=== PATIENT | male | born 1980 | race African-American/Black ===

== ENCOUNTER 2024-07-14 11:13 | Inpatient (IN) | payer MEDICAID, OTHER ==
[~2024-07-14] VITALS: Ht 175.3 cm; Wt 116.0 kg
[2024-07-14] MEDS: FUROSEMIDE 40 MG/4 ML VIAL IV SCH (00:55)
--- NOTE | 2024-07-14 13:05 | ED.PDOC ---
Musculoskeletal HPI Comments 43 year old male presents to the ED with chief complaint of bilateral leg swelling. Patient reports that he has been experiencing worsening bilateral leg swelling with associated SOB with exertion for the past 4 days. Patient relays that he has history of CHF and DVT in bilateral legs and takes Lasix daily, however, he has been out of Xarelto for the past 2 months, being unable to get it at all. Patient denies any chest pain, headache, dizziness, numbness, weakness, or cough. Chief Complaint: Extremity Swelling Time Seen by MD: 13:02 Reviewed Notes: Nurses Notes, Medications, Allergies Allergies: Coded Allergies: NO KNOWN ALLERGIES (Unverified , 07/14/24) Information Source: Patient Mode of Arrival: Ambulatory Location: Bilateral Extremity Location: Leg Timing: Days Prehospital treatment: None Severity: Moderate Able to Move Extremity: Yes Bear Weight: Fully Pain: None Mechanism: Spontaneous Circumstances: Spontaneous Onset of Symptoms: Spontaneous Symptoms: Swelling DVT Risk Factors: CHF, DVT Past Medical History PAST MEDICAL HISTORY: CHF Past Medical History (Other): DVT bilateral legs Surgical History: Denies all surgeries Family History Family History: Reviewed,noncontributory to illness Social History Smoker: Non-Smoker Alcohol: Occasionally Drugs: Marijuana Lives In: Home Constitutional: denies: chills, diaphoresis, fatigue, fever, malaise, sweats, weakness, others EENTM: denies: blurred vision, double vision, ear bleeding, ear discharge, ear drainage, ear pain, ear ringing, eye pain, eye redness, hearing loss, mouth pain, mouth swelling, nasal discharge, nose bleeding, nose congestion, nose pain, photophobia, tearing, throat pain, throat swelling, voice changes, others Respiratory: reports: SOB with excertion; denies: cough, hemoptysis, orthopnea, SOB at rest, shortness of breath, stridor, wheezing, others Cardiovascular: reports: edema (Bilateral legs); denies: chest pain, dizzy spells, diaphoresis, Dyspnea on exertion, irregular heart beat, left arm pain, lightheadedness, palpitations, PND, syncope, others Gastrointestinal: denies: abdomen distended, abdominal pain, blood streaked bowels, constipated, diarrhea, dysphagia, difficulty swallowing, hematemesis, melena, nausea, poor appetite, poor fluid intake, rectal bleeding, rectal pain, vomiting, others Genitourinary: denies: burning, dysuria, flank pain, frequency, hematuria, incontinence, penile discharge, penile sore, pain, testicle pain, testicle swelling, urgency, others Neurological: denies: dizziness, fainting, headache, left sided numbness, left sided weakness, numbness, paresthesia, pre-existing deficit, right sided numbness, right sided weakness, seizure, speech problems, tingling, tremors, weakness, others Musculoskeletal: denies: back pain, gout, joint pain, joint swelling, muscle pain, muscle stiffness, neck pain, others Integumetry: denies: bruises, change in color, change in hair/nails, dryness, laceration, lesions, lumps, rash, wounds, others Allergic/Immunocompromised: denies: Difficulty Healing, Frequent Infections, Hives, Itching, others Hematologic/Lymphatic: denies: anemia, blood clots, easy bleeding, easy bruising, swollen glands, others Endocrine: denies: excessive hunger, excessive sweating, excessive thirst, excessive urination, flushing, intolerance to cold, intolerance to heat, unexplained weight gain, unexplained weight loss, others Psychiatric: denies: anxiety, bipolar disorder, depression, hopeless, panic disorder, schizophrenia, sleepless, suicidal, others All Other Systems: Reviewed and Negative Physical Exam General Appearance: Moderate Distress, Normal HEENT: Normal ENT Inspection, PERRL/EOMI Neck: Full Range of Motion, Non-Tender, Normal, Normal Inspection Respiratory: Chest Non-Tender, Lungs Clear, No Accessory Muscle Use, No Respiratory Distress, Normal Breath Sounds Cardiovascular: No Edema, No JVD, No Murmur, No Gallop, Normal Peripheral Pulses, Tachycardia Breast Exam: Deferred Gastrointestinal: No Organomegaly, Non Tender, No Pulsatile Mass, Normal Bowel Sounds, Soft Genitalia: Deferred Pelvic: Deferred Rectal: Deferred Extremities: No calf tenderness, Normal capillary refill, Normal range of motion, Non-tender, Pedal edema, Swelling (Bilateral lower extremity) Musculoskeletal : Apperance: Normal Neurologic: Alert, probe operator II-XII nml as Tested, No Motor Deficits, Normal Affect, Normal Mood, No Sensory Deficits Cerebellar Function: Normal Reflexes: Normal Skin: Dry, Normal Color, Warm Peripheral Pulses: 3+ Radial (R), 3+ Radial (L) Lymphatic: No Adenopathy Was a procedure done? Was a procedure done?: No Differential Diagnosis EXT Differential Diagnosis: Deep Vein Thrombosis, Strain X-Ray, Labs, Meds, VS Vital Signs Date Time Temp Pulse Resp B/P (MAP) Pulse Ox O2 Delivery O2 Flow Rate FiO2 07/14/24 12:32 117 07/14/24 12:29 97.9 117 18 122/97 (105) 99 Lab Test 07/14/24 13:10 Range/Units White Blood Count 7.0 4.4-10.8 10^3/uL Red Blood Count 4.85 4.5-5.90 10^6/uL Hemoglobin 15.9 13.5-17.5 g/dL Hematocrit 48.2 41.0-53.0 % Mean Corpuscular Volume 99.2 80.0-100.0 fL Mean Corpuscular Hemoglobin 32.7 H 28.0-32.0 pg Mean Corpuscular Hemoglobin Concent 33.0 32.0-36.0 g/dL Red Cell Distribution Width 14.8 H 11.8-14.3 % Platelet Count 178 140-450 10^3/uL Mean Platelet Volume 9.6 6.9-10.8 fL Neutrophils (%) (Auto) 64.4 37.0-80.0 % Lymphocytes (%) (Auto) 20.8 10.0-50.0 % Monocytes (%) (Auto) 12.2 H 0.0-12.0 % Eosinophils (%) (Auto) 1.9 0.0-7.0 % Basophils (%) (Auto) 0.7 0.0-2.0 % Neutrophils # (Auto) 4.5 1.6-8.6 10 ^3/uL Lymphocytes # (Auto) 1.5 0.4-5.4 10 ^3/uL Monocytes # (Auto) 0.9 0-1.3 10 ^3/uL Eosinophils # (Auto) 0.1 0-0.8 10 ^3/uL Basophils # (Auto) 0 0-0.2 10 ^3/uL Nucleated Red Blood Cells 0.1 % Sodium Level 146 H 136-145 mmol/L Potassium Level 3.7 3.5-5.1 mmol/L Chloride Level 110 H 98-107 mmol/L Carbon Dioxide Level 29 20-31 mmol/L Anion Gap 7 5-15 Blood Urea Nitrogen 14 9-23 mg/dL Creatinine 1.41 H 0.700-1.30 mg/dL Glomerular Filtration Rate Calc 64 >90 mL/min BUN/Creatinine Ratio 9.9 L 10.0-20.0 Serum Glucose 98 74-106 mg/dL Calcium Level 9.2 8.7-10.4 mg/dL B-Type Natriuretic Peptide 1282.51 0-100 pg/mL Patient alert. Complaining of bilateral lower extremity swelling. Vitals stable. Answering all questions pain On examination he does have swelling of lower extremity. Establish intravenous access. Was given Lasix. History of DVT. He has stopped taking his blood thinner. Reviewed his previous visit. Explained to the patient. Continue cardiac monitoring. EKG reviewed does not show any acute changes. Bilat DVT US: Findings: RIGHT SIDE: The common femoral vein demonstrates appropriate compressibility and waveform variability. There is compressibility/patency of the great saphenous vein at the proximal thigh. The femoral vein demonstrates appropriate compressibility and waveform variability. The deep femoral vein demonstrates appropriate compressibility and waveform variability. The popliteal vein demonstrates appropriate compressibility and waveform variability. There is normal compressibility at the tibioperoneal trunk. LEFT SIDE: The common femoral vein demonstrates appropriate compressibility and waveform variability. There is compressibility/patency of the great saphenous vein at the proximal thigh. The femoral vein demonstrates appropriate compressibility and waveform variability. The deep femoral vein demonstrates appropriate compressibility and waveform variability. The popliteal vein demonstrates appropriate compressibility and waveform variability. There is normal compressibility at the tibioperoneal trunk. Impression: 1. No right or left femoropopliteal venous thrombosis. Time of 1ST Reevaluation: 14:02 Reevaluation 1ST: Unchanged Patient Education/Counseling: Diagnosis, Treatment Family Education/Counseling: No Family Present Additional Information The following tests were ordered, and results were reviewed by me: Bilateral DVT US, EKG, BMP, BNP, CBC I reviewed and agreed with the following test results read by other providers: Bilateral DVT US I discussed treatment and results with medical personnel. Departure 1 Departure Time of Disposition: 13:32 Impression: Primary Impression: CHF (congestive heart failure) Qualified Codes: I50.43 - Acute on chronic combined systolic (congestive) and diastolic (congestive) heart failure Disposition: ADMITTED INPATIENT Admit to: Med Surg Condition: Guarded Critical Care Note Critical Care Time?: Yes (45 min-critical care time only) Stability Stability form required: No Heart Score Heart Score: Heart Score Response (Comments) Value History Slightly Suspicious 0 EKG Normal 0 Age <45 0 Risk Factors 1 or 2 risk factors 1 Troponin Normal limit 0 Total 1 I personally scribed for OMAYRA BERNARD MD ([email or web address]) on 07/14/24 at 13:05. Electronically submitted by Vito Jaimes ([email or web address]). I personally scribed for OMAYRA BERNARD MD ([email or web address]) on 07/14/24 at 15:31. Electronically submitted by Vito Jaimes ([email or web address]). OMAYRA BERNARD MD Jul 14, 2024 13:05
--- NOTE | 2024-07-14 13:39 | DVH ---
Bilateral lower extremity venous duplex Clinical History: dvt Comparison: None Technique: Duplex doppler evaluation of the deep venous systems of both lower extremities from the common femora l veins to the popliteal veins including color doppler and spectral/pulsed waveform analysis was perf ormed. Findings: RIGHT SIDE: The common femoral vein demonstrates appropriate compressibility and waveform variability. There is compressibility/patency of the great saphenous vein at the proximal thigh. The femoral vein demonstrates appropriate compressibility and waveform variability. The deep femoral vein demonstrates appropriate compressibility and waveform variability. The popliteal vein demonstrates appropriate compressibility and waveform variability. There is normal compressibility at the tibioperoneal trunk. LEFT SIDE: The common femoral vein demonstrates appropriate compressibility and waveform variability. There is compressibility/patency of the great saphenous vein at the proximal thigh. The femoral vein demonstrates appropriate compressibility and waveform variability. The deep femoral vein demonstrates appropriate compressibility and waveform variability. The popliteal vein demonstrates appropriate compressibility and waveform variability. There is normal compressibility at the tibioperoneal trunk. Impression: 1. No right or left femoropopliteal venous thrombosis.
[2024-07-14 13:45] LABS: Basophils # (auto) 0 10 ^3/uL (0-0.2); Basophils % (auto) 0.7 % (0.0-2.0); Eosinophils # (auto) 0.1 10 ^3/uL (0-0.8); Eosinophils % (auto) 1.9 % (0.0-7.0); Hematocrit 48.2 % (41.0-53.0); Hemoglobin 15.9 g/dL (13.5-17.5); Lymphocytes # (auto) 1.5 10 ^3/uL (0.4-5.4); Lymphocytes % (auto) 20.8 % (10.0-50.0); Mean Corpuscular Hemoglobin 32.7 pg (28.0-32.0); Mean Corpuscular Volume 99.2 fL (80.0-100.0); Monocytes # (auto) 0.9 10 ^3/uL (0-1.3); Monocytes % (auto) 12.2 % (0.0-12.0); Neutrophils # (auto) 4.5 10 ^3/uL (1.6-8.6); Neutrophils % (auto) 64.4 % (37.0-80.0); Nucleated Red Blood Cells % 0.1 %; Platelet Count (auto) 178 10^3/uL (140-450); Red Blood Cells 4.85 10^6/uL (4.5-5.90); Red Cell Distribution Width 14.8 % (11.8-14.3)
[2024-07-14 13:47] LABS: Potassium 3.7 mmol/L (3.5-5.1)
[2024-07-14 13:48] LABS: Anion Gap 7 (5-15); Calcium 9.2 mg/dL (8.7-10.4); Carbon Dioxide 29 mmol/L (20-31)
[2024-07-14 13:53] LABS: BUN/Creatinine Ratio 9.9 (10.0-20.0); Blood Urea Nitrogen 14 mg/dL (9-23); Glucose 98 mg/dL (74-106)
[2024-07-14 14:00] LABS: Chloride 110 mmol/L (98-107); Sodium 146 mmol/L (136-145)
[2024-07-14] MEDS: FUROSEMIDE 40 MG/4 ML VIAL IV ONE (20:25)
[2024-07-14 20:34] VITALS: PULSE 121; RESP 20; O2SAT 94
[2024-07-14] MEDS ORDERED: NITROGLYCERIN 0.4 MG SL TAB SL PRN (20:45)
[2024-07-14] MEDS ORDERED: MELATONIN 5 MG TAB PO PRN (20:45)
[2024-07-14] MEDS ORDERED: ONDANSETRON HCL 4 MG/2 ML VIAL IV PRN (20:45)
[2024-07-14] MEDS ORDERED: MORPHINE SULFATE INJ 2 MG/ml SYRG IV PRN (20:45)
[2024-07-14] MEDS ORDERED: ACETAMINOPHEN 325 MG TAB PO PRN (20:45)
--- NOTE | 2024-07-14 20:53 | DVH ---
EXAM: XY CHEST TWO VIEWS ROUTINE TECHNIQUE: Two radiographic views of the chest CLINICAL HISTORY: sob COMPARISON: None Findings/Impression: Frontal and lateral chest radiographs demonstrate no acute osseous or superficial soft tissue abnorma lities. The trachea is midline. Cardiomegaly with pulmonary vascular congestion. No pneumothorax, pleural effusions, or consolidations.
--- NOTE | 2024-07-15 00:13 | DVHHP2 ---
Admitting Diagnosis: Acute on chronic CHF exacerbation History of Present Illness History Source: Patient Exam Limitations: No limitations HPI Mr. Jw Cifuentes is a 43 year old male with a history of DVT, CHF who presents with a chief complaint of bilateral leg swelling. Patient reports that he has been experiencing worsening bilateral leg swelling with associated SOB with exertion for the past 4 days. Patient denies any chest pain, headache, dizziness, numbness, weakness, cough, fevers, chills, dysuria. Patient reports he is compliant with his medications and had stopped taken his Xarelto a couple months ago unknown if he was taken off it by PCP. Patient admitted for further evaluation and treatment. Past Medical History Cardiac: CHF Pulmonary: No pertinent Hx Central Nervous System: No pertinent Hx GI: No pertinent Hx Hemotology/Oncology: No pertinent Hx Hepatobiliary: No pertinent Hx Psychiatric: No pertinent Hx Musculoskeletal: No pertinent Hx Rheumotologic: No pertinent Hx Infectious Disease: No peritnent Hx ENT: No pertinent Hx Renal/: No pertinent Hx Endocrine: No pertinent Hx Dermatology: No pertinent Hx Others DVT Smoker: No Hx (Negative) Alocohol: Occassional Drugs: Marijuana, Amphetimines Domestic Violence: Neg Review of Systems Constitutional: No symptom reported Ears, Nose, & Throat: No symptom reported Eyes: No symptom reported Pulmonary/Respiratory: Dyspnea (exertional dyspnea) Cardiovascular: No symptom reported Gastrointestinal: No symptom reported Genitourinary: No symptom reported Musculoskeletal: No symptom reported Skin: No symptom reported Psychiatric: No symptom reported Endocrine: No symptom reported Hemotologic/Lymphatic: No symptom reported H&P Exam Vital Signs Vital Signs Date Time Temp Pulse Resp B/P (MAP) Pulse Ox O2 Delivery O2 Flow Rate FiO2 07/14/24 20:50 121 07/14/24 20:34 20 94 Room Air* 0 21 07/14/24 20:34 97.4 131/97 (108) 97.4 General Appeara: Well developed, Well nourished, Normal Appearance Head Exam: Normal inspection Neck Exam: Normal inspection, Non-tender, Normal alignment Eye Exam: bilateral eye Normal inspection, bilateral eye PERRL, bilateral eye EOMI Ear Exam: bilateral ear Auricle normal Nasal Exam: Normal inspection Mouth: Normal Inspection Pulmonary/Respiratory: Normal inspection, Normal breath sounds, Chest non- tender, Lungs clear Cardiovascular/Chest: Normal inspection, Edema, Regular rate, Normal Rhythm Peripheral Pulses: 2+ dorsalis pedis (R), 2+ dorsalis pedis (L), 2+ Radial (R), 2+ Radial (L) Abdominal Exam: Normal bowel sounds, Soft Male Genital Exam: Not done Legs: bilateral leg swelling 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 Exam: Normal hearing, Normal speech, PERRL Motor/Sensory: Normal sensory function, Normal motor function Neuro/Mental St: Alert, Oriented Appearance: Appropriate appearance, Appropriate insight Eye contact/ Speech: Cooperative, Good eye contact, Normal speech Thoughts/Psych: Normal thought pattern Skin Exam: Normal inspection, Normal color, Warm/dry Labs/Xrays Labs Test 07/14/24 13:10 Range/Units White Blood Count 7.0 4.4-10.8 10^3/uL Red Blood Count 4.85 4.5-5.90 10^6/uL Hemoglobin 15.9 13.5-17.5 g/dL Hematocrit 48.2 41.0-53.0 % Mean Corpuscular Volume 99.2 80.0-100.0 fL Mean Corpuscular Hemoglobin 32.7 H 28.0-32.0 pg Mean Corpuscular Hemoglobin Concent 33.0 32.0-36.0 g/dL Red Cell Distribution Width 14.8 H 11.8-14.3 % Platelet Count 178 140-450 10^3/uL Mean Platelet Volume 9.6 6.9-10.8 fL Neutrophils (%) (Auto) 64.4 37.0-80.0 % Lymphocytes (%) (Auto) 20.8 10.0-50.0 % Monocytes (%) (Auto) 12.2 H 0.0-12.0 % Eosinophils (%) (Auto) 1.9 0.0-7.0 % Basophils (%) (Auto) 0.7 0.0-2.0 % Neutrophils # (Auto) 4.5 1.6-8.6 10 ^3/uL Lymphocytes # (Auto) 1.5 0.4-5.4 10 ^3/uL Monocytes # (Auto) 0.9 0-1.3 10 ^3/uL Eosinophils # (Auto) 0.1 0-0.8 10 ^3/uL Basophils # (Auto) 0 0-0.2 10 ^3/uL Nucleated Red Blood Cells 0.1 % Sodium Level 146 H 136-145 mmol/L Potassium Level 3.7 3.5-5.1 mmol/L Chloride Level 110 H 98-107 mmol/L Carbon Dioxide Level 29 20-31 mmol/L Anion Gap 7 5-15 Blood Urea Nitrogen 14 9-23 mg/dL Creatinine 1.41 H 0.700-1.30 mg/dL Glomerular Filtration Rate Calc 64 >90 mL/min BUN/Creatinine Ratio 9.9 L 10.0-20.0 Serum Glucose 98 74-106 mg/dL Calcium Level 9.2 8.7-10.4 mg/dL Magnesium Level 1.7 1.6-2.6 mg/dL B-Type Natriuretic Peptide 1282.51 0-100 pg/mL Assessment/Plan Problem List: (1) CHF (congestive heart failure) Plan 43 yo male with known history of CHF and DVT presents to the hospital with bilateral leg swelling and shortness of breath with exertion. Patient found to have 1. Acute on chronic CHF exacerbation 2. Acute kidney injury Admit Telemetry unit Cardiology consultation, 2D echocardiogram Fluid Restriction/strict I&O's DVT ppx Heparin SC IV diuresis Furosemide Discussed all above with patient who verbalizes agreement and understanding of care plan. All questions were answered. Discussed assessment and care plan with supervising MD. Plan discussed with: Patient, Other Code Visit Code Visit Total Time (mins): 45 Additional Comments Additional Comments Additional Comments 83-year-old male with a known history of congestive heart failure initially admitted to the hospital with the increasing shortness a breath and bilateral leg swelling found to have 1. Acute CHF exacerbation unspecified 2. Bilateral leg swelling 3. Shortness of breath secondary to 1. Plan IV diuretics, 2D echo cardiology consultation. GUEVARA STOUT Jul 15, 2024 00:13 CATALINA SHIPLEY MD Jul 15, 2024 15:48
[2024-07-15 01:00] VITALS: O2SAT 96
[2024-07-15] MEDS: METOPROLOL TARTRATE 25 MG TAB PO SCH (01:04)
[2024-07-15] MEDS: HYDROcodone-ACET 5/325MG TAB PO PRN (01:05)
[2024-07-15] MEDS: HEPARIN SODIUM (PORCINE) 5000 UNITS/ML 1ML VIAL SC SCH (01:05)
[2024-07-15 06:39] LABS: Potassium 3.7 mmol/L (3.5-5.1); Sodium 144 mmol/L (136-145)
[2024-07-15 06:40] LABS: Anion Gap 8 (5-15); Calcium 9.2 mg/dL (8.7-10.4); Carbon Dioxide 28 mmol/L (20-31)
[2024-07-15 06:42] LABS: Chloride 108 mmol/L (98-107)
[2024-07-15 06:45] LABS: BUN/Creatinine Ratio 10.7 (10.0-20.0); Blood Urea Nitrogen 17 mg/dL (9-23)
[2024-07-15 08:04] LABS: Glucose 119 mg/dL (74-106)
[2024-07-15] MEDS: FAMOTIDINE 20 MG TAB PO SCH (09:50)
[2024-07-15 10:00] VITALS: PULSE 104; RESP 24; O2SAT 96
--- NOTE | 2024-07-15 15:12 | DVHSR ---
APPROVED REPORT EXAM: Two-dimensional and M-mode echocardiogram with Doppler and color Doppler. Blood Pressure: 120/92 mmHg INDICATION CHF SOB RISK FACTORS Height: 5' 9", Weight: 234 DIMENSIONS LVDd6.8 (3.8-5.7cm)LA (2D)5.0 (1.9-4.0cm)Aortic Root3.5 (2.0-3.7cm) LVDs6.5 (2.5-4.0cm)LA (MM) (1.9-4.0cm)Aortic Cusp Exc2.0 (1.5-2.0cm) EF (%) 10.0 (55-70%)Rt. Atrium4.7 (1.9-4.0cm)Asc. Aorta cm IVSd1.3 (0.7-1.1cm)RV (D) (1.8-2.4cm) PWd1.4 (0.7-1.1cm) Mitral Valve MitralMitral Stenosis E wave1.20m/sMV Mean GR.mmHg E/A ratio0.02D MVAcm2 Aortic Valve Aortic ValveAortic Stenosis V10.40m/Cris Mean GR.4mmHg V21.30m/Cris Peak GR.7mmHg LVOT Diameter2.5 (1.8-2.4cm)Doppler AVA1.51cm2 Pulmonic Valve V20.50m/s Tricuspid Valve TR Velocity2.90m/s [id number] Conclusion END STAGE DILATED CARDIOMYOPATHY DILATED ALL CARDIAC CHAMBERS WITH GLOBAL HYPOKINESIS LV EJECTION FRACTION IS ONLY 10% MODERATE DEGREE MR RVSP IS 40 MM OF HG AND IS HIGH NORMAL VALVES NO EFFUSION
[2024-07-15 19:00] VITALS: BP 118/72; PULSE 110; PULSE 56; RESP 18; RESP 19; TEMP 98.1; O2SAT 96; O2SAT 98
[2024-07-15] MEDS ORDERED: FURO40TA4 PO (19:07)
[2024-07-15] MEDS ORDERED: RIV20T PO (19:07)
[2024-07-15] MEDS ORDERED: POTA-180 PO (19:07)
[2024-07-15 20:00] VITALS: PULSE 113; PULSE 64; RESP 18; O2SAT 96
[2024-07-15 21:00] VITALS: BP 118/73; PULSE 60; RESP 20; TEMP 98.7; O2SAT 98
[2024-07-16] VITALS (7 sets, daily range): BP systolic 103–147; BP diastolic 52–80; PULSE 55–111; RESP 17–21; TEMP 97.4–98.4; O2SAT 96–100
[2024-07-16 07:27] LABS: Potassium 3.7 mmol/L (3.5-5.1)
[2024-07-16 07:28] LABS: Anion Gap 6 (5-15); Carbon Dioxide 31 mmol/L (20-31)
[2024-07-16 07:29] LABS: Calcium 9.3 mg/dL (8.7-10.4)
[2024-07-16 07:33] LABS: BUN/Creatinine Ratio 11.8 (10.0-20.0); Blood Urea Nitrogen 19 mg/dL (9-23)
[2024-07-16 07:34] LABS: Chloride 109 mmol/L (98-107); Glucose 109 mg/dL (74-106); Sodium 146 mmol/L (136-145)
--- NOTE | 2024-07-16 15:21 | ECG ---
[facility] Test Date: 2024-07-14 Test Time: 12:32:07 Pat Name: [facility] Gender: M Power Barker Operator: BRIDGET : 1980 Requested By: OMAYRA BERNARD Order Number: [id number] Reading MD: Shade Pizano Measurements Intervals [place] Rate: 117 P: 54 ME: 176 QRS: 25 QRSD: 89 T: 161 QT: 330 QTc: 461 Interpretive Statements Sinus tachycardia Left atrial enlargement Nonspecific T abnormalities, lateral leads Electronically Signed On 07-17-2024 13:04:45 PST by Shade Pizano Please click the below link to view image of tracing.
--- NOTE | 2024-07-16 15:22 | ECG ---
[facility] Test Date: 2024-07-14 Test Time: 20:50:46 Pat Name: [facility] Department: ER Room: [facility] Gender: M Appian Developer: MERNA : 1980 Requested By: OMAYRA BERNARD Order Number: [id number] Reading MD: Shade Pizano Measurements Intervals [place] Rate: 121 P: 83 NC: 205 QRS: 89 QRSD: 93 T: -63 QT: 322 QTc: 457 Interpretive Statements Sinus tachycardia Prolonged NC interval Left atrial enlargement Borderline repolarization abnormality Electronically Signed On 07-17-2024 13:05:19 PST by Shade Pizano Please click the below link to view image of tracing.
--- NOTE | 2024-07-16 16:30 | DVHPN2 ---
Subjective Patient was still has 2+ pitting edema. 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 Medications Current Medications Medications Dose Ordered Sig/Pravin Route Start Time Stop Time Status Last Admin Dose Admin Nitroglycerin 0.4 mg Q5MINP PRN SL 07/14/24 20:45 Morphine Sulfate 2 mg Q30M PRN IV 07/14/24 20:45 Ondansetron HCl 4 mg Q6HPRN PRN IV 07/14/24 20:45 Melatonin 5 mg ONCE@2200 PRN PO 07/14/24 20:45 Acetaminophen/ Hydrocodone Bitart 1 tab Q6HPRN PRN PO 07/14/24 20:45 07/15/24 01:05 1 TAB Acetaminophen 650 mg Q6HPRN PRN PO 07/14/24 20:45 Famotidine 20 mg DAILY PO 07/15/24 10:00 07/16/24 10:10 20 MG Furosemide 40 mg BID IV 07/14/24 22:00 07/16/24 10:12 40 MG Heparin Sodium (Porcine) 5,000 units BID SC 07/14/24 22:00 07/16/24 10:25 5,000 UNITS Metoprolol Tartrate 25 mg BID PO 07/14/24 22:00 07/16/24 10:12 25 MG Laboratory Results Laboratory Tests 07/14/24 13:10 07/16/24 06:10 Chemistry Test 07/16/24 06:10 Calcium Level 9.3 mg/dL (8.7-10.4) Assessment/Plan Assessment/Plan 83-year-old male with a known history of congestive heart failure initially admitted to the hospital with the increasing shortness a breath and bilateral leg swelling found to have 1. Acute CHF exacerbation unspecified 2. Bilateral leg swelling 3. Shortness of breath secondary to 1. -continue IV diuretics, discharge plan. Plan discussed with: Patient Date of Service: Jul 16, 2024 Billing Provider: CATALINA SHIPLEY MD Common Visit Codes: NOT BILLABLE CATALINA SHIPLEY MD Jul 16, 2024 16:30
[2024-07-17] VITALS (9 sets, daily range): BP systolic 107–133; BP diastolic 71–88; PULSE 81–111; RESP 16–48; TEMP 97.5–98.3; O2SAT 94–98
--- NOTE | 2024-07-17 02:16 | DVHINCON2 ---
DATE OF CONSULTATION: 07/16/2024 REFERRING PHYSICIAN: ____. CONSULTING PHYSICIAN: Dr. Rowe. INDICATION: Shortness of breath. HISTORY OF PRESENT ILLNESS: The patient is a 43-year-old male with history of CHF, DVT on anticoagulation, cardiomyopathy, history of illicit drug use including methamphetamine, who presented to the hospital with complaints of shortness of breath and lower extremity edema. Admitted with diagnosis of decompensated heart failure. Currently, the patient is on IV Lasix. PAST MEDICAL HISTORY: * Hypertension. * CHF. * DVT * Illicit drug use. MEDICATIONS: Per med rec. ALLERGIES: No known drug allergies. PHYSICAL EXAMINATION: GENERAL: Alert and awake, in no form of cardiopulmonary distress. VITAL SIGNS: Blood pressure 109/64, pulse 55 per minute, saturation 97%. HEENT: No carotid bruits. No jugular venous distention. CHEST: Bilateral air entry, scattered wheeze and rhonchi. CARDIOVASCULAR: Precordial and carotid pulses palpable. Normal S1 and S2. EXTREMITIES: Bilateral 2+ pitting edema. DIAGNOSTIC DATA: CBC is normal. Sodium 146, potassium 3.7, creatinine is 1.6, BNP is 1282. ASSESSMENT: * [id number] systolic heart failure. 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 * Methamphetamine use. * Hypertension. * History of deep venous thrombosis. RECOMMENDATIONS: * Agree with diuresis. * Continue IV Lasix. * Restrict salt and fluid intake. * Monitor input and output closely. * Advised the patient to refrain from illicit drug use. * Continue tele monitoring. Thank you for allowing me to participate in the care of this patient. MD NURY Brown/KURTIS/ESTEPHANIA TID: [id number] RECEIPT: [id number]
[2024-07-17] MEDS ORDERED: FURO40TA4 PO (17:28)
[2024-07-17] MEDS ORDERED: MET25T PO (17:28)
[2024-07-17] MEDS ORDERED: RIV20T PO (17:28)
[2024-07-17] MEDS ORDERED: POTA-180 PO (17:28)
[2024-07-17] MEDS ORDERED: POTA-215 PO (17:29)
--- NOTE | 2024-07-17 17:34 | DVHDS2 ---
Discharge Summary Date of Admission Jul 14, 2024 at 20:42 Date of Discharge: Jul 17, 2024 Labs/Diagnostic Data: Laboratory Results Test 07/16/24 06:10 07/14/24 13:10 Sodium Level 146 mmol/L (136-145) Potassium Level 3.7 mmol/L (3.5-5.1) Chloride Level 109 mmol/L (98-107) Carbon Dioxide Level 31 mmol/L (20-31) Anion Gap 6 (5-15) Blood Urea Nitrogen 19 mg/dL (9-23) Creatinine 1.61 mg/dL (0.700-1.30) Glomerular Filtration Rate Calc 54 mL/min (>90) BUN/Creatinine Ratio 11.8 (10.0-20.0) Serum Glucose 109 mg/dL (74-106) Calcium Level 9.3 mg/dL (8.7-10.4) White Blood Count 7.0 10^3/uL (4.4-10.8) Red Blood Count 4.85 10^6/uL (4.5-5.90) Hemoglobin 15.9 g/dL (13.5-17.5) Hematocrit 48.2 % (41.0-53.0) Mean Corpuscular Volume 99.2 fL (80.0-100.0) Mean Corpuscular Hemoglobin 32.7 pg (28.0-32.0) Mean Corpuscular Hemoglobin Concent 33.0 g/dL (32.0-36.0) Red Cell Distribution Width 14.8 % (11.8-14.3) Platelet Count 178 10^3/uL (140-450) Mean Platelet Volume 9.6 fL (6.9-10.8) Neutrophils (%) (Auto) 64.4 % (37.0-80.0) Lymphocytes (%) (Auto) 20.8 % (10.0-50.0) Monocytes (%) (Auto) 12.2 % (0.0-12.0) Eosinophils (%) (Auto) 1.9 % (0.0-7.0) Basophils (%) (Auto) 0.7 % (0.0-2.0) Neutrophils # (Auto) 4.5 10 ^3/uL (1.6-8.6) Lymphocytes # (Auto) 1.5 10 ^3/uL (0.4-5.4) Monocytes # (Auto) 0.9 10 ^3/uL (0-1.3) Eosinophils # (Auto) 0.1 10 ^3/uL (0-0.8) Basophils # (Auto) 0 10 ^3/uL (0-0.2) Nucleated Red Blood Cells 0.1 % Magnesium Level 1.7 mg/dL (1.6-2.6) B-Type Natriuretic Peptide 1282.51 pg/mL (0-100) Other Laboratory Tests 07/16/24 06:10 07/14/24 13:10 Brief Hx & Hospital Course: 43-year-old male he has been dealing with history of cardiomyopathy with EF of 10%, chronic methamphetamine use presented to the hospital with a by the leg swelling found to have acute CHF exacerbation with systolic dysfunction. Patient was given IV diuresis and started on beta-ernestine. Patient does have known history of DVT currently on Xarelto as well be due to patient medical history all the prescription B12 to be given. Patient was being discharged in his stable condition medical was follow up as an outpatient with the PCP but the repeat BMP has been as follow up with the Cardiology one week. Condition at Discharge: Stable Final Diagnosis/Problems List 1. Acute CHF exacerbation currently compensated 2. Bilateral leg swelling currently resolved incident 3. Cardiomyopathy with the EF of 10% 4. Chronic illicit drug use/methamphetamine use Discharge Disposition: Home SNF Discharge Will this Physician continue t: No Discharge Instruct/Medications Diet: Cardiac 2g Na,low cholest Activity: No Restrictions, As Tolerated Follow Up/Referral: Follow up with the PCP but the repeat BMP in one week Follow up with Dr. Rowe in one week Medications: Resume home medications including Lasix, Klor-Con, potassium, new medication given by his beta ernestine metoprolol tartrate 25 mg twice a day Discharge Statement: "Patient was advised to return to the ER or call 911 if any headaches, dizziness, shortness of breath, chest pain, abdominal pain, bleeding, fevers, or worsening of medical condition. Patient was counseled about treatment plan, medications, possible side effects, patientverbalized understanding. All questions were answered to the best of my ability. This discharge took greater then 30 minutes in planning, reviewing documentation, counseling the patient, and discussing with other team members." ASSESSMENT ASSESSMENT Assessment 1. Acute CHF exacerbation currently compensated 2. Bilateral leg swelling currently resolved incident 3. Cardiomyopathy with the EF of 10% 4. Chronic kidney disease drug use/methamphetamine use Date of Service: Jul 17, 2024 Billing Provider: CATALINA SHIPLEY MD Common Visit Codes: 81290-AZU/OBS DISCH DAY >30min CATALINA SHIPLEY MD Jul 17, 2024 17:34
== END 2024-07-17 21:00 | disposition home or self-care (01) | DRG 194 ==
LOC: ER 11:13 → TELE 20:42 → TELE-WESTW 07-15 18:48
PROVIDERS: ADMIT Nurse Practitioner Family; ATTEND Nurse Practitioner Family
DX: I13.0 Hypertensive heart and chronic kidney disease with heart failure and stage 1 through stage 4 chronic kidney disease, or unspecified chronic kidney disease (principal); N17.0 Acute kidney failure with tubular necrosis; I42.0 Dilated cardiomyopathy; I50.43 Acute on chronic combined systolic (congestive) and diastolic (congestive) heart failure; N18.9 Chronic kidney disease, unspecified; F15.90 Other stimulant use, unspecified, uncomplicated; Z86.718 Personal history of other venous thrombosis and embolism; Z87.891 Personal history of nicotine dependence
CPT/HCPCS: 36415; 71046; 80048; 83735; 83880; 85025; 93005; 93306; 93970; 99291; G0378

== ENCOUNTER 2024-09-04 11:18 | Inpatient (IN) | payer MEDICAID ==
[~2024-09-04] VITALS: Ht 175.3 cm; Wt 108.2 kg
[~2024-09-04 11:18] MED LIST: FURO40TA4 PO; MET25T PO; POTA-215 PO; RIV20T PO
[2024-09-04 11:29] VITALS: PULSE 100; RESP 18; O2SAT 97
--- NOTE | 2024-09-04 12:20 | ED.PDOC ---
History of Present Illness HPI Comments 43-year-old male who comes in with chief complaint of leg swelling times approximately two days. There has been no nausea, vomiting or diarrhea. The patient was also having some shortness a breath. He states that he was at a [employer] party and ever since then he has been going downhill. He denies any cough or chest pain. He does have a history of congestive heart failure and does take his Lasix. The shortness for breath seems to be worsening with ambulation and is leg swelling seems to be worsening so he came to the emergency department's for evaluation. There has been no fever or cough. Chief Complaint: Shortness of Breath Time Seen by MD: 11:42 Reviewed Notes: Nurses Notes, Medications, Allergies (No allergies to medications) Allergies: Coded Allergies: NO KNOWN ALLERGIES (Unverified , 07/14/24) Home Meds Active Scripts Potassium Chloride (Klor-Con M10) 10 Meq Tab, 1 TAB PO DAILY, #30 TAB 5 Refills Prov:CATALINA SHIPLEY MD 07/17/24 Metoprolol Tartrate (Lopressor) 25 Mg Tb, 25 MG PO BID, #120 TAB Prov:CATALINA SHIPLEY MD 07/17/24 Furosemide (Furosemide) 40 Mg Tab, 1 TAB PO DAILY, #60 TAB Prov:CATALINA SHIPLEY MD 07/17/24 Rivaroxaban (Xarelto Tablet) 20 Mg Tb, 1 TAB PO DAILY for 60 Days, #60 TAB Prov:CATALINA SHIPLEY MD 07/17/24 Information Source: Patient Mode of Arrival: Ambulatory Severity: Moderate Timing: Days Duration: Since onset Prehospital treatment: None Associated signs and symptoms Associated shortness a breath with leg swelling Past Medical History PAST MEDICAL HISTORY: CHF, High Lipids Past Medical History (Other): CKD Surgical History: Denies all surgeries Family History Family History: No family hx of Cancer, No family hx of DM, No family hx of Heart mike Social History Smoker: Cigarettes Alcohol: Occasionally Drugs: Marijuana, Methamphetamine Lives In: Home Constitutional: reports: weakness; denies: chills, diaphoresis, fatigue, fever, malaise, sweats, others EENTM: denies: blurred vision, double vision, ear bleeding, ear discharge, ear drainage, ear pain, ear ringing, eye pain, eye redness, hearing loss, mouth pain, mouth swelling, nasal discharge, nose bleeding, nose congestion, nose pain, photophobia, tearing, throat pain, throat swelling, voice changes, others Respiratory: reports: shortness of breath; denies: cough, hemoptysis, orthopnea, SOB at rest, SOB with excertion, stridor, wheezing, others Cardiovascular: denies: chest pain, dizzy spells, diaphoresis, Dyspnea on exertion, edema, irregular heart beat, left arm pain, lightheadedness, palpitations, PND, syncope, others Gastrointestinal: denies: abdomen distended, abdominal pain, blood streaked bowels, constipated, diarrhea, dysphagia, difficulty swallowing, hematemesis, melena, nausea, poor appetite, poor fluid intake, rectal bleeding, rectal pain, vomiting, others Genitourinary: denies: burning, dysuria, flank pain, frequency, hematuria, incontinence, penile discharge, penile sore, pain, testicle pain, testicle swelling, urgency, others Neurological: denies: dizziness, fainting, headache, left sided numbness, left sided weakness, numbness, paresthesia, pre-existing deficit, right sided numbness, right sided weakness, seizure, speech problems, tingling, tremors, weakness, others Musculoskeletal: reports: others (Leg edema); denies: back pain, gout, joint pain, joint swelling, muscle pain, muscle stiffness, neck pain Integumetry: denies: bruises, change in color, change in hair/nails, dryness, laceration, lesions, lumps, rash, wounds, others Allergic/Immunocompromised: denies: Difficulty Healing, Frequent Infections, Hives, Itching, others Hematologic/Lymphatic: denies: anemia, blood clots, easy bleeding, easy bruising, swollen glands, others Endocrine: denies: excessive hunger, excessive sweating, excessive thirst, excessive urination, flushing, intolerance to cold, intolerance to heat, unexplained weight gain, unexplained weight loss, others Psychiatric: denies: anxiety, bipolar disorder, depression, hopeless, panic disorder, schizophrenia, sleepless, suicidal, others Physical Exam General Appearance: Moderate Distress HEENT: Normal ENT Inspection, Pharynx Normal, TMs Normal Neck: Full Range of Motion, Non-Tender, Normal, Normal Inspection Respiratory: Chest Non-Tender, Decreased Breath Sounds, No Accessory Muscle Use, Rales, Respiratory Distress Cardiovascular: No Edema, No JVD, No Murmur, No Gallop, Normal Peripheral Pulses, Regular Rate/Rhythm Breast Exam: Deferred Gastrointestinal: No Organomegaly, Non Tender, No Pulsatile Mass, Normal Bowel Sounds, Soft Genitalia: Deferred Pelvic: Deferred Rectal: Deferred Extremities: No calf tenderness, Normal capillary refill, Pedal edema Musculoskeletal : Apperance: Normal Neurologic: Alert, set rider II-XII nml as Tested, Motor Weakness, Normal Affect, Normal Mood, No Sensory Deficits Cerebellar Function: Normal Reflexes: Normal Skin: Dry, Normal Color, Warm Lymphatic: No Adenopathy Was a procedure done? Was a procedure done?: No EKG EKG : Pulse Rate (adult): 112 [place]: Normal Cardiac Rhythm: ST Hypertrophy: LAE ST: Nonsp Differential Dx Considerations may include: Chest pain, CHF, acute on chronic diastolic heart failure, ACS, kidney failure X-Ray, Labs, Meds, VS Vital Signs Date Time Temp Pulse Resp B/P (MAP) Pulse Ox O2 Delivery O2 Flow Rate FiO2 09/04/24 11:52 18 97 Room Air* 0 21 09/04/24 11:29 100 18 97 Room Air* 0 21 09/04/24 11:29 97.6 100 18 125/100 (108) 97 09/04/24 11:29 97.6 100 18 125/100 (108) 97 97.6 Lab Test 09/04/24 14:18 09/04/24 12:56 Range/Units Troponin I High Sensitivity Pending 41 </=54 ng/L White Blood Count 8.7 4.4-10.8 10^3/uL Red Blood Count 4.78 4.5-5.90 10^6/uL Hemoglobin 15.5 13.5-17.5 g/dL Hematocrit 47.1 41.0-53.0 % Mean Corpuscular Volume 98.4 80.0-100.0 fL Mean Corpuscular Hemoglobin 32.4 H 28.0-32.0 pg Mean Corpuscular Hemoglobin Concent 33.0 32.0-36.0 g/dL Red Cell Distribution Width 15.4 H 11.8-14.3 % Platelet Count 172 140-450 10^3/uL Mean Platelet Volume 9.9 6.9-10.8 fL Neutrophils (%) (Auto) 77.3 37.0-80.0 % Lymphocytes (%) (Auto) 14.2 10.0-50.0 % Monocytes (%) (Auto) 7.4 0.0-12.0 % Eosinophils (%) (Auto) 0.6 0.0-7.0 % Basophils (%) (Auto) 0.5 0.0-2.0 % Neutrophils # (Auto) 6.7 1.6-8.6 10 ^3/uL Lymphocytes # (Auto) 1.2 0.4-5.4 10 ^3/uL Monocytes # (Auto) 0.6 0-1.3 10 ^3/uL Eosinophils # (Auto) 0.1 0-0.8 10 ^3/uL Basophils # (Auto) 0 0-0.2 10 ^3/uL Nucleated Red Blood Cells 0.1 % Sodium Level 139 136-145 mmol/L Potassium Level 4.5 3.5-5.1 mmol/L Chloride Level 106 98-107 mmol/L Carbon Dioxide Level 27 20-31 mmol/L Anion Gap 6 5-15 Blood Urea Nitrogen 9 9-23 mg/dL Creatinine 1.20 0.700-1.30 mg/dL Glomerular Filtration Rate Calc 77 >90 mL/min BUN/Creatinine Ratio 7.5 L 10.0-20.0 Serum Glucose 149 H 74-106 mg/dL Calcium Level 10.1 8.7-10.4 mg/dL B-Type Natriuretic Peptide 2226.53 0-100 pg/mL IV Hep-Lock has been ordered The patient was being given Lasix 40 mg IV push The BNP is 2226.53 The CBC and chemistry panel is within normal limits. The patient was somewhat hypertensive at 125/100 The chest x-ray shows: IMPRESSION: Findings described above may be seen with pulmonary vascular congestion in the appropriate clinical setting. The patient was diagnosis acute on chronic diastolic heart failure A cardiology consult will be obtained. Images Reviewed?: Images reviewed and evaluated by me Time of 1ST Reevaluation: 12:27 Reevaluation 1ST: Unchanged Time of 2ND Reevaluation: 14:34 Reevaluation 2ND: Unchanged Patient Education/Counseling: Diagnosis, Treatment, Prognosis Family Education/Counseling: No Family Present Departure 1 Departure Time of Disposition: 14:35 Impression: Primary Impression: Acute on chronic diastolic heart failure Additional Impression: Elevated brain natriuretic peptide (BNP) level Disposition: 09 ADMITTED INPATIENT Admit to: Tele Condition: Fair Critical Care Note Critical Care Time?: Yes (55 min-critical care time only) Stability Stability form required: Yes Unstable for transfer: Telemetry monitoring (Telemetry monitoring required), ED Physician Assesment (Clinical assesment) Heart Score Heart Score: Heart Score Response (Comments) Value History Moderate Suspicious 1 EKG Repolarization Disturb 1 Age <45 0 Risk Factors 1 or 2 risk factors 1 Troponin Normal limit 0 Total 3 OLIVIA SIMONS MD Sep 04, 2024 12:20
--- NOTE | 2024-09-04 12:31 | DVH ---
CLINICAL INFORMATION: 43 years old, Male; shortness of breath. TECHNIQUE: Frontal and lateral chest radiographs were obtained. COMPARISON: None FINDINGS: Lungs: Bilateral perihilar interstitial opacities. No focal consolidation. No pneumothorax or pleura l effusion. Cardiac: Moderate cardiomegaly. Pulmonary vasculature: Prominence of the pulmonary vasculature. Mediastinum/ibrahima: Within normal limits. Bones: No evidence of acute osseous abnormality. Other: No other significant finding. IMPRESSION: Findings described above may be seen with pulmonary vascular congestion in the appropriate clinical s etting.
[2024-09-04 13:17] LABS: Basophils # (auto) 0 10 ^3/uL (0-0.2); Basophils % (auto) 0.5 % (0.0-2.0); Eosinophils # (auto) 0.1 10 ^3/uL (0-0.8); Eosinophils % (auto) 0.6 % (0.0-7.0); Hematocrit 47.1 % (41.0-53.0); Hemoglobin 15.5 g/dL (13.5-17.5); Lymphocytes # (auto) 1.2 10 ^3/uL (0.4-5.4); Lymphocytes % (auto) 14.2 % (10.0-50.0); Mean Corpuscular Hemoglobin 32.4 pg (28.0-32.0); Mean Corpuscular Volume 98.4 fL (80.0-100.0); Monocytes # (auto) 0.6 10 ^3/uL (0-1.3); Monocytes % (auto) 7.4 % (0.0-12.0); Neutrophils # (auto) 6.7 10 ^3/uL (1.6-8.6); Neutrophils % (auto) 77.3 % (37.0-80.0); Nucleated Red Blood Cells % 0.1 %; Platelet Count (auto) 172 10^3/uL (140-450); Red Blood Cells 4.78 10^6/uL (4.5-5.90); Red Cell Distribution Width 15.4 % (11.8-14.3); White Blood Cell 8.7 10^3/uL (4.4-10.8)
[2024-09-04 13:27] LABS: Chloride 106 mmol/L (98-107); Potassium 4.5 mmol/L (3.5-5.1); Sodium 139 mmol/L (136-145)
[2024-09-04 13:28] LABS: Anion Gap 6 (5-15); Calcium 10.1 mg/dL (8.7-10.4); Carbon Dioxide 27 mmol/L (20-31)
[2024-09-04 13:33] LABS: BUN/Creatinine Ratio 7.5 (10.0-20.0); Blood Urea Nitrogen 9 mg/dL (9-23)
[2024-09-04 13:51] LABS: Glucose 149 mg/dL (74-106)
--- NOTE | 2024-09-04 15:08 | ECG ---
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
[2024-09-04 19:00] VITALS: PULSE 115; RESP 24; O2SAT 99
[2024-09-04] MEDS: FUROSEMIDE 40 MG/4 ML VIAL IV ONE (19:08)
[2024-09-04] MEDS ORDERED: ACETAMINOPHEN 325 MG TAB PO PRN (21:00)
[2024-09-04] MEDS ORDERED: NITROGLYCERIN 0.4 MG SL TAB SL PRN (21:00)
[2024-09-04] MEDS ORDERED: HYDROcodone-ACET 5/325MG TAB PO PRN (21:00)
[2024-09-04] MEDS ORDERED: MORPHINE SULFATE INJ 2 MG/ml SYRG IV PRN (21:00)
[2024-09-04] MEDS ORDERED: ONDANSETRON HCL 4 MG/2 ML VIAL IV PRN (21:00)
[2024-09-04] MEDS ORDERED: DOCUSATE SOD 100 MG CAP PO PRN (21:00)
[2024-09-04] MEDS: METOPROLOL TARTRATE 25 MG TAB PO SCH (22:00)
[2024-09-04 23:27] LABS: Urine Bacteria None Seen /hpf (None Seen)
[2024-09-04 23:37] LABS: Urine Blood Negative /uL (Negative); Urine Clarity Clear (Clear); Urine Color Light-Yellow (Yellow); Urine Protein, UAD Negative (Negative); Urine Specific Gravity 1.011 (1.001-1.035); Urine Squamous Epithelial Cell None Seen /hpf (<5); Urine Urobilinogen 2 mg/dL (Negative); Urine WBC < 1 /HPF (0-3); Urine pH 6.5 (5.0-9.0)
[2024-09-05] VITALS (9 sets, daily range): BP systolic 123–128; BP diastolic 78–93; PULSE 111–118; RESP 20–35; TEMP 97.8–98.2; O2SAT 95–98
--- NOTE | 2024-09-05 02:17 | DVHHP2 ---
LOLLY HERMOSILLO APPLIANCE SALES ASSOCIATE 09/05/24 0217: History of Present Illness Reason for Visit: SOB, BLE edema History of Present Illness 43-year-old male with past medical history of methamphetamine abuse, CHF Present with complaints of shortness of breath and Swelling of both lower extremities. Patient states he overdid it during [employer]. And I have fevers,Chills, chest pain, nausea, vomiting, palpitations. Cardiovascular: CHF Smoke: 1 pack per day ALCOHOL: occassional Drugs: Marijuana, Other (Methamphetamines) Review of Systems Constitutional: No: Fever, Chills, Sweats, Weakness, Malaise, Other Eyes: No: Pain, Vision change, Conjunctivae inflammation, Eyelid inflammation, Other, Redness ENT: No: Ear pain, Ear discharge, Nose pain, Nose discharge, Nose congestion, Mouth pain, Mouth swelling, Throat pain, Throat swelling, Other Respiratory: Shortness of breath, SOB with excertion; No: Cough, Dry, Wheezing, Hemoptysis, Pleuritic Pain, Sputum, Wheezing, Other Cardiovascular: Edema; No: Chest Pain, Palpitations, Orthopnea, Paroxysmal Noc. Dyspnea, Lt Headedness, Other Gastrointestinal: No: Nausea, Vomiting, Abdominal Pain, Diarrhea, Constipation, Melena, Hematochezia, Other Genitourinary: No Dysuria, No Frequency, No Incontinence, No Hematuria, No Retention, No Other Musculoskeletal: No: other, neck pain, shoulder pain, arm pain, back pain, hand pain, leg pain, foot pain Skin: No: Rash, Lesions, Jaundice, Bruising, Other Neurological: No: Weakness, Numbness, Incoordination, Change in speech, Confus ion, Seizures, Other Allergies: Coded Allergies: NO KNOWN ALLERGIES (Unverified , 07/14/24) Medications Current Medications Medications Dose Ordered Sig/Pravin Route Start Time Stop Time Status Last Admin Dose Admin Docusate Sodium 100 mg BIDPRN PRN PO 09/04/24 21:00 Acetaminophen 650 mg Q6HP PRN PO 09/04/24 21:00 Acetaminophen/ Hydrocodone Bitart 1 tab Q6HPRN PRN PO 09/04/24 21:00 Ondansetron HCl 4 mg Q4HP PRN IV 09/04/24 21:00 Nitroglycerin 0.4 mg Q5MINP PRN SL 09/04/24 21:00 Morphine Sulfate 2 mg Q30M PRN IV 09/04/24 21:00 Furosemide 40 mg BIDD IV 09/05/24 06:00 Metoprolol Tartrate 25 mg BID PO 09/04/24 22:00 Rivaroxaban 20 mg QPM PO 09/05/24 18:00 Exam Vital Signs Vital Signs Date Time Temp Pulse Resp B/P (MAP) Pulse Ox O2 Delivery O2 Flow Rate FiO2 09/05/24 00:25 114 22 126/78 (94) 97 09/05/24 00:25 Room Air* 0 21 09/04/24 22:58 98.9 98.9 General Appearance: Alert (Easily distracted. Refusing to make eye contact), Oriented X3, No acute distress HEENT: Atraumatic, PERRLA, EOMI Respiratory: Clear to auscultation, Normal air movement Cardiovascular: Regular rate, Normal S1, Normal S2 Abdominal: Normal bowel sounds, Soft, No tenderness Extremities: No clubbing, No cyanosis, Other (BLE Pitting edema 3+) Skin: No rashes, No breakdown Neuro: Normal speech, Strength at 5/5 X4 ext Psych/Mental Status: Mental status NL, Mood NL Labs/Xrays Labs Test 09/04/24 23:15 09/04/24 15:57 09/04/24 12:56 Range/Units Urine Color Light-yellow Yellow Urine Clarity Clear Clear Urine pH 6.5 5.0-9.0 Urine Specific [place] 1.011 1.001-1.035 Urine Protein Negative Negative Urine Ketones Negative Negative Urine Blood Negative Negative /uL Urine Nitrite Negative Negative Urine Bilirubin Negative Negative Urine Urobilinogen 2 H Negative mg/dL Urine Leukocyte Esterase Negative Negative /uL Urine RBC <1 0 - 3 /hpf Urine Microscopic WBC < 1 0-3 /HPF Urine Squamous Epithelial Cells None seen <5 /hpf Urine Bacteria None seen None Seen /hpf Urine Glucose Normal Normal mg/dL Troponin I High Sensitivity 43 </=54 ng/L White Blood Count 8.7 4.4-10.8 10^3/uL Red Blood Count 4.78 4.5-5.90 10^6/uL Hemoglobin 15.5 13.5-17.5 g/dL Hematocrit 47.1 41.0-53.0 % Mean Corpuscular Volume 98.4 80.0-100.0 fL Mean Corpuscular Hemoglobin 32.4 H 28.0-32.0 pg Mean Corpuscular Hemoglobin Concent 33.0 32.0-36.0 g/dL Red Cell Distribution Width 15.4 H 11.8-14.3 % Platelet Count 172 140-450 10^3/uL Mean Platelet Volume 9.9 6.9-10.8 fL Neutrophils (%) (Auto) 77.3 37.0-80.0 % Lymphocytes (%) (Auto) 14.2 10.0-50.0 % Monocytes (%) (Auto) 7.4 0.0-12.0 % Eosinophils (%) (Auto) 0.6 0.0-7.0 % Basophils (%) (Auto) 0.5 0.0-2.0 % Neutrophils # (Auto) 6.7 1.6-8.6 10 ^3/uL Lymphocytes # (Auto) 1.2 0.4-5.4 10 ^3/uL Monocytes # (Auto) 0.6 0-1.3 10 ^3/uL Eosinophils # (Auto) 0.1 0-0.8 10 ^3/uL Basophils # (Auto) 0 0-0.2 10 ^3/uL Nucleated Red Blood Cells 0.1 % Sodium Level 139 136-145 mmol/L Potassium Level 4.5 3.5-5.1 mmol/L Chloride Level 106 98-107 mmol/L Carbon Dioxide Level 27 20-31 mmol/L Anion Gap 6 5-15 Blood Urea Nitrogen 9 9-23 mg/dL Creatinine 1.20 0.700-1.30 mg/dL Glomerular Filtration Rate Calc 77 >90 mL/min BUN/Creatinine Ratio 7.5 L 10.0-20.0 Serum Glucose 149 H 74-106 mg/dL Calcium Level 10.1 8.7-10.4 mg/dL B-Type Natriuretic Peptide 2226.53 0-100 pg/mL Assessment/Plan Assessment/Plan Acute on chronic CHF exacerbation Plan Admit telemetry Cardiology consult. Echocardiogram. Diurese with lasix. Continue home medication. As needed anti-hypertensive for optimal BP management. UA/UDS pending Gi ppx pepcid / dvt ppx scd Plan discussed with: Patient My Orders Orders - LOLLY HERMOSILLO NP Procedure Category Date Status Time Admit ADMIT 09/04/24 Transmitted 20:56 Code Status CODE 09/04/24 Transmitted 20:56 Vital Signs ZAID 09/04/24 In Process 20:56 Review Orders With ZAID 09/04/24 In Process Adm. 20:56 Bedrest With Bathroom ZAID 09/04/24 In Process Privileg 20:56 Oxygen By Face Mask RT 09/04/24 Transmitted 20:56 Docusate Sodium PHA 09/04/24 In Process Capsule (Colace 21:00 Acetaminophen Tablet PHA 09/04/24 In Process (Tylenol Tablet) 21:00 Notify Of Changes ZAID 09/04/24 In Process From Base 20:56 Advance Directive ZAID 09/04/24 In Process 20:56 Echo 2d Mode Cardiac US 09/04/24 Logged DOP 20:56 Basic Metabolic Panel LAB 09/05/24 Logged 05:00 Basic Metabolic Panel LAB 09/06/24 Verified 05:00 Basic Metabolic Panel LAB 09/07/24 Verified 05:00 Basic Metabolic Panel LAB 09/08/24 Verified 05:00 Complete Blood Count LAB 09/05/24 Logged 05:00 Complete Blood Count LAB 09/06/24 Verified 05:00 Complete Blood Count LAB 09/07/24 Verified 05:00 Complete Blood Count LAB 09/08/24 Verified 05:00 Urine Bacterial KEYA 09/04/24 In Process Culture 20:56 Patient Condition ORDERS 09/04/24 Transmitted 20:56 Allergies ZAID 09/04/24 In Process 20:56 Hydrocodone-Acet PHA 09/04/24 In Process 5/325mg Tab ([place] 21:00 Ondansetron Hcl PHA 09/04/24 In Process (Zofran) 21:00 Sequential ZAID 09/04/24 In Process Compression Device Nitroglycerin PHA 09/04/24 In Process Sublingual (Ntrostat 21:00 Morphine Sulfate PHA 09/04/24 In Process Injection 21:00 Stat Ekg For Chest ZAID 09/04/24 In Process Pain 20:56 Notify Of Changes ZAID 09/04/24 In Process From Base 20:56 Music Coordinator For ZAID 09/04/24 In Process 24 Hours 20:56 Emergency Dysrhythmia ZAID 09/04/24 In Process Protocol 20:56 Rhythm Strips Once ZAID 09/04/24 In Process Every Shift 20:56 Oxygen By Nasal RT 09/04/24 Transmitted Cannula 20:56 Furosemide Injection PHA 09/05/24 In Process (Lasix Injection) 06:00 Metoprolol Tartrate PHA 09/04/24 In Process Tablet (Lopressor Ta 22:00 Rivaroxaban Tablet PHA 09/05/24 In Process (Xarelto Tablet) 18:00 Date of Service: Sep 05, 2024 Billing Provider: JONES TORREZ MD Common Visit Codes: NOT BILLABLE JONES TORREZ MD 09/05/24 1324: Review of Systems Allergies: Coded Allergies: NO KNOWN ALLERGIES (Unverified , 07/14/24) Assessment/Plan Assessment/Plan Patient seen evaluated and admitted by nurse practitioner this morning. Patient seen and evaluated by me this afternoon. I agree with nurse practitioner's evaluation, documentation, assessment and care plan as outlined. Plan discussed with: Patient LOLLY HERMOSILLO [employer]PL[employer] SALES ASSOCIATE Sep 05, 2024 02:17 JONES TORREZ MD Sep 05, 2024 13:24
[2024-09-05 05:33] LABS: Basophils # (auto) 0 10 ^3/uL (0-0.2); Basophils % (auto) 0.6 % (0.0-2.0); Eosinophils # (auto) 0.1 10 ^3/uL (0-0.8); Hematocrit 43.8 % (41.0-53.0); Hemoglobin 14.5 g/dL (13.5-17.5); Lymphocytes # (auto) 1.6 10 ^3/uL (0.4-5.4); Lymphocytes % (auto) 19.8 % (10.0-50.0); Mean Corpuscular Hemoglobin 32.3 pg (28.0-32.0); Mean Corpuscular Hgb Conc. 33.2 g/dL (32.0-36.0); Mean Corpuscular Volume 97.3 fL (80.0-100.0); Monocytes # (auto) 0.7 10 ^3/uL (0-1.3); Monocytes % (auto) 8.8 % (0.0-12.0); Neutrophils # (auto) 5.7 10 ^3/uL (1.6-8.6); Neutrophils % (auto) 69.8 % (37.0-80.0); Platelet Count (auto) 168 10^3/uL (140-450); Red Cell Distribution Width 15.2 % (11.8-14.3); White Blood Cell 8.2 10^3/uL (4.4-10.8)
[2024-09-05 05:39] LABS: Chloride 106 mmol/L (98-107); Potassium 3.9 mmol/L (3.5-5.1); Sodium 140 mmol/L (136-145)
[2024-09-05 05:40] LABS: Anion Gap 8 (5-15); Calcium 9.6 mg/dL (8.7-10.4); Carbon Dioxide 26 mmol/L (20-31)
[2024-09-05 05:45] LABS: BUN/Creatinine Ratio 8.9 (10.0-20.0); Blood Urea Nitrogen 11 mg/dL (9-23)
[2024-09-05 05:54] LABS: Glucose 126 mg/dL (74-106)
[2024-09-05] MEDS: FUROSEMIDE 40 MG/4 ML VIAL IV SCH (06:33)
--- NOTE | 2024-09-05 09:52 | ECG ---
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
[2024-09-05 13:22] LABS: Cannabinoid Screen, Urine Pos (NEGATIVE)
[2024-09-05 13:32] LABS: Amphetamine Screen, Urine Neg (NEGATIVE); Barbiturate Scree,Urine Neg (NEGATIVE); Benzodiazephine Screen, Urine Neg (NEGATIVE); Cocaine Screen, Urine Neg (NEGATIVE); Opiate Scree,Urine Neg (NEGATIVE); Phencyclidine Screen, Urine Neg (NEGATIVE)
[2024-09-05] MEDS: SPIRONOLACTONE 25 MG TAB PO SCH (17:44)
[2024-09-05] MEDS: RIVAROXABAN 20 MG TAB PO SCH (17:44)
[2024-09-05] MEDS: CARVEDILOL 3.125 MG TAB PO SCH (22:30)
[2024-09-06] VITALS (7 sets, daily range): BP systolic 94–123; BP diastolic 64–88; PULSE 98–115; RESP 17–22; TEMP 97.4–99.4; O2SAT 95–98
[2024-09-06 07:10] LABS: Basophils # (auto) 0.1 10 ^3/uL (0-0.2); Basophils % (auto) 0.7 % (0.0-2.0); Eosinophils # (auto) 0.1 10 ^3/uL (0-0.8); Eosinophils % (auto) 1.2 % (0.0-7.0); Hematocrit 45.5 % (41.0-53.0); Hemoglobin 15.2 g/dL (13.5-17.5); Lymphocytes # (auto) 1.5 10 ^3/uL (0.4-5.4); Lymphocytes % (auto) 18.2 % (10.0-50.0); Mean Corpuscular Hemoglobin 32.4 pg (28.0-32.0); Mean Corpuscular Hgb Conc. 33.5 g/dL (32.0-36.0); Mean Corpuscular Volume 96.9 fL (80.0-100.0); Monocytes # (auto) 0.6 10 ^3/uL (0-1.3); Monocytes % (auto) 7.9 % (0.0-12.0); Neutrophils # (auto) 5.9 10 ^3/uL (1.6-8.6); Nucleated Red Blood Cells % 0.1 %; Platelet Count (auto) 168 10^3/uL (140-450); Red Blood Cells 4.69 10^6/uL (4.5-5.90); White Blood Cell 8.2 10^3/uL (4.4-10.8)
[2024-09-06 07:21] LABS: Calcium 9.9 mg/dL (8.7-10.4); Chloride 104 mmol/L (98-107); Sodium 139 mmol/L (136-145)
[2024-09-06 07:22] LABS: Anion Gap 8 (5-15); Carbon Dioxide 27 mmol/L (20-31)
[2024-09-06 07:27] LABS: BUN/Creatinine Ratio 10.9 (10.0-20.0); Blood Urea Nitrogen 15 mg/dL (9-23)
[2024-09-06 07:29] LABS: Glucose 123 mg/dL (74-106)
[2024-09-06] MEDS ORDERED: FURO40TA4 PO (12:42)
[2024-09-06] MEDS ORDERED: POTA-215 PO (12:42)
[2024-09-06] MEDS ORDERED: MET25T PO (12:42)
[2024-09-06] MEDS ORDERED: RIV20T PO (12:42)
--- NOTE | 2024-09-06 12:44 | DVHDS2 ---
Discharge Summary Date of Admission Sep 04, 2024 at 20:56 Date of Discharge: Sep 06, 2024 Labs/Diagnostic Data: Laboratory Results Test 09/06/24 06:34 09/04/24 23:15 09/04/24 15:57 09/04/24 12:56 White Blood Count 8.2 10^3/uL (4.4-10.8) Red Blood Count 4.69 10^6/uL (4.5-5.90) Hemoglobin 15.2 g/dL (13.5-17.5) Hematocrit 45.5 % (41.0-53.0) Mean Corpuscular Volume 96.9 fL (80.0-100.0) Mean Corpuscular Hemoglobin 32.4 pg (28.0-32.0) Mean Corpuscular Hemoglobin Concent 33.5 g/dL (32.0-36.0) Red Cell Distribution Width 15.0 % (11.8-14.3) Platelet Count 168 10^3/uL (140-450) Mean Platelet Volume 10.0 fL (6.9-10.8) Neutrophils (%) (Auto) 72.0 % (37.0-80.0) Lymphocytes (%) (Auto) 18.2 % (10.0-50.0) Monocytes (%) (Auto) 7.9 % (0.0-12.0) Eosinophils (%) (Auto) 1.2 % (0.0-7.0) Basophils (%) (Auto) 0.7 % (0.0-2.0) Neutrophils # (Auto) 5.9 10 ^3/uL (1.6-8.6) Lymphocytes # (Auto) 1.5 10 ^3/uL (0.4-5.4) Monocytes # (Auto) 0.6 10 ^3/uL (0-1.3) Eosinophils # (Auto) 0.1 10 ^3/uL (0-0.8) Basophils # (Auto) 0.1 10 ^3/uL (0-0.2) Nucleated Red Blood Cells 0.1 % Sodium Level 139 mmol/L (136-145) Potassium Level 4.0 mmol/L (3.5-5.1) Chloride Level 104 mmol/L (98-107) Carbon Dioxide Level 27 mmol/L (20-31) Anion Gap 8 (5-15) Blood Urea Nitrogen 15 mg/dL (9-23) Creatinine 1.38 mg/dL (0.700-1.30) Glomerular Filtration Rate Calc 65 mL/min (>90) BUN/Creatinine Ratio 10.9 (10.0-20.0) Serum Glucose 123 mg/dL (74-106) Calcium Level 9.9 mg/dL (8.7-10.4) Urine Color Light-yellow (Yellow) Urine Clarity Clear (Clear) Urine pH 6.5 (5.0-9.0) Urine Specific [place] 1.011 (1.001-1.035) Urine Protein Negative (Negative) Urine Ketones Negative (Negative) Urine Blood Negative /uL (Negative) Urine Nitrite Negative (Negative) Urine Bilirubin Negative (Negative) Urine Urobilinogen 2 mg/dL (Negative) Urine Leukocyte Esterase Negative /uL (Negative) Urine RBC <1 /hpf (0 - 3) Urine Microscopic WBC < 1 /HPF (0-3) Urine Squamous Epithelial Cells None seen /hpf (<5) Urine Bacteria None seen /hpf (None Seen) Urine Glucose Normal mg/dL (Normal) Urine Opiates Screen Neg (NEGATIVE) Urine Fentanyl Screen Neg (NEGATIVE) Urine Barbiturates Screen Neg (NEGATIVE) Urine Phencyclidine Screen Neg (NEGATIVE) Urine Amphetamines Screen Neg (NEGATIVE) Urine Benzodiazepines Screen Neg (NEGATIVE) Urine Cocaine Screen Neg (NEGATIVE) Urine Cannabinoids Screen Pos (NEGATIVE) Troponin I High Sensitivity 43 ng/L (</=54) B-Type Natriuretic Peptide 2226.53 pg/mL (0-100) Other Laboratory Tests 09/06/24 06:34 Final Diagnosis/Problems List Acute on chronic congestive heart failure with biventricular dysfunction, congestive cardiomyopathy ejection fraction 10% Discharge Disposition: Home Discharge Instruct/Medications Diet: Consistent carbohydrate, Cardiac 2g Na,low cholest Diet comment: To limit your oral fluid intake to 1200 mL per 24 hours due to your heart failure. Activity: No Restrictions, As Tolerated Follow Up/Referral: Primary care physician next week and referral to table attendant Dr. Rowe for heart failure management Medications: Increase your furosemide to 40 mg twice a day. Continue other home medications as prescribed per discharge medication list. Discharge Statement: "Patient was advised to return to the ER or call 911 if any headaches, dizziness, shortness of breath, chest pain, abdominal pain, bleeding, fevers, or worsening of medical condition. Patient was counseled about treatment plan, medications, possible side effects, patientverbalized understanding. All questions were answered to the best of my ability. This discharge took greater then 30 minutes in planning, reviewing documentation, counseling the patient, and discussing with other team members." ASSESSMENT ASSESSMENT Assessment Acute on chronic congestive heart failure with biventricular dysfunction, congestive cardiomyopathy ejection fraction 10% JONES TORREZ MD Sep 06, 2024 12:43
--- NOTE | 2024-09-07 00:11 | DVHINCON2 ---
DATE OF CONSULTATION: 09/05/2024 REFERRING PHYSICIAN: . CONSULTING PHYSICIAN: Dr. Rowe. INDICATION: Shortness of breath. HISTORY OF PRESENT ILLNESS: The patient is a 43-year-old male with history of dilated cardiomyopathy secondary to illicit drug use, history of congestive heart failure, presented to the hospital with complaints of lower extremity swelling and shortness of breath. The patient has not been compliant with his medication. Currently on IV Lasix with improvement in his symptoms. PAST MEDICAL HISTORY: * Hypertension. * Dilated cardiomyopathy secondary to illicit drug use. * CHF, systolic heart failure. * Illicit drug use with methamphetamine. MEDICATIONS: Per med rec. ALLERGIES: No known drug allergies. PHYSICAL EXAMINATION: GENERAL: Alert and awake, in no form of cardiopulmonary distress. VITAL SIGNS: Blood pressure 100/76, pulse 98 per minute, saturation 95%. HEENT: No carotid bruits. No jugular venous distention. CHEST: Bilateral air entry. CARDIOVASCULAR: Precordial and carotid pulses palpable. Normal S1 and S2. EXTREMITIES: Bilateral edema. DIAGNOSTIC DATA: Sodium 139, potassium 4.8, creatinine is 1.3. Troponin negative x 3. BNP elevated at 2226. CBC is normal. ASSESSMENT: * Acute on chronic systolic heart failure. * Illicit drug use. * Dilated cardiomyopathy secondary to above. * Noncompliance to medication. * Chronic kidney disease. RECOMMENDATIONS: * Agree with diuresis. * Continue IV Lasix. * Advised the patient to refrain from using illicit drug use. * Advised the patient to comply with his home medication. * The patient had a recent echo, which shows severe LV systolic dysfunction with an ejection fraction of 10%, no indication for repeat echo at this point. * Once well diuresed, the patient may be discharged home with outpatient followup. Thank you for allowing me to participate in the care of this patient. MD NURY Brown/BLAIRE/SANYA TID: [id number] RECEIPT: [id number]
== END 2024-09-06 18:40 | disposition home or self-care (01) | DRG 194 ==
LOC: ER 11:18 → OVERFLOW 20:56 → TELE-WESTW 09-05 21:54
PROVIDERS: ADMIT Nurse Practitioner Family; ATTEND Nurse Practitioner Family
DX: I13.0 Hypertensive heart and chronic kidney disease with heart failure and stage 1 through stage 4 chronic kidney disease, or unspecified chronic kidney disease (principal); I42.0 Dilated cardiomyopathy; I50.43 Acute on chronic combined systolic (congestive) and diastolic (congestive) heart failure; F19.90 Other psychoactive substance use, unspecified, uncomplicated; F17.210 Nicotine dependence, cigarettes, uncomplicated; N18.9 Chronic kidney disease, unspecified; Z91.148 Patient's other noncompliance with medication regimen for other reason; Z79.899 Other long term (current) drug therapy
CPT/HCPCS: 36415; 71046; 80048; 80307; 81001; 83880; 84484; 85025; 87086; 93005; 96374; 99291; G0378

== ENCOUNTER 2025-01-18 10:37 | Inpatient (IN) | payer MEDICAID ==
[~2025-01-18] VITALS: Ht 175.3 cm; Wt 94.8 kg
--- NOTE | 2025-01-18 10:46 | ED.PDOC ---
Musculoskeletal HPI Comments NORTH: HPI: Dev Historian. Past Medical History: Methamphetamine abuse, CHF, patient is on Lasix 40 mg Past Surgical History: 44y M who presents to the ED for chief complaint of lower extremity pain. - pt states he has been having bilateral lower extremity swelling for the past 1x week - pt states he has history of CHF and states he has been complaint with his Lasix despite his symptoms - pt states he started to now have associated shortness of breath and came to the ED for evaluation - pt in the ED in no noted respiratory distress with the following vitals: rr: 19, 02 sat 98% on room air, BP:133/88, and heart rate: 102 - pt otherwise denies any other symptoms at this time - pt has noted history of tobacco use , marijuana and methamphetamine use - pt states he last used METH 1xweek prior - pt otherwise denies any other symptoms at this time - pt was hospitalized and discharged in Aug 2024 with the following discharge summary: 43-year-old male with past medical history of methamphetamine abuse, CHF Present with complaints of shortness of breath and Swelling of both lower extremities. Patient states he overdid it during Tuesday. And I have fevers,Chills, chest pain, nausea, vomiting, palpitations. He is admitted and once again counseled and educated regarding his methamphetamine misuse and associated end-stage cardiomyopathy and heart failure with the ejection fraction about 10%. Patient is advised to be compliant with his cardiac medications and diuretics especially Lasix. Advised to be compliant with oral fluid restriction and checking his weights daily to prevent exacerbation of heart failure. Otherwise overall patient is clinically stable and feeling better therefore it is felt he could be safely discharged home. However given his end-stage cardiomyopathy he was told that he is at risk for juan dden cardiac arrhythmia and sudden and if he has any new recurrent or worsening symptoms to call 911 or visit nearest ER. Patient verbalized understanding his hospital diagnosis, treatment he received, discharge medications, discharge instructions and agreed with follow-up plan of care as mentioned. - pt states he has history of blood clots and her prior notes, pt is currently on xarelto Past Medical history: hyperlipidemia, CHF, DVT Past surgical history: denies allergies: denies medications: Lasix, 40 mg, xarelto, social history: endorses tobacco use, denies ETOH use, endorses drug use (marijuana and methamphetamines) REVIEW OF SYSTEMS: CONSTITUTIONAL: Denies acute: fever, diaphoresis, chills, HEAD: Denies acute: headache, photophobia Eyes: Denies acute: Double vision, vision loss, eye pain, eye discharge. EARS: Denies acute: tinnitus, hearing loss, ear discharge, ear pain, THROAT: Denies acute: sore throat, swelling, difficulty swallowing , pain with swallowin g, change in voice. NECK: Denies acute: neck pain, neck swelling, stiff neck. HEART: Denies acute : chest pain, palpitations, LUNGS: Denies acute: , wheezing, cough, hemoptysis ABDOMEN: Denies acute: abdominal pain, Nausea, Vomiting, diarrhea, melena , hematemesis, hematochezia SKIN: Denies acute: rash, redness, lesions, itchiness. EXTREMITIES: Denies acute: calf pain, numbness, tingling, weakness, denies pain in extremity. Denies acute: Low back pain. Neuro: Denies acute: focal neurological deficit, motor or sensory focal neurological deficit, tremors, seizure like activity, confusion, dizziness, change in mental status, loss of bowel or bladder function, cauda equina like symptoms. : Denies acute: dysuria, hematuria, flank pain, increase in urinary frequency. PSYCH: Denies acute: hallucination, suicidal ideation, homicidal ideation. PHYSICAL EXAM: General: ----mild---acute distress, awake and alert. Head: normocephalic, atraumatic. Neck: supple, trachea is midline, no swelling. Throat: Normal phonation. Eyes:, no erythema, no purulent discharge, no proptosis, no icterus. Heart: regular tachycardia, no significant murmur appreciated. Lungs: no apparent respiratory distress, Able to speak in full sentences. No wheezing, no rhonchi, no crackles. No stridors Clear to auscultation bilaterally. Abdomen: non tender to palpation, non distended, soft, no guarding, no rebound, + bowel sounds. Neuro: Awake, Alert, oriented to name, self, situation, follows commands GCS=15. Speech is normal. Skin: no petechia, no purpura, no cyanosis, non-pale, not jaundice. Lower extremities: --2/4 b/l - Pitting edema no deformity, no focal swelling, no calf TTP. Makes eye contact. moves all four extremities. Face: no apparent facial droop. Ambulating in the ED independently. Pedal pulses are palpable. Patient is neurovascularly intact in bilateral lower extremities. ED COURSE: DISCLAIMER: This medical document was created using an electronic medical record system with voice recognition software and computerized dictation system. Although this document has been carefully reviewed, there might still be some phonetic and typographical errors. Occasional wrong-word or "sound-alike" substitutions may have occurred due to the inherent limitations of voice recognition software. These areas are purely typographical due to imperfections of the software programs and do not reflect any compromise in the patient's medical care. Please read the chart carefully and recognize, using context, where these substitutions have occurred. Chief Complaint: Lower Extremity Time Seen by MD: 10:39 Reviewed Notes: Nurses Notes, Allergies Allergies: Coded Allergies: NO KNOWN ALLERGIES (Unverified , 07/14/24) Home Meds Active Scripts Potassium Chloride (Klor-Con M10) 10 Meq Tab, 1 TAB PO DAILY, #30 TAB Prov:JONES TORREZ MD 09/06/24 Metoprolol Tartrate (Lopressor) 25 Mg Tb, 25 MG PO BID, #60 TAB Prov:JONES TORREZ MD 09/06/24 Furosemide (Furosemide) 40 Mg Tab, 1 TAB PO BID, #60 TAB Prov:JONES TORREZ MD 09/06/24 Rivaroxaban (Xarelto Tablet) 20 Mg Tb, 1 TAB PO DAILY for 60 Days, #60 TAB Prov:JONES TORREZ MD 09/06/24 Information Source: Patient Mode of Arrival: Ambulatory Location: Bilateral Past Medical History PAST MEDICAL HISTORY: CHF, High Lipids Surgical History: Denies all surgeries Family History Family History: No family hx of Cancer, No family hx of DM, No family hx of Heart mike Social History Smoker: Cigarettes Alcohol: Occasionally Drugs: Marijuana, Methamphetamine Lives In: Home Was a procedure done? Was a procedure done?: No X-Ray, Labs, Meds, VS Vital Signs Date Time Temp Pulse Resp B/P (MAP) Pulse Ox O2 Delivery O2 Flow Rate FiO2 01/18/25 12:30 87 20 94 Room Air* 0 21 01/18/25 12:25 137/93 01/18/25 10:50 116 01/18/25 10:41 97.9 102 19 133/88 (103) 98 97.9 Lab Test 01/18/25 12:51 01/18/25 11:50 01/18/25 10:53 Range/Units Urine Color Light-yellow Yellow Urine Clarity Clear Clear Urine pH 7.0 5.0-9.0 Urine Specific [place] 1.005 1.001-1.035 Urine Protein Negative Negative Urine Ketones Negative Negative Urine Blood Negative Negative /uL Urine Nitrite Negative Negative Urine Bilirubin Negative Negative Urine Urobilinogen Normal Negative mg/dL Urine Leukocyte Esterase Negative Negative /uL Urine RBC 1 0 - 3 /hpf Urine Microscopic WBC < 1 0-3 /HPF Urine Squamous Epithelial Cells None seen <5 /hpf Urine Bacteria Few H None Seen /hpf Urine Hyaline Casts Mod 0 - 2 /lpf Urine Glucose Normal Normal mg/dL Urine Opiates Screen Neg NEGATIVE Urine Fentanyl Screen Neg NEGATIVE Urine Barbiturates Screen Neg NEGATIVE Urine Phencyclidine Screen Neg NEGATIVE Urine Amphetamines Screen Neg NEGATIVE Urine Benzodiazepines Screen Neg NEGATIVE Urine Cocaine Screen Neg NEGATIVE Urine Cannabinoids Screen Neg NEGATIVE Prothrombin Time 15.0 H 9.3-11.8 sec Prothrombin Time INR 1.47 H 0.9-1.15 Activated Partial Thromboplast Time 31.2 24.5-34.5 SEC Troponin I High Sensitivity 96 *H 106 *H </=54 ng/L White Blood Count 6.7 4.4-10.8 10^3/uL Red Blood Count 4.78 4.5-5.90 10^6/uL Hemoglobin 15.7 13.5-17.5 g/dL Hematocrit 46.9 41.0-53.0 % Mean Corpuscular Volume 98.0 80.0-100.0 fL Mean Corpuscular Hemoglobin 32.7 H 28.0-32.0 pg Mean Corpuscular Hemoglobin Concent 33.4 32.0-36.0 g/dL Red Cell Distribution Width 15.0 H 11.8-14.3 % Platelet Count 184 140-450 10^3/uL Mean Platelet Volume 10.0 6.9-10.8 fL Neutrophils (%) (Auto) 63.3 37.0-80.0 % Lymphocytes (%) (Auto) 25.5 10.0-50.0 % Monocytes (%) (Auto) 8.7 0.0-12.0 % Eosinophils (%) (Auto) 1.6 0.0-7.0 % Basophils (%) (Auto) 0.9 0.0-2.0 % Neutrophils # (Auto) 4.2 1.6-8.6 10 ^3/uL Lymphocytes # (Auto) 1.7 0.4-5.4 10 ^3/uL Monocytes # (Auto) 0.6 0-1.3 10 ^3/uL Eosinophils # (Auto) 0.1 0-0.8 10 ^3/uL Basophils # (Auto) 0.1 0-0.2 10 ^3/uL Nucleated Red Blood Cells 0.1 % Sodium Level 142 136-145 mmol/L Potassium Level 4.2 3.5-5.1 mmol/L Chloride Level 108 H 98-107 mmol/L Carbon Dioxide Level 24 20-31 mmol/L Anion Gap 10 5-15 Blood Urea Nitrogen 12 9-23 mg/dL Creatinine 1.51 H 0.700-1.30 mg/dL Glomerular Filtration Rate Calc 58 >90 mL/min BUN/Creatinine Ratio 7.9 L 10.0-20.0 Serum Glucose 162 H 74-106 mg/dL Hemoglobin A1c 6.4 H <5.7 % A1C Calcium Level 9.6 8.7-10.4 mg/dL Total Bilirubin 0.7 0.2-1.0 mg/dL Aspartate Amino Transferase (AST) 32 <34 U/L Alanine Aminotransferase (ALT) 34 7-40 U/L Alkaline Phosphatase 74 46-116 U/L B-Type Natriuretic Peptide 1044.24 0-100 pg/mL Total Protein 6.4 5.7-8.2 g/dL Albumin 4.0 3.2-4.8 g/dL Triglycerides Level 100 < 150 mg/dL Cholesterol Level 163 < 200 mg/dL LDL Cholesterol 128 H < 100 mg/dL HDL Cholesterol 31 L 40-59 mg/dL Thyroid Stimulating Hormone (TSH) 2.55 0.55-4.78 uIU/mL Current Medications Medications (Trade) Dose Ordered Sig/Pravin Route Start Time Stop Time Status Last Admin Furosemide (Lasix Injection) 80 mg ONCE ONCE IV 01/18/25 10:45 01/18/25 10:46 DC 01/18/25 12:25 Aspirin (Ecotrin Enteric Coated Tablet) 325 mg ONCE ONCE PO 01/18/25 11:45 01/18/25 11:46 DC 01/18/25 12:[address] [address] Ph: [phone] DIAGNOSTIC IMAGING Diagnostic Imaging Report : [id number] Signed PATIENT: AMBER STRANGE ACCT: [id number] UNIT: [id number] : 1980 LOC: ER ROOM / BED: / AGE / SEX: 44 / M ADM STATUS: REG ER SERVICE 1042 ORDERING PHYSICIAN: EDU BRICEÑO DO PROCEDURE(s): BLDVT - BiLat Lower DVT REASON: sob/leg swelling chf exacerbation ORDER NUMBER(s): [id number], ACCESSION NUMBER(s): [id number] Bilateral lower extremity venous duplex Clinical History: sob/leg swelling chf exacerbation Comparison: US BILAT LOWER DVT on DOS: 07/14/24 Technique: Duplex Doppler evaluation of the deep venous systems of both lower extremities from the common femoral veins to the popliteal veins including color Doppler and spectral/pulsed waveform analysis was performed. Findings: RIGHT SIDE: The common femoral vein demonstrates appropriate compressibility and waveform variability. There is compressibility/patency of the great saphenous vein at the proximal thigh. Right mid and distal superficial femoral vein is incompletely compressible. The deep femoral vein demonstrates appropriate compressibility and waveform variability. The popliteal vein demonstrates appropriate compressibility and waveform variability. There is normal compressibility at the tibioperoneal trunk. LEFT SIDE: The common femoral vein demonstrates appropriate compressibility and waveform variability. There is compressibility/patency of the great saphenous vein at the proximal thigh. Left mid and distal superficial femoral vein is incompletely compressible. The deep femoral vein demonstrates appropriate compressibility and waveform variability. The popliteal vein demonstrates appropriate compressibility and waveform variability. There is normal compressibility at the tibioperoneal trunk. Impression: Nonocclusive thrombus in the bilateral mid and distal superficial femoral veins. ATED BY: ALEX KING MD DICTATED DATE/TIME: 01/18/25 1217 SIGNED BY: ALEX KING MD SIGNED DATE/TIME: 01/18/257 CC: [place] [id number] Ph: [phone] DIAGNOSTIC IMAGING Diagnostic Imaging Report : [id number] Signed PATIENT: AMBER STRANGE EARLACCT: [id number] UNIT: [id number] : 1980 LOC: ER ROOM / BED: / AGE / SEX: 44 / M ADM STATUS: REG ER SERVICE 1042 ORDERING PHYSICIAN: EDU BRICEÑO DO PROCEDURE(s): CXRP - CHEST PORTABLE REASON: sob/leg swelling chf exacerbation ORDER NUMBER(s): [id number], ACCESSION NUMBER(s): [id number] EXAM: XY CHEST PORTABLE Indication: sob/leg swelling chf exacerbation Technique: Single frontal view of the chest was obtained Comparison: None FINDINGS: Lines and Tubes: None Lungs: No focal consolidation. Pulmonary vascular congestion Pleura: No effusion. No pneumothorax. Cardiomediastinal contours: Cardiomegaly. Bones: No acute osseous abnormality. IMPRESSION: Cardiomegaly with pulmonary vascular congestion. ATED BY: ALEX KING MD DICTATED DATE/TIME: 01/18/25 1144 SIGNED BY: ALEX KING MD SIGNED DATE/TIME: 01/18/25 1144 CC: Patient Education/Counseling: Diagnosis, Treatment Family Education/Counseling: No Family Present Departure 1 Departure Time of Disposition: 11:36 Impression: Primary Impression: CHF exacerbation Additional Impressions: Acute on chronic diastolic CHF (congestive heart failure) Methamphetamine abuse Elevated troponin Disposition: ADMITTED INPATIENT Admit to: Tele Condition: Guarded Discharged With: Self Critical Care Note Critical Care Time?: No Heart Score Heart Score: Heart Score Response (Comments) Value History Slightly Suspicious 0 Age <45 0 Risk Factors 1 or 2 risk factors 1 Total 1 I personally scribed for EDU BRICEÑO DO ([email or web address]) on 01/18/25 at 10:46. Electronically submitted by Mane Tomlin ([facility]). I personally scribed for EDU BRICEÑO DO ([facility]) on 01/18/25 at 11:29. Electronically submitted by Mane Tomlin ([facility]). I personally scribed for EDU BRICEÑO DO ([facility]) on 01/18/25 at 11:59. Electronically [facility] by Mane Tomlin ([facility] I personally scribed for EDU BRICEÑO DO ([facility]) on 01/18/25 at 21:28. Electronically submitted by Mane Tomlin ([facility]). EDU BRICEÑO DO Jan 18, 2025 10:46
--- NOTE | 2025-01-18 10:51 | ECG ---
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
[2025-01-18 11:10] LABS: Basophils # (auto) 0.1 10 ^3/uL (0-0.2); Basophils % (auto) 0.9 % (0.0-2.0); Eosinophils # (auto) 0.1 10 ^3/uL (0-0.8); Eosinophils % (auto) 1.6 % (0.0-7.0); Hematocrit 46.9 % (41.0-53.0); Hemoglobin 15.7 g/dL (13.5-17.5); Lymphocytes # (auto) 1.7 10 ^3/uL (0.4-5.4); Lymphocytes % (auto) 25.5 % (10.0-50.0); Mean Corpuscular Hemoglobin 32.7 pg (28.0-32.0); Mean Corpuscular Hgb Conc. 33.4 g/dL (32.0-36.0); Monocytes # (auto) 0.6 10 ^3/uL (0-1.3); Monocytes % (auto) 8.7 % (0.0-12.0); Neutrophils # (auto) 4.2 10 ^3/uL (1.6-8.6); Neutrophils % (auto) 63.3 % (37.0-80.0); Nucleated Red Blood Cells % 0.1 %; Platelet Count (auto) 184 10^3/uL (140-450); Red Blood Cells 4.78 10^6/uL (4.5-5.90); White Blood Cell 6.7 10^3/uL (4.4-10.8)
[2025-01-18 11:28] LABS: Alanine Aminotransferase 34 U/L (7-40); Alkaline Phosphatase 74 U/L (46-116); Anion Gap 10 (5-15); Aspartate Aminotransferase 32 U/L (<34); BUN/Creatinine Ratio 7.9 (10.0-20.0); Bilirubin, Total 0.7 mg/dL (0.2-1.0); Blood Urea Nitrogen 12 mg/dL (9-23); Calcium 9.6 mg/dL (8.7-10.4); Carbon Dioxide 24 mmol/L (20-31); Potassium 4.2 mmol/L (3.5-5.1); Sodium 142 mmol/L (136-145); Total Protein 6.4 g/dL (5.7-8.2)
[2025-01-18 11:32] LABS: Chloride 108 mmol/L (98-107); Glucose 162 mg/dL (74-106)
--- NOTE | 2025-01-18 11:47 | DVH ---
EXAM: XY CHEST PORTABLE Indication: sob/leg swelling chf exacerbation Technique: Single frontal view of the chest was obtained Comparison: None FINDINGS: Lines and Tubes: None Lungs: No focal consolidation. Pulmonary vascular congestion Pleura: No effusion. No pneumothorax. Cardiomediastinal contours: Cardiomegaly. Bones: No acute osseous abnormality. IMPRESSION: Cardiomegaly with pulmonary vascular congestion.
[2025-01-18 12:14] LABS: INR 1.47 (0.9-1.15); Partial Thromboplastin Time 31.2 SEC (24.5-34.5)
--- NOTE | 2025-01-18 12:19 | DVH ---
Bilateral lower extremity venous duplex Clinical History: sob/leg swelling chf exacerbation Comparison: US BILAT LOWER DVT on DOS: 07/14/24 Technique: Duplex Doppler evaluation of the deep venous systems of both lower extremities from the common femora l veins to the popliteal veins including color Doppler and spectral/pulsed waveform analysis was perf ormed. Findings: RIGHT SIDE: The common femoral vein demonstrates appropriate compressibility and waveform variability. There is compressibility/patency of the great saphenous vein at the proximal thigh. Right mid and distal superficial femoral vein is incompletely compressible. The deep femoral vein demonstrates appropriate compressibility and waveform variability. The popliteal vein demonstrates appropriate compressibility and waveform variability. There is normal compressibility at the tibioperoneal trunk. LEFT SIDE: The common femoral vein demonstrates appropriate compressibility and waveform variability. There is compressibility/patency of the great saphenous vein at the proximal thigh. Left mid and distal superficial femoral vein is incompletely compressible. The deep femoral vein demonstrates appropriate compressibility and waveform variability. The popliteal vein demonstrates appropriate compressibility and waveform variability. There is normal compressibility at the tibioperoneal trunk. Impression: Nonocclusive thrombus in the bilateral mid and distal superficial femoral veins.
[2025-01-18] MEDS: ASPirin-EC 325mg tab PO ONE (12:25)
[2025-01-18] MEDS: FUROSEMIDE 100 MG/10ML VIAL IV ONE (12:25)
[2025-01-18 12:30] VITALS: PULSE 87; RESP 20; O2SAT 94
[2025-01-18] MEDS ORDERED: NITROGLYCERIN 0.4 MG SL TAB SL PRN (13:45)
[2025-01-18] MEDS ORDERED: DEXTROSE (50%) 50ML SYRG IV PRN (13:45)
[2025-01-18] MEDS ORDERED: MORPHINE SULFATE INJ 2 MG/ml SYRG IV PRN ×2 (13:45)
[2025-01-18] MEDS ORDERED: HYDROcodone-ACET 5/325MG TAB PO PRN (13:45)
[2025-01-18] MEDS ORDERED: ONDANSETRON HCL 4 MG/2 ML VIAL IV PRN (13:45)
[2025-01-18 13:59] LABS: Urine Bacteria FEW /hpf (None Seen); Urine Blood Negative /uL (Negative); Urine Clarity Clear (Clear); Urine Color Light-Yellow (Yellow); Urine Hyaline Cast MOD /lpf (0 - 2); Urine Protein, UAD Negative (Negative); Urine Specific Gravity 1.005 (1.001-1.035); Urine Squamous Epithelial Cell None Seen /hpf (<5); Urine Urobilinogen Normal (Negative); Urine WBC < 1 /HPF (0-3)
--- NOTE | 2025-01-18 13:59 | DVHHP2 ---
History of Present Illness Reason for Visit: SOB with bilateral lower extremity edema History of Present Illness Jw Cifuentes is a 44-year-old male with past medical history of CHF and left lower extremity DVT who presents to the ED with bilateral lower extremity swelling x1 week and shortness of breath x3 days. Patient reports that he is compliant with his medications. He denies any recent trauma or injury, recent sick contacts, recent ingestion of spoiled food, recent travels, fever, chills, lightheadedness, weakness, dizziness, abdominal pain, nausea, vomiting, diarrhea , chest pain, or urinary symptoms. Cardiovascular: CHF Past Medical History Left lower extremity DVT Past Surgical History: None Family History: None Smoke: 1 pack per day ALCOHOL: occassional Drugs: Marijuana, Other (Methamphetamine) Lives: with Family Domestic Violence: Neg Review of Systems Respiratory: Shortness of breath Cardiovascular: Edema Allergies: Coded Allergies: NO KNOWN ALLERGIES (Unverified , 07/14/24) Medications Current Medications Medications Dose Ordered Sig/Pravin Route Start Time Stop Time Status Last Admin Dose Admin Diagnostic Test (Pha) 1 strip ACHS 01/18/25 17:00 Insulin Human Regular ACHS SC 01/18/25 17:00 Dextrose 50 ml UD PRN IV 01/18/25 13:45 Acetaminophen/ Hydrocodone Bitart 1 tab Q4HP PRN PO 01/18/25 13:45 Ondansetron HCl 4 mg Q4HP PRN IV 01/18/25 13:45 Acetaminophen 650 mg Q6HP PRN PO 01/18/25 13:45 Morphine Sulfate 2 mg Q4HPRN PRN IV 01/18/25 13:45 Nitroglycerin 0.4 mg Q5MINP PRN SL 01/18/25 13:45 Morphine Sulfate 2 mg Q30M PRN IV 01/18/25 13:45 Exam Vital Signs Vital Signs Date Time Temp Pulse Resp B/P (MAP) Pulse Ox O2 Delivery O2 Flow Rate FiO2 01/18/25 12:30 87 20 94 Room Air* 0 21 01/18/25 12:25 137/93 01/18/25 10:41 97.9 97.9 General Appearance: Alert, Oriented X3, Cooperative, mild distress HEENT: Atraumatic, PERRLA, EOMI Respiratory: Normal air movement Cardiovascular: Normal S1, Normal S2 Abdominal: Normal bowel sounds, Soft Neuro: Normal gait, Normal speech, Strength at 5/5 X4 ext, Normal tone, Sensation intact Psych/Mental Status: Mental status NL, Mood NL Labs/Xrays Labs Test 01/18/25 11:50 01/18/25 10:53 Range/Units Prothrombin Time 15.0 H 9.3-11.8 sec Prothrombin Time INR 1.47 H 0.9-1.15 Activated Partial Thromboplast Time 31.2 24.5-34.5 SEC Troponin I High Sensitivity 96 *H </=54 ng/L White Blood Count 6.7 4.4-10.8 10^3/uL Red Blood Count 4.78 4.5-5.90 10^6/uL Hemoglobin 15.7 13.5-17.5 g/dL Hematocrit 46.9 41.0-53.0 % Mean Corpuscular Volume 98.0 80.0-100.0 fL Mean Corpuscular Hemoglobin 32.7 H 28.0-32.0 pg Mean Corpuscular Hemoglobin Concent 33.4 32.0-36.0 g/dL Red Cell Distribution Width 15.0 H 11.8-14.3 % Platelet Count 184 140-450 10^3/uL Mean Platelet Volume 10.0 6.9-10.8 fL Neutrophils (%) (Auto) 63.3 37.0-80.0 % Lymphocytes (%) (Auto) 25.5 10.0-50.0 % Monocytes (%) (Auto) 8.7 0.0-12.0 % Eosinophils (%) (Auto) 1.6 0.0-7.0 % Basophils (%) (Auto) 0.9 0.0-2.0 % Neutrophils # (Auto) 4.2 1.6-8.6 10 ^3/uL Lymphocytes # (Auto) 1.7 0.4-5.4 10 ^3/uL Monocytes # (Auto) 0.6 0-1.3 10 ^3/uL Eosinophils # (Auto) 0.1 0-0.8 10 ^3/uL Basophils # (Auto) 0.1 0-0.2 10 ^3/uL Nucleated Red Blood Cells 0.1 % Sodium Level 142 136-145 mmol/L Potassium Level 4.2 3.5-5.1 mmol/L Chloride Level 108 H 98-107 mmol/L Carbon Dioxide Level 24 20-31 mmol/L Anion Gap 10 5-15 Blood Urea Nitrogen 12 9-23 mg/dL Creatinine 1.51 H 0.700-1.30 mg/dL Glomerular Filtration Rate Calc 58 >90 mL/min BUN/Creatinine Ratio 7.9 L 10.0-20.0 Serum Glucose 162 H 74-106 mg/dL Calcium Level 9.6 8.7-10.4 mg/dL Total Bilirubin 0.7 0.2-1.0 mg/dL Aspartate Amino Transferase (AST) 32 <34 U/L Alanine Aminotransferase (ALT) 34 7-40 U/L Alkaline Phosphatase 74 46-116 U/L B-Type Natriuretic Peptide 1044.24 0-100 pg/mL Total Protein 6.4 5.7-8.2 g/dL Albumin 4.0 3.2-4.8 g/dL Bilateral lower extremity venous duplex Clinical History: sob/leg swelling chf exacerbation Comparison: US BILAT LOWER DVT on DOS: 07/14/24 Technique: Duplex Doppler evaluation of the deep venous systems of both lower extremities from the common femoral veins to the popliteal veins including color Doppler and spectral/pulsed waveform analysis was performed. Findings: RIGHT SIDE: The common femoral vein demonstrates appropriate compressibility and waveform variability. There is compressibility/patency of the great saphenous vein at the proximal thigh. Right mid and distal superficial femoral vein is incompletely compressible. The deep femoral vein demonstrates appropriate compressibility and waveform variability. The popliteal vein demonstrates appropriate compressibility and waveform variability. There is normal compressibility at the tibioperoneal trunk. LEFT SIDE: The common femoral vein demonstrates appropriate compressibility and waveform variability. There is compressibility/patency of the great saphenous vein at the proximal thigh. Left mid and distal superficial femoral vein is incompletely compressible. The deep femoral vein demonstrates appropriate compressibility and waveform variability. The popliteal vein demonstrates appropriate compressibility and waveform variability. There is normal compressibility at the tibioperoneal trunk. Impression: Nonocclusive thrombus in the bilateral mid and distal superficial femoral veins. EXAM: XY CHEST PORTABLE Indication: sob/leg swelling chf exacerbation Technique: Single frontal view of the chest was obtained Comparison: None FINDINGS: Lines and Tubes: None Lungs: No focal consolidation. Pulmonary vascular congestion Pleura: No effusion. No pneumothorax. Cardiomediastinal contours: Cardiomegaly. Bones: No acute osseous abnormality. IMPRESSION: Cardiomegaly with pulmonary vascular congestion. Assessment/Plan Assessment/Plan Assessment Acute on chronic CHF exacerbation HFrEF, 10% Left lower extremity DVT on Xarelto ORLY Hyperglycemia Obesity Cardiomegaly Elevated troponins likely due to demand ischemia Tobacco use Alcohol Methamphetamine and marijuana use Plan Admit to tele Aspirin given in ED Diuretics PT INR PT/PTT Troponin Bilateral lower extremity venous ultrasound EKG Chest x-ray BNP level Hemoglobin A1c ISS and Accu-Cheks UA UDS Echo ordered Last echo on 07/15/2024 EF 10% TSH Lipid panel Strict I&Os Daily weight Diet Home medications reconciled DVT prophylaxis-patient on Xarelto PUD prophylaxis-not indicated no history of GERD or GI bleed Discussed plan of care with patient and nurse Cardiology consult Counseled patient on cessation of alcohol, tobacco, and polysubstance abuse Plan discussed with: Patient My Orders Orders - GATITO SOLOMON CREATIVE CONSULTANT Procedure Category Date Status Time Hemoglobin A1c LAB 01/18/25 In Process 13:34 Glucose Blood PHA 01/18/25 In Process (Accu-Chek Comfort 17:00 Insulin R (Human) PHA 01/18/25 In Process (Insulin R) 17:00 Dextrose 50% Syringe PHA 01/18/25 In Process 13:45 Echo 2d Mode Cardiac US 01/18/25 Logged DOP 13:34 * Cardiology Consult CONS 01/18/25 Transmitted 13:34 Urinalysis LAB 01/18/25 Logged 13:34 Drug Screen LAB 01/18/25 Logged 13:34 Thyroid Stimulating LAB 01/18/25 In Process Hormone 13:34 Lipid Panel LAB 01/18/25 In Process 13:34 Admit ADMIT 01/18/25 Transmitted 13:34 Allergies ZAID 01/18/25 In Process 13:34 Hydrocodone-Acet PHA 01/18/25 In Process 5/325mg Tab ([place] 13:45 Ondansetron Hcl PHA 01/18/25 In Process (Zofran) 13:45 Complete Blood Count LAB 01/19/25 Verified 04:00 Comprehensive LAB 01/19/25 Verified Metabolic Panel 04:00 Cardiac DIET 01/18/25 Transmitted Diet-2gna,Lofat,Lochol Dinner Acetaminophen Tablet PHA 01/18/25 In Process (Tylenol Tablet) 13:45 Morphine Sulfate PHA 01/18/25 In Process Injection 13:45 Nitroglycerin PHA 01/18/25 In Process Sublingual (Ntrostat 13:45 Morphine Sulfate PHA 01/18/25 In Process Injection 13:45 Stat Ekg For Chest [facility] 01/18/25 In Process Pain 13:34 Notify Md Of Changes [facility] 01/18/25 In Process From Base 13:34 Hazardous Materials Driver For [facility] 01/18/25 In Process 24 Hours 13:34 Emergency Dysrhythmia [facility] 01/18/25 In Process Protocol 13:34 Rhythm Strips Once [facility] 01/18/25 In Process Every Shift 13:34 Oxygen By Nasal RT 01/18/25 Transmitted Cannula 13:34 Metoprolol Tartrate [facility] 01/18/25 Transmitted Tablet (Lopressor Ta 22:00 Rivaroxaban Tablet PHA 01/19/25 Transmitted (Xarelto Tablet) 10:00 Furosemide Injection [facility] 01/18/25 Verified (Lasix Injection) 18:00 Date of Service: Jan 18, 2025 Billing Provider: GATITO SOLOMON Common Visit Codes: [id number] INP/OBS CARE (HIGH) GATITO SOLOMON Jan 18, 2025 13:59
[2025-01-18] MEDS: RIVAROXABAN 20 MG TAB PO SCH (14:00)
[2025-01-18 14:03] LABS: Triglycerides 100 mg/dL (< 150)
[2025-01-18 14:05] LABS: Cholesterol 163 mg/dL (< 200)
[2025-01-18 14:08] LABS: HDL Cholesterol 31 mg/dL (40-59); LDL Cholesterol 128 mg/dL (< 100)
[2025-01-18 14:10] LABS: Amphetamine Screen, Urine Neg (NEGATIVE); Barbiturate Scree,Urine Neg (NEGATIVE); Benzodiazephine Screen, Urine Neg (NEGATIVE); Cannabinoid Screen, Urine Neg (NEGATIVE); Cocaine Screen, Urine Neg (NEGATIVE); Opiate Scree,Urine Neg (NEGATIVE); Phencyclidine Screen, Urine Neg (NEGATIVE)
--- NOTE | 2025-01-18 16:30 | DVHINCON2 ---
Date Seen: Jan 18, 2025 Referring Physician MERNA Leary Reason for Consultation EF 10% History of Present Illness This is a 44-year-old male patient who presents to the emergency room with chief complaint of bilateral lower extremity edema for one week. Cardiology has been consulted at this time for CHF exacerbation. Initial twelve lead electrocardiogram reveals sinus tachycardia with left ventricular hypertrophy and PVCs. Initial troponin level of 106ng/L with down trend thereafter. The patient denies any cardiac symptoms such as chest pain, palpitations, or shortness of breath. Initial BNP level of 1044.24pg/mL. Significant past medical history includes congestive heart failure with reduced ejection fraction, lower extremity DVT (on Xarelto), and polysubstance use. 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 Past Medical History Past medical history reviewed. No other significant than mentioned above. Past Surgical History Denies any previous surgeries Family History: Patient reports no known family medical history. Family History Family history reviewed. Social History Patient admits to methamphetamine use, last time approximately one week ago Patient has a 10 pack-year history, smokes approximately half pack per day Admits to occasional alcohol use Allergies: Coded Allergies: NO KNOWN ALLERGIES (Unverified , 07/14/24) Home Meds Active Scripts Potassium Chloride (Klor-Con M10) 10 Meq Tab, 1 TAB PO DAILY, #30 TAB Prov:JONES TORREZ MD 09/06/24 Metoprolol Tartrate (Lopressor) 25 Mg Tb, 25 MG PO BID, #60 TAB Prov:JONES TORREZ MD 09/06/24 Furosemide (Furosemide) 40 Mg Tab, 1 TAB PO BID, #60 TAB Prov:JONES TORREZ MD 09/06/24 Rivaroxaban (Xarelto Tablet) 20 Mg Tb, 1 TAB PO DAILY for 60 Days, #60 TAB Prov:JONES TORREZ MD 09/06/24 Home Meds Home medications reviewed. Current Medications Current Medications Medications (Trade) Dose Ordered Sig/Pravin Route PRN Reason Start Time Stop Time Status Last Admin Diagnostic Test (Pha) (Accu-Chek Comfort Curve T) 1 strip ACHS 01/18/25 17:00 Insulin Human Regular (InsuLIN R) ACHS SC 01/18/25 17:00 Dextrose 50 ml UD PRN IV Blood Sugar LESS THAN 60 01/18/25 13:45 Acetaminophen/ Hydrocodone Bitart ([place] 5/325MG Tab) 1 tab Q4HP PRN PO MODERATE PAIN (4-6 PAIN SCALE) 01/18/25 13:45 Ondansetron HCl (Zofran) 4 mg Q4HP PRN IV NAUSEA / VOMITING 01/18/25 13:45 Acetaminophen (Tylenol Tablet) 650 mg Q6HP PRN PO PAIN SCALE 1-3 OR TEMP>100.4 01/18/25 13:45 Morphine Sulfate 2 mg Q4HPRN PRN IV SEVERE PAIN (7-10 PAIN SCALE) 01/18/25 13:45 Nitroglycerin (Ntrostat Sublingual) 0.4 mg Q5MINP PRN SL FOR CHEST PAIN 01/18/25 13:45 Morphine Sulfate 2 mg Q30M PRN IV FOR CHEST PAIN 01/18/25 13:45 Metoprolol Tartrate (Lopressor Tablet) 25 mg BID PO 01/18/25 22:00 Rivaroxaban (Xarelto Tablet) 20 mg DAILY PO 01/19/25 10:00 01/18/25 14:00 DC Furosemide (Lasix Injection) 40 mg BIDD IV 01/18/25 18:00 Rivaroxaban (Xarelto Tablet) 20 mg DAILY PO 01/18/25 14:00 Review of Systems Constitutional: No symptom reported Ears, Nose, & Throat: No symptom reported Eyes: No symptom reported Neurological: No symptoms reported Pulmonary/Respiratory: No symptoms reported Cardiovascular: Bilateral lower extremity edema Gastrointestinal: No symptom reported Genitourinary: No symptom reported Musculoskeletal: No symptom reported Skin: No symptom reported Psychiatric: No symptom reported Endocrine: No symptom reported Hematologic/Lymphatic: No symptom reported Vital Signs Vital Signs Date Time Temp Pulse Resp B/P (MAP) Pulse Ox O2 Delivery O2 Flow Rate FiO2 01/18/25 14:01 97.4 109 18 98/71 (80) 97 97.4 01/18/25 12:30 Room Air* 0 21 Physical Exam General Appearance: Cooperative. Well-developed. Well-nourished. No acute distress. Pulmonary/Respiratory: Coarse throughout Cardiovascular/Chest: Regular rate and rhythm. Peripheral Pulses: 2+ Radial (R). 2+ Radial (L). Unable to assess pedal pulses this time, patient in ER lobby hallway and shoes are on Abdominal Exam: Normal bowel sounds. Ankle Exam: 4+ pitting edema Lower extremities: 4+ pitting edema Neuro/Mental Status: A/OX4, coherent. Thoughts/Psych: Normal thought pattern. Appropriate mood and affect. Good judgment and insight. Appearance: No acute distress. Skin Exam: Normal inspection. Normal color. Warm and dry. Labs/Diagnostic Data Labs Test 01/18/25 13:54 01/18/25 12:51 01/18/25 11:50 01/18/25 10:53 Range/Units Troponin I High Sensitivity 80 *H </=54 ng/L Urine Color Light-yellow Yellow Urine Clarity Clear Clear Urine pH 7.0 5.0-9.0 Urine Specific [place] 1.005 1.001-1.035 Urine Protein Negative Negative Urine Ketones Negative Negative Urine Blood Negative Negative /uL Urine Nitrite Negative Negative Urine Bilirubin Negative Negative Urine Urobilinogen Normal Negative mg/dL Urine Leukocyte Esterase Negative Negative /uL Urine RBC 1 0 - 3 /hpf Urine Microscopic WBC < 1 0-3 /HPF Urine Squamous Epithelial Cells None seen <5 /hpf Urine Bacteria Few H None Seen /hpf Urine Hyaline Casts Mod 0 - 2 /lpf Urine Glucose Normal Normal mg/dL Urine Opiates Screen Neg NEGATIVE Urine Fentanyl Screen Neg NEGATIVE Urine Barbiturates Screen Neg NEGATIVE Urine Phencyclidine Screen Neg NEGATIVE Urine Amphetamines Screen Neg NEGATIVE Urine Benzodiazepines Screen Neg NEGATIVE Urine Cocaine Screen Neg NEGATIVE Urine Cannabinoids Screen Neg NEGATIVE Prothrombin Time 15.0 H 9.3-11.8 sec Prothrombin Time INR 1.47 H 0.9-1.15 Activated Partial Thromboplast Time 31.2 24.5-34.5 SEC White Blood Count 6.7 4.4-10.8 10^3/uL Red Blood Count 4.78 4.5-5.90 10^6/uL Hemoglobin 15.7 13.5-17.5 g/dL Hematocrit 46.9 41.0-53.0 % Mean Corpuscular Volume 98.0 80.0-100.0 fL Mean Corpuscular Hemoglobin 32.7 H 28.0-32.0 pg Mean Corpuscular Hemoglobin Concent 33.4 32.0-36.0 g/dL Red Cell Distribution Width 15.0 H 11.8-14.3 % Platelet Count 184 140-450 10^3/uL Mean Platelet Volume 10.0 6.9-10.8 fL Neutrophils (%) (Auto) 63.3 37.0-80.0 % Lymphocytes (%) (Auto) 25.5 10.0-50.0 % Monocytes (%) (Auto) 8.7 0.0-12.0 % Eosinophils (%) (Auto) 1.6 0.0-7.0 % Basophils (%) (Auto) 0.9 0.0-2.0 % Neutrophils # (Auto) 4.2 1.6-8.6 10 ^3/uL Lymphocytes # (Auto) 1.7 0.4-5.4 10 ^3/uL Monocytes # (Auto) 0.6 0-1.3 10 ^3/uL Eosinophils # (Auto) 0.1 0-0.8 10 ^3/uL Basophils # (Auto) 0.1 0-0.2 10 ^3/uL Nucleated Red Blood Cells 0.1 % Sodium Level 142 136-145 mmol/L Potassium Level 4.2 3.5-5.1 mmol/L Chloride Level 108 H 98-107 mmol/L Carbon Dioxide Level 24 20-31 mmol/L Anion Gap 10 5-15 Blood Urea Nitrogen 12 9-23 mg/dL Creatinine 1.51 H 0.700-1.30 mg/dL Glomerular Filtration Rate Calc 58 >90 mL/min BUN/Creatinine Ratio 7.9 L 10.0-20.0 Serum Glucose 162 H 74-106 mg/dL Hemoglobin A1c 6.4 H <5.7 % A1C Calcium Level 9.6 8.7-10.4 mg/dL Total Bilirubin 0.7 0.2-1.0 mg/dL Aspartate Amino Transferase (AST) 32 <34 U/L Alanine Aminotransferase (ALT) 34 7-40 U/L Alkaline Phosphatase 74 46-116 U/L B-Type Natriuretic Peptide 1044.24 0-100 pg/mL Total Protein 6.4 5.7-8.2 g/dL Albumin 4.0 3.2-4.8 g/dL Triglycerides Level 100 < 150 mg/dL Cholesterol Level 163 < 200 mg/dL LDL Cholesterol 128 H < 100 mg/dL HDL Cholesterol 31 L 40-59 mg/dL Thyroid Stimulating Hormone (TSH) 2.55 0.55-4.78 uIU/mL Assessment Acute on chronic decompensated HFrEF, NYHA class III NSTEMI, likely type 2 secondary to above End-stage dilated cardiomyopathy, 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 Arevalo): * Transthoracic echocardiogram to evaluate cardiac function * Transthoracic echocardiogram from 07/15/2024 reveals an EF of 10% with a global hypokinesis, RVSP 40 mmHg * Initiate guideline directed medical therapy for CHF as renal function permits * Hold ARNI and MRA (spironolactone) until renal function improves * Strict intake and output, daily weights, maintain fluid restriction * Aggressive diuresis as tolerated * Close Cardiac surveillance * Risk factor modifications, counseled * Cessation from illicit drugs * Compliance with medication * Outpatient Cardiology follow up Thank you for allowing us to care for this patient. Please call with any q uestions or concerns. Critical care time spent: 44 minutes This medical document was created using an electronic medical record system with voice recognition software and computerized dictation system. Although this document has been carefully reviewed, there might still be some phonetic and typographical errors. Occasional wrong-word or ``sound-alike substitutions may have occurred due to the inherent limitations of voice recognition software. These areas are purely typographical due to imperfections of the software programs and do not reflect any compromise in the patient's medical care. Please read the chart carefully and recognize, using context, where these substitutions have occurred. Plan discussed with: Patient NYHA Physical activity limitations: Class3(Marked) ordinary Date of Service: Jan 18, 2025 Billing Provider: CASEY CAMPOS Cardiology Common Codes: [id number] INP/OBS CARE (High) Cardiology Consultation Codes: [id number] CONSULT <45MIN CASEY CAMPOS Jan 18, 2025 16:30
[2025-01-18] MEDS: InsuLIN REG 1unit/0.01ml Soln (100units/ml) SC SCH (17:00)
[2025-01-18] MEDS: ACCU-CHEK COMFORT CURVE STRIP VI SCH (17:00)
[2025-01-18] MEDS: FUROSEMIDE 40 MG/4 ML VIAL IV SCH (18:44)
[2025-01-18] MEDS: METOPROLOL TARTRATE 25 MG TAB PO SCH (22:00)
--- NOTE | 2025-01-18 22:27 | DVHINCON2 ---
Date Seen: Jan 18, 2025 Referring Physician MERNA Leary Reason for Consultation EF 10% History of Present Illness This is a 44-year-old male with a past medical history of congestive heart failure with reduced ejection fraction, lower extremity DVT (on Xarelto), and polysubstance use who presents to the ED with complaints of bilateral lower extremity edema for one week. Cardiology has been consulted at this time for CHF exacerbation. Initial twelve lead electrocardiogram reveals sinus tachycardia with left ventricular hypertrophy and PVCs. Initial troponin level of 106ng/L with down trend thereafter. The patient denies any cardiac symptoms such as chest pain, palpitations, or shortness of breath. Initial BNP level of 1044.24pg/mL. Chest x-ray shows cardiomegaly with pulmonary vascular congestion. BLE Venous Duplex shows a nonocclusive thrombus in the bilateral mid and distal superficial femoral veins. Past Medical History Past medical history reviewed. No other significant than mentioned above. Past Surgical History Denies any previous surgeries Family History: Patient reports no known family medical history. Allergies: Coded Allergies: NO KNOWN ALLERGIES (Unverified , 07/14/24) Home Meds Active Scripts Potassium Chloride (Klor-Con M10) 10 Meq Tab, 1 TAB PO DAILY, #30 TAB Prov:JONES TORREZ MD 09/06/24 Metoprolol Tartrate (Lopressor) 25 Mg Tb, 25 MG PO BID, #60 TAB Prov:JONES TORERZ MD 09/06/24 Furosemide (Furosemide) 40 Mg Tab, 1 TAB PO BID, #60 TAB Prov:JONES TORREZ MD 09/06/24 Rivaroxaban (Xarelto Tablet) 20 Mg Tb, 1 TAB PO DAILY for 60 Days, #60 TAB Prov:JONES TORREZ MD 09/06/24 Current Medications Current Medications Medications (Trade) Dose Ordered Sig/Pravin Route PRN Reason Start Time Stop Time Status Last Admin Diagnostic Test (Pha) (Accu-Chek Comfort Curve T) 1 strip ACHS 01/18/25 17:00 Insulin Human Regular (InsuLIN R) ACHS SC 01/18/25 17:00 Dextrose 50 ml UD PRN IV Blood Sugar LESS THAN 60 01/18/25 13:45 Acetaminophen/ Hydrocodone Bitart (Lissie 5/325MG Tab) 1 tab Q4HP PRN PO MODERATE PAIN (4-6 PAIN SCALE) 01/18/25 13:45 Ondansetron HCl (Zofran) 4 mg Q4HP PRN IV NAUSEA / VOMITING 01/18/25 13:45 Acetaminophen (Tylenol Tablet) 650 mg Q6HP PRN PO PAIN SCALE 1-3 OR TEMP>100.4 01/18/25 13:45 Morphine Sulfate 2 mg Q4HPRN PRN IV SEVERE PAIN (7-10 PAIN SCALE) 01/18/25 13:45 Nitroglycerin (Ntrostat Sublingual) 0.4 mg Q5MINP PRN SL FOR CHEST PAIN 01/18/25 13:45 Morphine Sulfate 2 mg Q30M PRN IV FOR CHEST PAIN 01/18/25 13:45 Metoprolol Tartrate (Lopressor Tablet) 25 mg BID PO 01/18/25 22:00 Rivaroxaban (Xarelto Tablet) 20 mg DAILY PO 01/19/25 10:00 01/18/25 14:00 DC Furosemide (Lasix Injection) 40 mg BIDD IV 01/18/25 18:00 Rivaroxaban (Xarelto Tablet) 20 mg DAILY PO 01/18/25 14:00 Empaglifozin (Jardiance) 10 mg DAILY PO 01/19/25 10:00 UNV Review of Systems Constitutional: No symptom reported Ears, Nose, & Throat: No symptom reported Eyes: No symptom reported Neurological: No symptoms reported Pulmonary/Respiratory: No symptoms reported Cardiovascular: Bilateral lower extremity edema Gastrointestinal: No symptom reported Genitourinary: No symptom reported Musculoskeletal: No symptom reported Skin: No symptom reported Psychiatric: No symptom reported Endocrine: No symptom reported Hematologic/Lymphatic: No symptom reported Vital Signs Vital Signs Date Time Temp Pulse Resp B/P (MAP) Pulse Ox O2 Delivery O2 Flow Rate FiO2 01/18/25 14:01 97.4 109 18 98/71 (80) 97 97.4 01/18/25 12:30 Room Air* 0 21 Physical Exam GENERAL: Alert and oriented x 3. No acute distress. EYES: PERRL, EOMI. Anicteric. HENT: Moist mucous membranes. LUNGS: Coarse breath sounds. CARDIOVASCULAR: Regular rate and rhythm. ABDOMEN: Soft, nontender and nondistended. EXTREMITIES: 4+ pitting edema. NEUROLOGIC: No focal neurological deficits. SKIN: Warm, dry. Labs/Diagnostic Data Labs Test 01/18/25 13:54 01/18/25 12:51 01/18/25 11:50 01/18/25 10:53 Range/Units Troponin I High Sensitivity 80 *H </=54 ng/L Urine Color Light-yellow Yellow Urine Clarity Clear Clear Urine pH 7.0 5.0-9.0 Urine Specific [place] 1.005 1.001-1.035 Urine Protein Negative Negative Urine Ketones Negative Negative Urine Blood Negative Negative /uL Urine Nitrite Negative Negative Urine Bilirubin Negative Negative Urine Urobilinogen Normal Negative mg/dL Urine Leukocyte Esterase Negative Negative /uL Urine RBC 1 0 - 3 /hpf Urine Microscopic WBC < 1 0-3 /HPF Urine Squamous Epithelial Cells None seen <5 /hpf Urine Bacteria Few H None Seen /hpf Urine Hyaline Casts Mod 0 - 2 /lpf Urine Glucose Normal Normal mg/dL Urine Opiates Screen Neg NEGATIVE Urine Fentanyl Screen Neg NEGATIVE Urine Barbiturates Screen Neg NEGATIVE Urine Phencyclidine Screen Neg NEGATIVE Urine Amphetamines Screen Neg NEGATIVE Urine Benzodiazepines Screen Neg NEGATIVE Urine Cocaine Screen Neg NEGATIVE Urine Cannabinoids Screen Neg NEGATIVE Prothrombin Time 15.0 H 9.3-11.8 sec Prothrombin Time INR 1.47 H 0.9-1.15 Activated Partial Thromboplast Time 31.2 24.5-34.5 SEC White Blood Count 6.7 4.4-10.8 10^3/uL Red Blood Count 4.78 4.5-5.90 10^6/uL Hemoglobin 15.7 13.5-17.5 g/dL Hematocrit 46.9 41.0-53.0 % Mean Corpuscular Volume 98.0 80.0-100.0 fL Mean Corpuscular Hemoglobin 32.7 H 28.0-32.0 pg Mean Corpuscular Hemoglobin Concent 33.4 32.0-36.0 g/dL Red Cell Distribution Width 15.0 H 11.8-14.3 % Platelet Count 184 140-450 10^3/uL Mean Platelet Volume 10.0 6.9-10.8 fL Neutrophils (%) (Auto) 63.3 37.0-80.0 % Lymphocytes (%) (Auto) 25.5 10.0-50.0 % Monocytes (%) (Auto) 8.7 0.0-12.0 % Eosinophils (%) (Auto) 1.6 0.0-7.0 % Basophils (%) (Auto) 0.9 0.0-2.0 % Neutrophils # (Auto) 4.2 1.6-8.6 10 ^3/uL Lymphocytes # (Auto) 1.7 0.4-5.4 10 ^3/uL Monocytes # (Auto) 0.6 0-1.3 10 ^3/uL Eosinophils # (Auto) 0.1 0-0.8 10 ^3/uL Basophils # (Auto) 0.1 0-0.2 10 ^3/uL Nucleated Red Blood Cells 0.1 % Sodium Level 142 136-145 mmol/L Potassium Level 4.2 3.5-5.1 mmol/L Chloride Level 108 H 98-107 mmol/L Carbon Dioxide Level 24 20-31 mmol/L Anion Gap 10 5-15 Blood Urea Nitrogen 12 9-23 mg/dL Creatinine 1.51 H 0.700-1.30 mg/dL Glomerular Filtration Rate Calc 58 >90 mL/min BUN/Creatinine Ratio 7.9 L 10.0-20.0 Serum Glucose 162 H 74-106 mg/dL Hemoglobin A1c 6.4 H <5.7 % A1C Calcium Level 9.6 8.7-10.4 mg/dL Total Bilirubin 0.7 0.2-1.0 mg/dL Aspartate Amino Transferase (AST) 32 <34 U/L Alanine Aminotransferase (ALT) 34 7-40 U/L Alkaline Phosphatase 74 46-116 U/L B-Type Natriuretic Peptide 1044.24 0-100 pg/mL Total Protein 6.4 5.7-8.2 g/dL Albumin 4.0 3.2-4.8 g/dL Triglycerides Level 100 < 150 mg/dL Cholesterol Level 163 < 200 mg/dL LDL Cholesterol 128 H < 100 mg/dL HDL Cholesterol 31 L 40-59 mg/dL Thyroid Stimulating Hormone (TSH) 2.55 0.55-4.78 uIU/mL Assessment Acute on chronic decompensated HFrEF, NYHA class III. NSTEMI, likely type 2 secondary to above. 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 Mitral valve regurgitation, moderate degree (per echocardiogram on 07/15/2024). History of lower extremity DVT. Pulmonary hypertension. Acute kidney injury. Prediabetes. Illicit drug use. Tobacco use. Medical noncompliance. Plan/Recommendation I agree with your ongoing assessment and care of plan. Patient has been seen by Teri Pineda NP on my behalf, her and I discussed the plan with the patient. Transthoracic echocardiogram to evaluate cardiac function. Transthoracic echocardiogram from 07/15/2024 reveals an EF of 10% with a global hypokinesis, RVSP 40 mmHg. Initiate guideline directed medical therapy for CHF as renal function permits. Hold ARNI and MRA (spironolactone) until renal function improves. Strict intake and output, daily weights, maintain fluid restriction. Aggressive diuresis as tolerated. Close Cardiac surveillance. Risk factor modifications, counseled. Cessation from illicit drugs. Compliance with medication. Outpatient Cardiology follow up. Additional plan as per the hospital course. Plan discussed with: Patient NYHA Physical activity limitations: Class3(Marked) ordinary Date of Service: Jan 18, 2025 Billing Provider: MARIA E KIM MD Cardiology Common Codes: [id number] INP/OBS CARE (High) Cardiology Consultation Codes: [id number] CONSULT <45MIN MARIA E KIM MD Jan 18, 2025 16:46
[2025-01-19] VITALS (10 sets, daily range): BP systolic 106–156; BP diastolic 60–89; PULSE 50–110; RESP 18–24; TEMP 97.4–98.6; O2SAT 93–98
[2025-01-19] MEDS: EMPAGLIFLOZIN 10 MG TAB PO SCH (09:45)
[2025-01-19] MEDS ORDERED: RIVAROXABAN 20 MG TAB PO SCH (10:00)
[2025-01-19 10:16] LABS: Basophils # (auto) 0.1 10 ^3/uL (0-0.2); Basophils % (auto) 1.3 % (0.0-2.0); Eosinophils # (auto) 0.1 10 ^3/uL (0-0.8); Eosinophils % (auto) 2.4 % (0.0-7.0); Hematocrit 44.9 % (41.0-53.0); Lymphocytes # (auto) 1.4 10 ^3/uL (0.4-5.4); Mean Corpuscular Hemoglobin 32.5 pg (28.0-32.0); Mean Corpuscular Hgb Conc. 33.5 g/dL (32.0-36.0); Mean Corpuscular Volume 97.1 fL (80.0-100.0); Monocytes # (auto) 0.5 10 ^3/uL (0-1.3); Monocytes % (auto) 10.1 % (0.0-12.0); Neutrophils # (auto) 3.3 10 ^3/uL (1.6-8.6); Neutrophils % (auto) 60.2 % (37.0-80.0); Nucleated Red Blood Cells % 0.1 %; Platelet Count (auto) 170 10^3/uL (140-450); Red Blood Cells 4.63 10^6/uL (4.5-5.90); Red Cell Distribution Width 14.7 % (11.8-14.3); White Blood Cell 5.4 10^3/uL (4.4-10.8)
[2025-01-19 10:32] LABS: Alanine Aminotransferase 30 U/L (7-40); Albumin 3.7 g/dL (3.2-4.8); Alkaline Phosphatase 69 U/L (46-116); Anion Gap 9 (5-15); Aspartate Aminotransferase 27 U/L (<34); BUN/Creatinine Ratio 12.2 (10.0-20.0); Blood Urea Nitrogen 18 mg/dL (9-23); Calcium 9.7 mg/dL (8.7-10.4); Carbon Dioxide 27 mmol/L (20-31); Chloride 107 mmol/L (98-107); Potassium 4.1 mmol/L (3.5-5.1); Sodium 143 mmol/L (136-145); Total Protein 5.9 g/dL (5.7-8.2)
[2025-01-19 10:33] LABS: Bilirubin, Total 0.7 mg/dL (0.2-1.0)
[2025-01-19 10:44] LABS: Glucose 126 mg/dL (74-106)
[2025-01-19] MEDS: ACETAMINOPHEN 325 MG TAB PO PRN (11:16)
--- NOTE | 2025-01-19 14:57 | DVHPN2 ---
Subjective I am assuming they get up the patient from pretty on board was under the care of the hospitalist team that he will sign of the brain. This is a follow up with 44-year-old male with a known history of end-stage heart disease but EF of 10% presented to the hospital by Lower extremity swelling found to have acute on chronic in his heart failure exacerbation. Patient currently complaining of leg swelling as well as shortness breath on exertion. 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 motor 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 Medications Current Medications Medications Dose Ordered Sig/Pravin Route Start Time Stop Time Status Last Admin Dose Admin Diagnostic Test (Pha) 1 strip ACHS 01/18/25 17:00 01/19/25 11:19 1 STRIP Insulin Human Regular ACHS SC 01/18/25 17:00 01/19/25 11:17 3 UNITS Dextrose 50 ml UD PRN IV 01/18/25 13:45 Acetaminophen/ Hydrocodone Bitart 1 tab Q4HP PRN PO 01/18/25 13:45 Ondansetron HCl 4 mg Q4HP PRN IV 01/18/25 13:45 Acetaminophen 650 mg Q6HP PRN PO 01/18/25 13:45 01/19/25 11:16 650 MG Morphine Sulfate 2 mg Q4HPRN PRN IV 01/18/25 13:45 Nitroglycerin 0.4 mg Q5MINP PRN SL 01/18/25 13:45 Morphine Sulfate 2 mg Q30M PRN IV 01/18/25 13:45 Metoprolol Tartrate 25 mg BID PO 01/18/25 22:00 01/19/25 09:46 25 MG Furosemide 40 mg BIDD IV 01/18/25 18:00 01/19/25 06:22 40 MG Rivaroxaban 20 mg DAILY PO 01/18/25 14:00 01/19/25 09:46 20 MG Empaglifozin 10 mg DAILY PO 01/19/25 10:00 01/19/25 09:45 10 MG Laboratory Results Laboratory Tests 01/19/25 10:03 Chemistry Test 01/19/25 10:03 Albumin 3.7 g/dL (3.2-4.8) Calcium Level 9.7 mg/dL (8.7-10.4) Total Protein 5.9 g/dL (5.7-8.2) LFT Test 01/19/25 10:03 Alanine Aminotransferase (ALT) 30 U/L (7-40) Alkaline Phosphatase 69 U/L (46-116) Aspartate Amino Transferase (AST) 27 U/L (<34) Total Bilirubin 0.7 mg/dL (0.2-1.0) Urinalysis Test 01/18/25 12:51 Urine Color Light-yellow (Yellow) Urine Clarity Clear (Clear) Urine pH 7.0 (5.0-9.0) Urine Specific [place] 1.005 (1.001-1.035) Urine Protein Negative (Negative) Urine Ketones Negative (Negative) Urine Blood Negative /uL (Negative) Urine Nitrite Negative (Negative) Urine Bilirubin Negative (Negative) Urine Urobilinogen Normal mg/dL (Negative) Urine Leukocyte Esterase Negative /uL (Negative) Urine RBC 1 /hpf (0 - 3) Urine Microscopic WBC < 1 /HPF (0-3) Urine Squamous Epithelial Cells None seen /hpf (<5) Urine Bacteria Few /hpf (None Seen) H Urine Hyaline Casts Mod /lpf (0 - 2) Urine Glucose Normal mg/dL (Normal) Assessment/Plan Assessment/Plan 44-year-old male with a known history of congestive heart failure with the EF of 10% presented to the hospital with a bilateral lower extremity swelling found to have 1. Acute on chronic congestive heart failure exacerbation with systolic dysfunction 2. End-stage heart she has been the cardiomyopathy with EF of 10% 3. Chronic illicit drug use currently drug screen is negative 4. Bilateral lower extremity DVT 5. Hypertension -IV diuretics, daily weight, strict I&Os -cardiology evaluation. Plan discussed with: Patient, Other Date of Service: Jan 19, 2025 Billing Provider: CATALINA SHIPLEY MD Common Visit Codes: [id number] INP/OBS CARE(MOD) CATALINA SHIPLEY MD Jan 19, 2025 14:57
--- NOTE | 2025-01-19 23:48 | DVHPN2 ---
Progress Note - Dictate Date Seen: Jan 19, 2025 Medical Necessity Reason Pt with a Central, PICC or Fol: No Subjective Patient was seen and evaluated in follow up. Patient is complaining of leg pain with swelling and shortness breath. Patient stable on room air. 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 Telemetry reviewed. vital signs Vital Sign Date Time Temp Pulse Resp B/P (MAP) Pulse Ox O2 Delivery O2 Flow Rate FiO2 01/19/25 17:56 118/89 01/19/25 16:32 98.3 50 18 93 98.3 01/19/25 08:00 Room Air* 0 21 Total Intake and Output 01/18/25 01/18/25 01/19/25 15:00 23:00 07:00 Intake Total 0 ml Output Total 0 ml Balance 0 ml medications Current Medications Medications Dose Ordered Sig/Pravin Route Start Time Stop Time Status Last Admin Dose Admin Diagnostic Test (Pha) 1 strip ACHS 01/18/25 17:00 01/19/25 17:00 1 STRIP Insulin Human Regular ACHS SC 01/18/25 17:00 01/19/25 11:17 3 UNITS Dextrose 50 ml UD PRN IV 01/18/25 13:45 Acetaminophen/ Hydrocodone Bitart 1 tab Q4HP PRN PO 01/18/25 13:45 Ondansetron HCl 4 mg Q4HP PRN IV 01/18/25 13:45 Acetaminophen 650 mg Q6HP PRN PO 01/18/25 13:45 01/19/25 11:16 650 MG Morphine Sulfate 2 mg Q4HPRN PRN IV 01/18/25 13:45 Nitroglycerin 0.4 mg Q5MINP PRN SL 01/18/25 13:45 Morphine Sulfate 2 mg Q30M PRN IV 01/18/25 13:45 Metoprolol Tartrate 25 mg BID PO 01/18/25 22:00 01/19/25 09:46 25 MG Furosemide 40 mg BIDD IV 01/18/25 18:00 01/19/25 17:56 40 MG Rivaroxaban 20 mg DAILY PO 01/18/25 14:00 01/19/25 09:46 20 MG Empaglifozin 10 mg DAILY PO 01/19/25 10:00 01/19/25 09:45 10 MG objective GENERAL: Alert and oriented x 3. No acute distress. EYES: PERRL, EOMI. Anicteric. HENT: Moist mucous membranes. LUNGS: Coarse breath sounds. CARDIOVASCULAR: Regular rate and rhythm. ABDOMEN: Soft, nontender and nondistended. EXTREMITIES: 4+ pitting edema. NEUROLOGIC: No focal neurological deficits. SKIN: Warm, dry. laboratory and microbiology Laboratory Tests 01/19/25 10:03 Test 01/19/25 10:03 Range/Units Serum Glucose 126 H 74-106 mg/dL Problem List Acute on chronic decompensated HFrEF, NYHA class III. NSTEMI, likely type 2 secondary to above. 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 Mitral valve regurgitation, moderate degree (per echocardiogram on 07/15/2024). History of lower extremity DVT. Pulmonary hypertension. Acute kidney injury. Prediabetes. Illicit drug use. Tobacco use. Medical noncompliance. Assessment/Plan Continued all current supportive medical care. Echocardiogram. Morphine and Nebo for pain management. Diuretics with Lasix. Metoprolol. Xarelto. Nitro SL. Additional plan as per the hospital course. Plan discussed with: Patient MARIA E KIM MD Jan 19, 2025 20:28
[2025-01-20 01:00] VITALS: BP 118/82; PULSE 100; RESP 18; TEMP 98.2; O2SAT 99
--- NOTE | 2025-01-20 01:33 | DVHSR ---
APPROVED REPORT EXAM: Two-dimensional and M-mode echocardiogram with Doppler and color Doppler. Blood Pressure: 140/60 mmHg INDICATION chf RISK FACTORS Height: 5'9, Weight: 207 DIMENSIONS LVDd6.8 (3.8-5.7cm)LA (2D)5.5 (1.9-4.0cm)Aortic Root3.3 (2.0-3.7cm) LVDs6.3 (2.5-4.0cm)LA (MM) (1.9-4.0cm)Aortic Cusp Exc3.1 (1.5-2.0cm) EF (%) 7.0 (55-70%)Rt. Atrium4.4 (1.9-4.0cm)Asc. Aorta3.1 cm IVSd0.8 (0.7-1.1cm)RV (D)4.3 (1.8-2.4cm) PWd1.1 (0.7-1.1cm) Mitral Valve MitralMitral Stenosis E wave1.01m/sMV Mean GR.mmHg A wave0.37m/sMV Peak GR.68mmHg E/A ratio2.72D MVAcm2 DECEL [id number] 1/2 Tim[place] Aortic Valve Aortic ValveAortic Stenosis V10.49m/Cris Mean GR.mmHg V20.78m/Cris Peak GR.2mmHg LVOT Diameter2.0 (1.8-2.4cm)Doppler AVA1.97cm2 Tricuspid Valve TR Velocity3.09m/s [id number] Conclusion REMARKABLY DILATED ALL CARDIAC CHAMBERS LV EF IS ONLY 7% NORMAL VALVES SEVEE MR AND TR CRITICAL PULMONARY HYPERTENSION RVSP IS 57 MM OF HG AND IS VERY HIGH NO EFFUSION STUDY DIAGNOSTIC OF END STAGE DILATED CARDIOMYOPATHY
[2025-01-20 05:00] VITALS: BP 106/73; PULSE 54; RESP 18; TEMP 98.2; O2SAT 100
[2025-01-20 08:00] VITALS: PULSE 107
[2025-01-20 08:22] VITALS: PULSE 105; RESP 19; O2SAT 92
[2025-01-20 09:00] VITALS: BP 104/72; PULSE 105; RESP 19; TEMP 97.7; O2SAT 97
[2025-01-20 13:00] VITALS: BP 101/72; PULSE 104; RESP 18; TEMP 97.8; O2SAT 97
[2025-01-20] MEDS ORDERED: EMPA1TAB PO (14:28)
--- NOTE | 2025-01-20 14:30 | DVHDS2 ---
Discharge Summary Date of Admission Jan 18, 2025 at 13:34 Date of Discharge: Jan 20, 2025 Labs/Diagnostic Data: Laboratory Results Test 01/20/25 11:02 01/19/25 10:03 01/18/25 13:54 01/18/25 12:51 POC Glucose 117 mg/dl (70-106) White Blood Count 5.4 10^3/uL (4.4-10.8) Red Blood Count 4.63 10^6/uL (4.5-5.90) Hemoglobin 15.0 g/dL (13.5-17.5) Hematocrit 44.9 % (41.0-53.0) Mean Corpuscular Volume 97.1 fL (80.0-100.0) Mean Corpuscular Hemoglobin 32.5 pg (28.0-32.0) Mean Corpuscular Hemoglobin Concent 33.5 g/dL (32.0-36.0) Red Cell Distribution Width 14.7 % (11.8-14.3) Platelet Count 170 10^3/uL (140-450) Mean Platelet Volume 10.1 fL (6.9-10.8) Neutrophils (%) (Auto) 60.2 % (37.0-80.0) Lymphocytes (%) (Auto) 26.0 % (10.0-50.0) Monocytes (%) (Auto) 10.1 % (0.0-12.0) Eosinophils (%) (Auto) 2.4 % (0.0-7.0) Basophils (%) (Auto) 1.3 % (0.0-2.0) Neutrophils # (Auto) 3.3 10 ^3/uL (1.6-8.6) Lymphocytes # (Auto) 1.4 10 ^3/uL (0.4-5.4) Monocytes # (Auto) 0.5 10 ^3/uL (0-1.3) Eosinophils # (Auto) 0.1 10 ^3/uL (0-0.8) Basophils # (Auto) 0.1 10 ^3/uL (0-0.2) Nucleated Red Blood Cells 0.1 % Sodium Level 143 mmol/L (136-145) Potassium Level 4.1 mmol/L (3.5-5.1) Chloride Level 107 mmol/L (98-107) Carbon Dioxide Level 27 mmol/L (20-31) Anion Gap 9 (5-15) Blood Urea Nitrogen 18 mg/dL (9-23) Creatinine 1.48 mg/dL (0.700-1.30) Glomerular Filtration Rate Calc 60 mL/min (>90) BUN/Creatinine Ratio 12.2 (10.0-20.0) Serum Glucose 126 mg/dL (74-106) Calcium Level 9.7 mg/dL (8.7-10.4) Total Bilirubin 0.7 mg/dL (0.2-1.0) Aspartate Amino Transferase (AST) 27 U/L (<34) Alanine Aminotransferase (ALT) 30 U/L (7-40) Alkaline Phosphatase 69 U/L (46-116) Total Protein 5.9 g/dL (5.7-8.2) Albumin 3.7 g/dL (3.2-4.8) Magnesium Level 1.9 mg/dL (1.6-2.6) Troponin I High Sensitivity 80 ng/L (</=54) Urine Color Light-yellow (Yellow) Urine Clarity Clear (Clear) Urine pH 7.0 (5.0-9.0) Urine Specific [place] 1.005 (1.001-1.035) Urine Protein Negative (Negative) Urine Ketones Negative (Negative) Urine Blood Negative /uL (Negative) Urine Nitrite Negative (Negative) Urine Bilirubin Negative (Negative) Urine Urobilinogen Normal mg/dL (Negative) Urine Leukocyte Esterase Negative /uL (Negative) Urine RBC 1 /hpf (0 - 3) Urine Microscopic WBC < 1 /HPF (0-3) Urine Squamous Epithelial Cells None seen /hpf (<5) Urine Bacteria Few /hpf (None Seen) Urine Hyaline Casts Mod /lpf (0 - 2) Urine Glucose Normal mg/dL (Normal) Urine Opiates Screen Neg (NEGATIVE) Urine Fentanyl Screen Neg (NEGATIVE) Urine Barbiturates Screen Neg (NEGATIVE) Urine Phencyclidine Screen Neg (NEGATIVE) Urine Amphetamines Screen Neg (NEGATIVE) Urine Benzodiazepines Screen Neg (NEGATIVE) Urine Cocaine Screen Neg (NEGATIVE) Urine Cannabinoids Screen Neg (NEGATIVE) Test 01/18/25 11:50 01/18/25 10:53 Prothrombin Time 15.0 sec (9.3-11.8) Prothrombin Time INR 1.47 (0.9-1.15) Activated Partial Thromboplast Time 31.2 SEC (24.5-34.5) Hemoglobin A1c 6.4 % A1C (<5.7) B-Type Natriuretic Peptide 1044.24 pg/mL (0-100) Triglycerides Level 100 mg/dL (< 150) Cholesterol Level 163 mg/dL (< 200) LDL Cholesterol 128 mg/dL (< 100) HDL Cholesterol 31 mg/dL (40-59) Thyroid Stimulating Hormone (TSH) 2.55 uIU/mL (0.55-4.78) Other Laboratory Tests 01/19/25 10:03 Brief Hx & Hospital Course: 44-year-old male with a known history of congestive heart failure with the EF of 10% presented to the hospital with a bilateral lower extremity swelling found to have acute on chronic congestive heart failure exacerbation with systolic dysfunction. Patient was given IV diuretics. Patient does have known history of bilateral DVT currently on Xarelto. Patient has a previous history of chronic illicit drug use currently denies any drug use. Patient was seen by Cardiology as well currently patient is stable to be discharged. New medication added is Jardiance. Condition at Discharge: Stable Final Diagnosis/Problems List 44-year-old male with a known history of congestive heart failure with the EF of 10% presented to the hospital with a bilateral lower extremity swelling found to have 1. Acute on chronic congestive heart failure exacerbation with systolic dysfunction 2. End-stage heart disease with cardiomyopathy with EF of 10% 3. Chronic illicit drug use currently drug screen is negative 4. Bilateral lower extremity DVT 5. Hypertension Discharge Disposition: Home SNF Discharge Will this Physician continue t: No Discharge Instruct/Medications Diet: Cardiac 2g Na,low cholest Activity: No Restrictions, As Tolerated Follow Up/Referral: Follow up with the PCP and Cardiology in one week. Medications: Medication as reconciled, new medication Jardiance Discharge Statement: "Patient was advised to return to the ER or call 911 if any headaches, dizziness, shortness of breath, chest pain, abdominal pain, bleeding, fevers, or worsening of medical condition. Patient was counseled about treatment plan, medications, possible side effects, patientverbalized understanding. All questions were answered to the best of my ability. This discharge took greater then 30 minutes in planning, reviewing documentation, counseling the patient, and discussing with other team members." ASSESSMENT ASSESSMENT Assessment 44-year-old male with a known history of congestive heart failure with the EF of 10% presented to the hospital with a bilateral lower extremity swelling found to have 1. Acute on chronic congestive heart failure exacerbation with systolic dysfunction 2. End-stage heart disease with cardiomyopathy with EF of 10% 3. Chronic illicit drug use currently drug screen is negative 4. Bilateral lower extremity DVT 5. Hypertension Date of Service: Jan 20, 2025 Billing Provider: CATALINA SHIPLEY MD Common Visit Codes: [id number] DISCH DAY >30min CATALINA SHIPLEY MD Jan 20, 2025 14:30
--- NOTE | 2025-01-20 22:36 | DVHPN2 ---
Progress Note - Dictate Date Seen: Jan 20, 2025 Medical Necessity Reason Pt with a Central, PICC or Fol: No Subjective Patient was seen and evaluated in follow up. Echocardiogram shows an EF of only 7%. Recommended outpatient cardiology follow up. Patient is cardiac stable for discharge. Telemetry reviewed. vital signs Vital Sign Date Time Temp Pulse Resp B/P (MAP) Pulse Ox O2 Delivery O2 Flow Rate FiO2 01/20/25 13:00 97.8 104 18 101/72 (82) 97 97.8 01/20/25 08:22 Room Air* 0 21 Total Intake and Output 01/19/25 01/19/25 01/20/25 15:00 23:00 07:00 Intake Total 1000 ml 0 ml Output Total 590 ml 900 ml 1250 ml Balance -590 ml 100 ml -1250 ml objective GENERAL: Alert and oriented x 3. No acute distress. EYES: PERRL, EOMI. Anicteric. HENT: Moist mucous membranes. LUNGS: Coarse breath sounds. CARDIOVASCULAR: Regular rate and rhythm. ABDOMEN: Soft, nontender and nondistended. EXTREMITIES: 4+ pitting edema. NEUROLOGIC: No focal neurological deficits. SKIN: Warm, dry. laboratory and microbiology Laboratory Tests 01/19/25 10:03 Test 01/19/25 10:03 Range/Units Serum Glucose 126 H 74-106 mg/dL Problem List Acute on chronic decompensated HFrEF, NYHA class III. NSTEMI, likely type 2 secondary to above. 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 Mitral valve regurgitation, moderate degree (per echocardiogram on 07/15/2024). History of lower extremity DVT. Pulmonary hypertension. Acute kidney injury. Prediabetes. Illicit drug use. Tobacco use. Medical noncompliance. Pulmonary hypertension. Assessment/Plan Continued all current supportive medical care. Morphine and [place] for pain management. Diuretics with Lasix. Metoprolol. Xarelto. Nitro SL. Additional plan as per the hospital course. Plan discussed with: Patient MARIA E KIM MD Jan 20, 2025 16:34
== END 2025-01-20 16:00 | disposition home or self-care (01) | DRG 194 ==
LOC: ER 10:37 → OVERFLOW 13:34 → TELE-WESTW 01-19 02:47
DX: I11.0 Hypertensive heart disease with heart failure (principal); I21.A1 Myocardial infarction type 2; I27.20 Pulmonary hypertension, unspecified; I82.413 Acute embolism and thrombosis of femoral vein, bilateral; N17.9 Acute kidney failure, unspecified; I42.0 Dilated cardiomyopathy; E66.9 Obesity, unspecified; I34.0 Nonrheumatic mitral (valve) insufficiency; F17.210 Nicotine dependence, cigarettes, uncomplicated; F12.90 Cannabis use, unspecified, uncomplicated; F15.90 Other stimulant use, unspecified, uncomplicated; R73.03 Prediabetes; R73.9 Hyperglycemia, unspecified; F10.90 Alcohol use, unspecified, uncomplicated; Z91.199 Patient's noncompliance with other medical treatment and regimen due to unspecified reason; Z79.899 Other long term (current) drug therapy; Z68.30 Body mass index [BMI] 30.0-30.9, adult; I50.84 End stage heart failure; I50.23 Acute on chronic systolic (congestive) heart failure
CPT/HCPCS: 36415; 71045; 80053; 80061; 80307; 81001; 82962; 83036; 83735; 83880; 84443; 84484; 85025; 85610; 85730; 93005; 93306; 93970; 96374; G0378; J1815

== ENCOUNTER 2025-02-06 02:39 | Inpatient (IN) | payer MEDICAID ==
[2025-02-06] VITALS (35 sets, daily range): BP systolic 95–128; BP diastolic 54–80; PULSE 97–135; RESP 14–30; TEMP 98.3–99.3; O2SAT 9–100
[~2025-02-06] VITALS: Ht 182.9 cm; Wt 89.0 kg
[~2025-02-06 02:39] MED LIST changes: +EMPA1TAB PO
[2025-02-06] MEDS: ALBUTEROL SULF 2.5 MG/0.5ML(0.5%) NEB SOLN NEB ONE (02:45)
[2025-02-06] MEDS: IPRATROPIUM BROM 0.5 MG/2.5ML INH SOL NEB ONE ×2 (02:45→04:11)
[2025-02-06] MEDS: FUROSEMIDE 40 MG/4 ML VIAL IV ONE ×2 (02:48→10:06)
[2025-02-06 03:00] LABS: Hematocrit 43.8 % (41.0-53.0); Hemoglobin 13.9 g/dL (13.5-17.5); Mean Corpuscular Hemoglobin 31.8 pg (28.0-32.0); Mean Corpuscular Volume 100.2 fL (80.0-100.0); Nucleated Red Blood Cells % 0.0 %
--- NOTE | 2025-02-06 03:01 | ED.PDOC ---
SOB-HPI HPI Comments 44 year old male presents to the ED via EMS with a chief complaint of shortness of breath. Per EMS, patient has been experiencing shortness of breath as well as productive cough for the past 3 days, shortness of breath worsened this morning, 911 was called. Upon EMS arrival, O2 sat was 74% on RA, patient was placed on c- pap machine, O2 sat improved to 98%. EMS also states, patient's stated patient ran out of Lasix medication, patient has BLE edema. Patient admits to methamphetamine use today. PMHx CHF, HTN, HLD. No other symptoms or modifying factors present at this time. Chief Complaint: Shortness of Breath Time Seen by MD: 02:45 Reviewed notes: Medications, Allergies Information Source: Patient, Emergency Med Personnel Mode of Arrival: EMS Severity: Moderate Timing: Hours Duration: Since onset Context: At Rest PE Risk Factors: None History of: CHF Prehospital treatment: C-Pap Modifying Factors: Nothing If cough with SOB: Productive Vital Signs Vital Signs Date Time Temp Pulse Resp B/P (MAP) Pulse Ox O2 Delivery O2 Flow Rate FiO2 02/06/25 04:57 103/56 02/06/25 04:53 112 02/06/25 04:40 99.3 27 98 40 99.3 02/06/25 04:15 Facial BiPAP Mask 02/06/25 02:47 20 Physical Exam PHYSICAL EXAM: General: Awake, alert , in distress Skin: Skin in warm, dry and intact. Appropriate color for ethnicity. HEENT: The head is normocephalic and atraumatic. Conjunctivae are clear without exudates or hemorrhage. Sclera is non-icteric. EOM are intact. No signs of nystagmus. Eyelids are normal in appearance without swelling or lesions. Oral mucosa is pink and moist Neck: The neck is supple with normal range of motion. No JVD. Cardiac: Heart rate and rhythm are normal. No murmurs, gallops, or rubs are auscultated. Respiratory: Positive respiratory distress. Rales bilaterally Abdominal: Abdomen is soft, non-tender without distention, guarding or rigidity. Bowel sounds are present and normoactive in all four quadrants. Extremities: 2+ pitting bilateral lower extremity edema Neurological: The patient is awake, alert and oriented to person, place, and time with normal speech. Speech is clear. There is no facial asymmetry. Psychiatric: Patient appears restless, agitated Review of Systems: REVIEW OF SYSTEMS: General: No fever, no chills, or fatigue HEENT: No sore throat, no earache, no congestion, no neck pain. Cardiac: No chest pain. No palpitations. Lungs: No shortness of breath, no cough. GI: No nausea, no vomiting, no diarrhea, no constipation, no abdominal pain : No dysuria, frequency, or urgency. No hematuria. Musculoskeletal: No joint pain , no joint swelling, no extremity edema. Skin: No rash, no itching. Neuro: No headache, no dizziness, no weakness Past Medical History PAST MEDICAL HISTORY: CHF, High Lipids, HTN Surgical History: Denies all surgeries Family History Family History: No family hx of Cancer, No family hx of DM, No family hx of Heart mike Social History Smoker: Cigarettes Alcohol: Occasionally Drugs: Marijuana, Methamphetamine Lives In: Home Was a procedure done? Was a procedure done?: No Differential Dx Differential Diagnosis: Anxiety, Asthma, Cardiogenic Shock, CHF, Hypertension, Hyperventilation, Hyponatremia, Myocardial infarction, Panic Attack, Pneumothorax, Pulmonary Embolism, Respiratory Distress, URI, Other X-Ray, Labs, Meds, VS Vital Signs Date Time Temp Pulse Resp B/P (MAP) Pulse Ox O2 Delivery O2 Flow Rate FiO2 02/06/25 04:57 103/56 02/06/25 04:53 112 02/06/25 04:40 99.3 123 27 110/70 98 40 99.3 02/06/25 04:40 180 02/06/25 04:15 123 110/70 98 Facial BiPAP Mask 40 02/06/25 04:04 125 30 96 Bi-Pap+ 40 40 02/06/25 04:00 132 02/06/25 03:39 133 02/06/25 02:59 99.3 136 26 129/105 (113) 78 99.3 02/06/25 02:55 129/87 Facial BiPAP Mask 40 02/06/25 02:48 127/97 02/06/25 02:47 98 Bi-Pap+ 20 100 100 02/06/25 02:47 99.3 131 26 131/83 (99) 98 99.3 Lab Test 02/06/25 04:19 02/06/25 03:38 02/06/25 03:32 02/06/25 02:50 Range/Units Lactic Acid Level 3.2 *H 0.4-2.0 mmol/L Urine Color Light-yellow Yellow Urine Clarity Clear Clear Urine pH 5.0 5.0-9.0 Urine Specific [place] 1.008 1.001-1.035 Urine Protein Negative Negative Urine Ketones Negative Negative Urine Blood Negative Negative /uL Urine Nitrite Negative Negative Urine Bilirubin Negative Negative Urine Urobilinogen Normal Negative mg/dL Urine Leukocyte Esterase Negative Negative /uL Urine RBC None seen 0 - 3 /hpf Urine Microscopic WBC < 1 0-3 /HPF Urine Squamous Epithelial Cells None seen <5 /hpf Urine Bacteria None seen None Seen /hpf Urine Glucose Normal Normal mg/dL Urine Opiates Screen Neg NEGATIVE Urine Fentanyl Screen Neg NEGATIVE Urine Barbiturates Screen Neg NEGATIVE Urine Phencyclidine Screen Neg NEGATIVE Urine Amphetamines Screen Pos NEGATIVE Urine Benzodiazepines Screen Neg NEGATIVE Urine Cocaine Screen Neg NEGATIVE Urine Cannabinoids Screen Neg NEGATIVE Troponin I High Sensitivity 85 *H </=54 ng/L Blood Gas Specimen Type Arterial Blood Gas Sample Site Left radial Blood Gas Patient Temperature 37.0 Arterial Blood Date Drawn [id number] Arterial Blood pH 7.459 H 7.350-7.450 Arterial Blood Partial Pressure CO2 26.3 L 35.0-48.0 mmHg Arterial Blood Partial Pressure O2 77.0 L 83.0-108.0 mmHg Arterial Blood HCO3 18.2 L 21.0-28.0 mmol/L Arterial Blood Oxygen Saturation 95.4 94.0-98.0 % Arterial Blood Base Excess -3.9 L -2.0-3.0 mmol/L Arterial Blood Oxyhemoglobin 94.0 94.0-98.0 % Arterial Blood Carboxyhemoglobin 1.0 0.5-1.5 % Arterial Blood Methemoglobin 0.5 0.0-1.5 % Demond Test Modified Blood Gas Total Hemoglobin 14.50 13.5-17.5 g/dL Blood Gas Set Respiration Rate 12.0 Blood Gas Modality Mask - bipap FiO2 % 30.0 Blood Gas EPAP 6 Blood Gas IPAP 12 Test 02/06/25 02:43 Range/Units White Blood Count 14.6 H 4.4-10.8 10^3/uL Red Blood Count 4.37 L 4.5-5.90 10^6/uL Hemoglobin 13.9 13.5-17.5 g/dL Hematocrit 43.8 41.0-53.0 % Mean Corpuscular Volume 100.2 H 80.0-100.0 fL Mean Corpuscular Hemoglobin 31.8 28.0-32.0 pg Mean Corpuscular Hemoglobin Concent 31.8 L 32.0-36.0 g/dL Red Cell Distribution Width 15.4 H 11.8-14.3 % Platelet Count 236 140-450 10^3/uL Mean Platelet Volume 9.0 6.9-10.8 fL Neutrophils (%) (Auto) 91.0 H 37.0-80.0 % Lymphocytes (%) (Auto) 3.4 L 10.0-50.0 % Monocytes (%) (Auto) 5.1 0.0-12.0 % Eosinophils (%) (Auto) 0.1 0.0-7.0 % Basophils (%) (Auto) 0.4 0.0-2.0 % Neutrophils # (Auto) 13.3 H 1.6-8.6 10 ^3/uL Lymphocytes # (Auto) 0.5 0.4-5.4 10 ^3/uL Monocytes # (Auto) 0.8 0-1.3 10 ^3/uL Eosinophils # (Auto) 0 0-0.8 10 ^3/uL Basophils # (Auto) 0.1 0-0.2 10 ^3/uL Nucleated Red Blood Cells 0.0 % Sodium Level 136 136-145 mmol/L Potassium Level 3.6 3.5-5.1 mmol/L Chloride Level 105 98-107 mmol/L Carbon Dioxide Level 21 20-31 mmol/L Anion Gap 10 5-15 Blood Urea Nitrogen 24 H 9-23 mg/dL Creatinine 1.90 H 0.700-1.30 mg/dL Glomerular Filtration Rate Calc 44 >90 mL/min BUN/Creatinine Ratio 12.6 10.0-20.0 Serum Glucose 157 H 74-106 mg/dL Calcium Level 8.4 L 8.7-10.4 mg/dL Total Bilirubin 1.2 H 0.2-1.0 mg/dL Aspartate Amino Transferase (AST) 67 H 13-40 U/L Alanine Aminotransferase (ALT) 140 H 7-40 U/L Alkaline Phosphatase 94 46-116 U/L Troponin I High Sensitivity 79 *H </=54 ng/L B-Type Natriuretic Peptide 2319.83 0-100 pg/mL Total Protein 5.9 5.7-8.2 g/dL Albumin 3.7 3.2-4.8 g/dL Current Medications Medications (Trade) Dose Ordered Sig/Pravin Route Start Time Stop Time Status Last Admin Albuterol (Ventolin Medneb) 5 mg ONCE ONCE NEB 02/06/25 02:45 02/06/25 02:46 DC 02/06/25 02:45 Ipratropium Onida (Atrovent Medneb) 0.5 mg ONCE ONCE NEB 02/06/25 02:45 02/06/25 02:46 DC 02/06/25 02:45 Furosemide (Lasix Injection) 40 mg ONCE ONCE IV 02/06/25 02:45 02/06/25 02:46 DC 02/06/25 02:48 Midazolam HCl (Versed Injection) 1 mg ONCE ONCE IV 02/06/25 03:15 02/06/25 03:16 DC 02/06/25 03:24 Levalbuterol HCl (Xopenex Medneb) 0.625 mg ONCE ONCE NEB 02/06/25 03:30 02/06/25 04:04 DC 02/06/25 04:11 Furosemide (Lasix Injection) 20 mg ONCE ONCE IV 02/06/25 04:00 02/06/25 04:01 DC 02/06/25 04:57 Ipratropium Onida (Atrovent Medneb) 0.5 mg ONCE ONCE NEB 02/06/25 04:00 02/06/25 04:01 DC 02/06/25 04:11 Diltiazem HCl (Cardizem Injection) 15 mg ONCE ONCE IV 02/06/25 04:45 02/06/25 04:46 DC 02/06/25 04:59 [place] [address] Ph: [phone] DIAGNOSTIC IMAGING Diagnostic Imaging Report : [id number] Signed PATIENT: AMBER STRANGE ACCT: [id number] UNIT: [id number] : 1980 LOC: ER ROOM / BED: / AGE / SEX: 44 / M ADM STATUS: REG ER SERVICE [id number] ORDERING PHYSICIAN: ROYA PAULINO PROCEDURE(s): CXR1 - CHEST XRAY 1 VIEW REASON: sob ORDER NUMBER(s): [id number], ACCESSION NUMBER(s): [id number] CHEST RADIOGRAPH Indication: sob Technique: Single frontal view of the chest was obtained COMPARISON: XY CHEST PORTABLE on DOS: 01/18/25 FINDINGS: Lines and Tubes: None Lungs: Clear Pleura: No effusion. No pneumothorax. Cardiomediastinal contours: Cardiomegaly. Bones: Unremarkable IMPRESSION: 1. Cardiomegaly. ATED BY: GLENN PANDYA MD DICTATED DATE/TIME: 02/06/25340 SIGNED BY: GLENN PANDYA MD SIGNED DATE/TIME: 02/06/25340 CC: Time of 1ST Reevaluation: 03:15 Reevaluation 1ST: Unchanged Patient Education/Counseling: Need For Follow Up Family Education/Counseling: No Family Present SEPSIS Sepsis Screen Physician Orders Chest Xray 1 View (02/06/25 02:40) BIPAP (02/06/25 02:46) Abg W/ Co-Ox (02/06/25 02:46) Blood Culture (02/06/25 04:03) Vital Signs Date Time Temp Pulse Resp B/P (MAP) Pulse Ox O2 Delivery O2 Flow Rate FiO2 02/06/25 04:57 103/56 02/06/25 04:53 112 02/06/25 04:40 99.3 123 27 110/70 98 40 99.3 02/06/25 04:40 180 02/06/25 04:15 123 110/70 98 Facial BiPAP Mask 40 02/06/25 04:04 125 30 96 Bi-Pap+ 40 40 02/06/25 04:00 132 02/06/25 03:39 133 02/06/25 02:59 99.3 136 26 129/105 (113) 78 99.3 02/06/25 02:55 129/87 Facial BiPAP Mask 40 02/06/25 02:48 127/97 02/06/25 02:47 98 Bi-Pap+ 20 100 100 02/06/25 02:47 99.3 131 26 131/83 (99) 98 99.3 Laboratory Tests Test 02/06/25 02:43 02/06/25 04:19 White Blood Count 14.6 10^3/uL (4.4-10.8) H Lactic Acid Level 3.2 mmol/L (0.4-2.0) *H Departure 1 Departure Time of Disposition: 03:59 Impression: Primary Impression: Acute exacerbation of congestive heart failure Additional Impressions: Acute respiratory failure Methamphetamine abuse Disposition: ADMITTED INPATIENT Condition: Guarded Comments MDM: 44-year-old male with a history of CHF presents to the emergency department with shortness of breath and respiratory distress Patient placed on BiPAP on arrival Patient continued to be tachypneic, tachycardic and in distress Discussed with the patient benefits of intubation, he repeatedly refuses intubation During the ED observation patient went into episode of suspected SVT at a rate of 180, resolved with 15mg Cardizem bolus Patient admitted to hospitalist service for further treatment, evaluation and monitoring. Extensive evaluation was performed in attempt to identify or rule out: (See differential diagnosis section) The following tests were ordered, and results were reviewed by me and discussed with patient: (See diagnostic results section) The following test were independently interpreted by me: EKG I reviewed and agreed with the following test results read by other providers: Chest x-ray I reviewed the following notes from the pt's past medical encounters: N/A Additional information was gathered from interviewing the following independent historians: EMS personnel Discussion of management or test interpretation with external physician/other qualified health geriatric care manager: N/A Addressed an acute or chronic illness that poses a threat to life or bodily function: Congestive heart failure exacerbation, acute respiratory failure Decision regarding hospitalization or escalation of hospital level of care: Risk and benefits of admission for further treatment of patient's condition was considered. Due to patient's current clinical condition, high risk of decline and poor outcome if discharged and need for further inpatient management and monitoring, patient will be admitted to the hospital. Drug therapy requiring intensive monitoring for toxicity: IV Lasix , IV Cardizem Parenteral controlled substances: IV Versed Decision regarding elective major surgery with identified patient or procedure risk factors: N/A Decision regarding emergency major surgery: N/A Decision not to resuscitate or to de-escalate care because of poor prognosis: N/A Diagnosis or treatment significantly limited by social determinants of health: N/A Critical Care Note Critical Care Time?: Yes (45 min-critical care time only) Critical care comment: Due to a high probability of clinically significant, life threatening deterioration, the patient required my highest level of preparedness to intervene emergently and I personally spent this critical care time directly and personally managing the patient. This critical care time included obtaining a history; examining the patient; pulse oximetry; ordering and review of studies; arranging urgent treatment with development of a management plan; evaluation of patient's response to treatment; frequent reassessment; and, discussions with other providers. This critical care time was performed to assess and manage the high probability of imminent, life-threatening deterioration that could result in multi-organ failure. It was exclusive of separately billable procedures and treating other patients and teaching time. Please see my other sections and the rest of the note for further information on patient assessment and treatment. Stability Stability form required: No Heart Score Heart Score: Heart Score Response (Comments) Value History N/A 0 EKG N/A 0 Age N/A 0 Risk Factors N/A 0 Troponin N/A 0 Total 0 I personally scribed for LAY JEFFERSON MD ([email or web address]) on 02/06/25 at 03:01. Electronically submitted by Shalonda Mobley ([email or web address]). I personally scribed for LAY JEFFERSON MD ([email or web address]) on 02/06/25 at 04:17. Electronically submitted by Shalonda Mobley ([email or web address]). LAY JEFFERSON MD Feb 06, 2025 03:01
[2025-02-06 03:13] LABS: Albumin 3.7 g/dL (3.2-4.8); Alkaline Phosphatase 94 U/L (46-116); Anion Gap 10 (5-15); BUN/Creatinine Ratio 12.6 (10.0-20.0); Bilirubin, Total 1.2 mg/dL (0.2-1.0); Carbon Dioxide 21 mmol/L (20-31); Chloride 105 mmol/L (98-107); Potassium 3.6 mmol/L (3.5-5.1); Total Protein 5.9 g/dL (5.7-8.2)
[2025-02-06 03:15] LABS: Alanine Aminotransferase 140 U/L (7-40); Blood Urea Nitrogen 24 mg/dL (9-23); Calcium 8.4 mg/dL (8.7-10.4); Glucose 157 mg/dL (74-106); Sodium 136 mmol/L (136-145)
[2025-02-06 03:20] LABS: Base Excess -3.9 mmol/L (-2.0-3.0)
[2025-02-06] MEDS: MIDAZOLAM HCL 2MG/2ML 2ml VIAL (1mg/ml) IV ONE (03:24)
[2025-02-06] MEDS: NITROGLYCERIN 2% OINT 1GM PKG TD ONE (03:30)
--- NOTE | 2025-02-06 03:43 | DVH ---
CHEST RADIOGRAPH Indication: sob Technique: Single frontal view of the chest was obtained COMPARISON: XY CHEST PORTABLE on DOS: 01/18/25 FINDINGS: Lines and Tubes: None Lungs: Clear Pleura: No effusion. No pneumothorax. Cardiomediastinal contours: Cardiomegaly. Bones: Unremarkable IMPRESSION: 1. Cardiomegaly.
[2025-02-06 03:54] LABS: Urine Protein, UAD Negative (Negative)
[2025-02-06] MEDS: LEVALBUTEROL HCL 1.25 MG/3 ML NEB NEB ONE (04:11)
[2025-02-06] MEDS: dilTIAZem 25 MG/5 ML VIAL IV ONE ×2 (04:56→04:59)
[2025-02-06] MEDS: FUROSEMIDE 20 MG/2 ML VIAL IV ONE (04:57)
[2025-02-06] MEDS: SODIUM CHLORIDE 0.9% 250 ML IV ONE (04:57)
[2025-02-06] MEDS ORDERED: ONDANSETRON HCL 4 MG/2 ML VIAL IV PRN (05:00)
[2025-02-06] MEDS ORDERED: NITROGLYCERIN 0.4 MG SL TAB SL PRN (05:00)
[2025-02-06] MEDS ORDERED: LABETALOL HCL 20 MG/4 ML VL IV PRN (05:00)
[2025-02-06] MEDS ORDERED: LORazepam 2MG/ML-1ML VIAL IV ONE (05:00)
[2025-02-06] MEDS ORDERED: MORPHINE SULFATE INJ 2 MG/ml SYRG IV PRN (05:00)
[2025-02-06 05:05] LABS: Lactic Acid w/Reflex 3.2 mmol/L (0.4-2.0)
--- NOTE | 2025-02-06 05:06 | DVHHP2 ---
History of Present Illness Reason for Visit: Shortness of breaths History of Present Illness 44-year-old male presents for evaluation of shortness for breath. Patient reports shortness for breath ongoing for the past three days with associated chest pressure and nonproductive cough. She also states using methamphetamine yesterday. Reports lower extremity swelling. States running out of his Lasix. Denies fever or chills. No other acute complaints. Past Medical History CHF, dyslipidemia, hypertension Past Surgical History Denies Family History Noncontributory Smoke: No ALCOHOL: occassional Drugs: Marijuana, Other (Methamphetamine) Review of Systems Review of Systems Review of systems are currently negative otherwise addressed in HPI. Allergies: Coded Allergies: NO KNOWN ALLERGIES (Unverified , 07/14/24) Medications Current Medications Medications Dose Ordered Sig/Pravin Route Start Time Stop Time Status Last Admin Dose Admin Lorazepam 0.5 mg PRN PRN IV 02/06/25 05:00 UNV Exam Vital Signs Vital Signs Date Time Temp Pulse Resp B/P (MAP) Pulse Ox O2 Delivery O2 Flow Rate FiO2 02/06/25 04:57 103/56 02/06/25 04:53 112 02/06/25 04:40 99.3 27 98 40 99.3 02/06/25 04:15 Facial BiPAP Mask 02/06/25 02:47 20 Exam Gen: 44-year-old male in moderate distress Skin: Warm, dry, normal color and texture, no rash. HEENT: Normocephalic atraumatic, mucous membranes moist and pink. Neck: Cervical and supraclavicular nodes normal without enlargement, trachea is midline, thyroid gland is normal without masses. Pulmonary: Bilateral rhonchi Cardiac: Sinus tachycardia Abdomen: Soft, nontender, nondistended, bowel sounds present all 4 quadrants, no guarding, no rigidity, no organomegaly. Extremities: No cyanosis, clubbing, no edema Neuro: Cranial nerves II through XII grossly intact, normal affect and speech, no focal motor deficits. Labs/Xrays ORDERING PHYSICIAN: GATITO SOLOMON PROCEDURE(s): ECIDC - ECHO 2D MODE CARDIAC DOP REASON: chf ORDER NUMBER(s): [id number], ACCESSION NUMBER(s): [id number] APPROVED REPORT EXAM: Two-dimensional and M-mode echocardiogram with Doppler and color Doppler. Blood Pressure: 140/60 mmHg INDICATION chf RISK FACTORS Height: 5'9, Weight: 207 DIMENSIONS LVDd 6.8 (3.8-5.7cm) LA (2D) 5.5 (1.9-4.0cm) Aortic Root 3.3 (2.0- 3.7cm) LVDs 6.3 (2.5-4.0cm) LA (MM) (1.9-4.0cm) Aortic Cusp Exc 3.1 (1.5- 2.0cm) EF (%) 7.0 (55-70%) Rt. Atrium 4.4 (1.9-4.0cm) Asc. Aorta 3.1 cm IVSd 0.8 (0.7-1.1cm) RV (D) 4.3 (1.8-2.4cm) PWd 1.1 (0.7-1.1cm) Mitral Valve Mitral Mitral Stenosis E wave 1.01m/s MV Mean GR. mmHg A wave 0.37m/s MV Peak GR. 68mmHg E/A ratio 2.7 2D MVA cm2 DECEL Time 96ms PRESS 1/2 Time ms Aortic Valve Aortic Valve Aortic Stenosis V1 0.49m/s AO Mean GR. mmHg V2 0.78m/s AO Peak GR. 2mmHg LVOT Diameter 2.0 (1.8-2.4cm) Doppler VICKY 1.97cm2 Tricuspid Valve TR Velocity 3.09m/s RVSP 57mmHg Conclusion REMARKABLY DILATED ALL CARDIAC CHAMBERS LV EF IS ONLY 7% NORMAL VALVES SEVEE MR AND TR CRITICAL PULMONARY HYPERTENSION RVSP IS 57 MM OF HG AND IS VERY HIGH NO EFFUSION STUDY DIAGNOSTIC OF END STAGE DILATED CARDIOMYOPATHY ORDERING PHYSICIAN: ROYA PAULINO PROCEDURE(s): CXR1 - CHEST XRAY 1 VIEW REASON: sob ORDER NUMBER(s): [id number], ACCESSION NUMBER(s): [id number] CHEST RADIOGRAPH Indication: sob Technique: Single frontal view of the chest was obtained COMPARISON: XY CHEST PORTABLE on DOS: 01/18/25 FINDINGS: Lines and Tubes: None Lungs: Clear Pleura: No effusion. No pneumothorax. Cardiomediastinal contours: Cardiomegaly. Bones: Unremarkable IMPRESSION: 1. Cardiomegaly. ATED BY: GLENN PANDYA MD Labs Test 02/06/25 04:19 02/06/25 03:38 02/06/25 03:32 02/06/25 02:50 Range/Units Urine Color Light-yellow Yellow Urine Clarity Clear Clear Urine pH 5.0 5.0-9.0 Urine Specific [place] 1.008 1.001-1.035 Urine Protein Negative Negative Urine Ketones Negative Negative Urine Blood Negative Negative /uL Urine Nitrite Negative Negative Urine Bilirubin Negative Negative Urine Urobilinogen Normal Negative mg/dL Urine Leukocyte Esterase Negative Negative /uL Urine RBC None seen 0 - 3 /hpf Urine Microscopic WBC < 1 0-3 /HPF Urine Squamous Epithelial Cells None seen <5 /hpf Urine Bacteria None seen None Seen /hpf Urine Glucose Normal Normal mg/dL Troponin I High Sensitivity 85 *H </=54 ng/L Blood Gas Specimen Type Arterial Blood Gas Sample Site Left radial Blood Gas Patient Temperature 37.0 Arterial Blood Date Drawn [id number] Arterial Blood pH 7.459 H 7.350-7.450 Arterial Blood Partial Pressure CO2 26.3 L 35.0-48.0 mmHg Arterial Blood Partial Pressure O2 77.0 L 83.0-108.0 mmHg Arterial Blood HCO3 18.2 L 21.0-28.0 mmol/L Arterial Blood Oxygen Saturation 95.4 94.0-98.0 % Arterial Blood Base Excess -3.9 L -2.0-3.0 mmol/L Arterial Blood Oxyhemoglobin 94.0 94.0-98.0 % Arterial Blood Carboxyhemoglobin 1.0 0.5-1.5 % Arterial Blood Methemoglobin 0.5 0.0-1.5 % Demond Test Modified Blood Gas Total Hemoglobin 14.50 13.5-17.5 g/dL Blood Gas Set Respiration Rate 12.0 Blood Gas Modality Mask - bipap FiO2 % 30.0 Blood Gas EPAP 6 Blood Gas IPAP 12 Test 02/06/25 02:43 Range/Units White Blood Count 14.6 H 4.4-10.8 10^3/uL Red Blood Count 4.37 L 4.5-5.90 10^6/uL Hemoglobin 13.9 13.5-17.5 g/dL Hematocrit 43.8 41.0-53.0 % Mean Corpuscular Volume 100.2 H 80.0-100.0 fL Mean Corpuscular Hemoglobin 31.8 28.0-32.0 pg Mean Corpuscular Hemoglobin Concent 31.8 L 32.0-36.0 g/dL Red Cell Distribution Width 15.4 H 11.8-14.3 % Platelet Count 236 140-450 10^3/uL Mean Platelet Volume 9.0 6.9-10.8 fL Neutrophils (%) (Auto) 91.0 H 37.0-80.0 % Lymphocytes (%) (Auto) 3.4 L 10.0-50.0 % Monocytes (%) (Auto) 5.1 0.0-12.0 % Eosinophils (%) (Auto) 0.1 0.0-7.0 % Basophils (%) (Auto) 0.4 0.0-2.0 % Neutrophils # (Auto) 13.3 H 1.6-8.6 10 ^3/uL Lymphocytes # (Auto) 0.5 0.4-5.4 10 ^3/uL Monocytes # (Auto) 0.8 0-1.3 10 ^3/uL Eosinophils # (Auto) 0 0-0.8 10 ^3/uL Basophils # (Auto) 0.1 0-0.2 10 ^3/uL Nucleated Red Blood Cells 0.0 % Sodium Level 136 136-145 mmol/L Potassium Level 3.6 3.5-5.1 mmol/L Chloride Level 105 98-107 mmol/L Carbon Dioxide Level 21 20-31 mmol/L Anion Gap 10 5-15 Blood Urea Nitrogen 24 H 9-23 mg/dL Creatinine 1.90 H 0.700-1.30 mg/dL Glomerular Filtration Rate Calc 44 >90 mL/min BUN/Creatinine Ratio 12.6 10.0-20.0 Serum Glucose 157 H 74-106 mg/dL Calcium Level 8.4 L 8.7-10.4 mg/dL Total Bilirubin 1.2 H 0.2-1.0 mg/dL Aspartate Amino Transferase (AST) 67 H 13-40 U/L Alanine Aminotransferase (ALT) 140 H 7-40 U/L Alkaline Phosphatase 94 46-116 U/L B-Type Natriuretic Peptide 2319.83 0-100 pg/mL Total Protein 5.9 5.7-8.2 g/dL Albumin 3.7 3.2-4.8 g/dL SEPSIS Sepsis Screen Date sepsis recognized/suspect: Feb 06, 2025 Time Sepsis recognized/suspect: 414 Recent Procedure: No On Antibiotic Therapy: No Respiratory Rate >20: Yes Heart Rate >90: Yes Temp<36 C (96.8 F) or >38.3 C: No SBP <90 or MAP <65 mmHG: No New Acute Mental Status Change: No Is the patient on CPAP, BIPAP,: Yes Physician Orders Chest Xray 1 View (02/06/25 02:40) Troponin-I Hs (02/06/25 05:40) BIPAP (02/06/25 02:46) Abg W/ Co-Ox (02/06/25 02:46) Electrocardigram (02/06/25 03:44) Drug Screen (02/06/25 04:00) Lactic Acid W/ Reflex Order (02/06/25 04:03) Blood Culture (02/06/25 04:03) Lorazepam 2mg/Ml Inj (Ativan Inj) (02/06/25 05:00) Electrocardigram (02/06/25 04:58) Electrocardigram (02/06/25 05:58) Furosemide Injection (Lasix Injection) (02/06/25 06:00) (Nf) Xarelto (02/06/25 10:00) Empagliflozin (Jardiance) (02/06/25 10:00) Metoprolol Tartrate Tablet (Lopressor Ta (02/06/25 10:00) Labetalol Hcl (Labetalol Hcl) (02/06/25 05:00) * Cardiology Consult (02/06/25 04:57) Admit (02/06/25 04:57) Ondansetron Hcl (Zofran) (02/06/25 05:00) Complete Blood Count (02/07/25 04:00) Comprehensive Metabolic Panel (02/07/25 04:00) Cardiac Diet-2gna,Lofat,Lochol (02/06/25 Breakfast) Condition: Critical (02/06/25 04:57) Acetaminophen Tablet (Tylenol Tablet) (02/06/25 05:00) Bedrest With Bathroom Privileg (02/06/25 04:57) Nitroglycerin Sublingual (Ntrostat Subli (02/06/25 05:00) Morphine Sulfate Injection (02/06/25 05:00) Stat Ekg For Chest Pain (02/06/25 04:57) Notify Of Changes From Base (02/06/25 04:57) Orthopaedic Technologist For 24 Hours (02/06/25 04:57) Emergency Dysrhythmia Protocol (02/06/25 04:57) Rhythm Strips Once Every Shift (02/06/25 04:57) Oxygen By Nasal Cannula (02/06/25 04:57) Vital Signs Date Time Temp Pulse Resp B/P (MAP) Pulse Ox O2 Delivery O2 Flow Rate FiO2 02/06/25 04:57 103/56 02/06/25 04:53 112 02/06/25 04:40 99.3 123 27 110/70 98 40 99.3 02/06/25 04:40 180 02/06/25 04:15 123 110/70 98 Facial BiPAP Mask 40 02/06/25 04:04 125 30 96 Bi-Pap+ 40 40 02/06/25 04:00 132 02/06/25 03:39 133 02/06/25 02:59 99.3 136 26 129/105 (113) 78 99.3 02/06/25 02:55 129/87 Facial BiPAP Mask 40 02/06/25 02:48 127/97 02/06/25 02:47 98 Bi-Pap+ 20 100 100 02/06/25 02:47 99.3 131 26 131/83 (99) 98 99.3 Laboratory Tests Test 02/06/25 02:43 02/06/25 04:19 White Blood Count 14.6 10^3/uL (4.4-10.8) H Lactic Acid Level Pending Medications Medications Dose Ordered Sig/Pravin Route Start Time Stop Time Status Last Admin Dose Admin Albuterol 5 mg ONCE ONCE NEB 02/06/25 02:45 02/06/25 02:46 DC 02/06/25 02:45 5 MG Diltiazem HCl 15 mg ONCE ONCE IV 02/06/25 04:45 02/06/25 04:46 DC 02/06/25 04:59 15 MG Furosemide 20 mg ONCE ONCE IV 02/06/25 04:00 02/06/25 04:01 DC 02/06/25 04:57 20 MG Furosemide 40 mg ONCE ONCE IV 02/06/25 02:45 02/06/25 02:46 DC 02/06/25 02:48 40 MG Ipratropium [place] 0.5 mg ONCE ONCE NEB 02/06/25 02:45 02/06/25 02:46 DC 02/06/25 02:45 0.5 MG Ipratropium [place] 0.5 mg ONCE ONCE NEB 02/06/25 04:00 02/06/25 04:01 DC 02/06/25 04:11 0.5 MG Levalbuterol HCl 0.625 mg ONCE ONCE NEB 02/06/25 03:30 02/06/25 04:04 DC 02/06/25 04:11 0.625 MG Midazolam HCl 1 mg ONCE ONCE IV 02/06/25 03:15 02/06/25 03:16 DC 02/06/25 03:24 1 MG Assessment/Plan Assessment/Plan Assessment Acute on chronic respiratory failure CHF exacerbation, ejection fraction less than 10% Transaminitis,? Venous congestion Elevated troponin, demand ischemia Plan Admit the patient to [facility] to the hospitalist IV Lasix Resume home medications Continue treatment per orders. Total critical care time excluding procedures performed this 50 minutes. Plan discussed with: Patient My Orders Orders - DANN ARCHULETA Procedure Category Date Status Time Furosemide Injection PHA 02/06/25 Transmitted (Lasix Injection) 06:00 (Nf) Xarelto PHA 02/06/25 Transmitted 10:00 Empagliflozin PHA 02/06/25 Transmitted (Jardiance) 10:00 Metoprolol Tartrate PHA 02/06/25 Transmitted Tablet (Lopressor Ta 10:00 Labetalol Hcl PHA 02/06/25 Transmitted (Labetalol Hcl) 05:00 * Cardiology Consult CONS 02/06/25 Transmitted 04:57 Admit ADMIT 02/06/25 Transmitted 04:57 Ondansetron Hcl PHA 02/06/25 Transmitted (Zofran) 05:00 Complete Blood Count LAB 02/07/25 Verified 04:00 Comprehensive LAB 02/07/25 Verified Metabolic Panel 04:00 Cardiac DIET 02/06/25 Transmitted Diet-2gna,Lofat,Lochol Breakfast Condition: Critical ZAID 02/06/25 Transmitted 04:57 Acetaminophen Tablet PHA 02/06/25 Transmitted (Tylenol Tablet) 05:00 Bedrest With Bathroom [facility] 02/06/25 Transmitted Privileg 04:57 Nitroglycerin [facility] 02/06/25 Transmitted Sublingual (Ntrostat 05:00 Morphine Sulfate [facility] 02/06/25 Transmitted Injection 05:00 Stat Ekg For Chest [facility] 02/06/25 Transmitted Pain 04:57 Notify Md Of Changes [facility] 02/06/25 Transmitted From Base 04:57 Orthopaedic Technologist For [facility] 02/06/25 Transmitted 24 Hours 04:57 Emergency Dysrhythmia [facility] 02/06/25 Transmitted Protocol 04:57 Rhythm Strips Once [facility] 02/06/25 Transmitted Every Shift 04:57 Oxygen By Nasal 02/06/25 Transmitted Cannula 04:57 Date of Service: Feb 06, 2025 Billing Provider: DANN ARHCULETA Common Visit Codes: [id number] CARE 30-74 MIN DANN ARCHULETA Feb 06, 2025 05:06
[2025-02-06] MEDS ORDERED: FUROSEMIDE 20 MG/2 ML VIAL IV SCH (06:00)
[2025-02-06] MEDS: FUROSEMIDE 20 MG/2 ML VIAL IV SCH (06:00)
--- NOTE | 2025-02-06 06:23 | ECG ---
[facility] Test Date: 2025-02-06 Test Time: 04:40:14 Pat Name: AMBER MERIDIAN Department: ED Room: 0277T Gender: M Can Repairer: AUGUST : 1980 Requested By: LAY JEFFERSON Order Number: [id number] Reading MD: Shade Pizano Measurements Intervals [place] Rate: 180 P: 0 NM: 74 QRS: 110 QRSD: 147 T: -59 QT: 290 QTc: 503 Interpretive Statements supraventricular tachycardia. Consider AVNRT Electronically Signed On 02-13-2025 15:29:22 PDT by Shade Pizano Please click the below link to view image of tracing.
--- NOTE | 2025-02-06 06:23 | ECG ---
[facility] Test Date: 2025-02-06 Test Time: 04:53:54 Pat Name: AMBER STRANGE Department: ED Room: 0277T Gender: M Manager Monitoring: TIFFANY : 1980 Requested By: LAY JEFFERSON Order Number: [id number] Reading MD: Shade Pizano Measurements Intervals [place] Rate: 112 P: 80 AR: 186 QRS: 80 QRSD: 94 T: 258 QT: 379 QTc: 518 Interpretive Statements Sinus tachycardia Left atrial enlargement Repol abnrm suggests ischemia, anterolateral Prolonged QT interval Electronically Signed On 02-13-2025 15:29:38 PDT by Shade Pizano Please click the below link to view image of tracing.
--- NOTE | 2025-02-06 06:23 | ECG ---
[facility] Test Date: 2025-02-06 Test Time: 03:39:25 Pat Name: AMBER LANESBOROUGH Department: ED Room: 0277T Gender: M Last Turner: TIFFANY : 1980 Requested By: LAY JEFFERSON Order Number: [id number] Reading MD: Shade Pizano Measurements Intervals [place] Rate: 133 P: 80 TX: 193 QRS: 85 QRSD: 96 T: -83 QT: 283 QTc: 421 Interpretive Statements Sinus tachycardia Borderline prolonged [place] interval Left atrial enlargement Nonspecific T abnormalities, inferior leads Electronically Signed On 02-13-2025 15:27:21 PDT by Shade Pizano Please click the below link to view image of tracing.
[2025-02-06] MEDS: METOPROLOL TARTRATE 25 MG TAB PO SCH (08:11)
[2025-02-06] MEDS: EMPAGLIFLOZIN 10 MG TAB PO SCH (08:25)
[2025-02-06] MEDS: RIVAROXABAN 20 MG TAB PO SCH (08:26)
[2025-02-06 08:34] LABS: Amphetamine Screen, Urine Pos (NEGATIVE); Barbiturate Scree,Urine Neg (NEGATIVE); Opiate Scree,Urine Neg (NEGATIVE); Phencyclidine Screen, Urine Neg (NEGATIVE)
[2025-02-06 08:35] LABS: Benzodiazephine Screen, Urine Neg (NEGATIVE); Cannabinoid Screen, Urine Neg (NEGATIVE); Cocaine Screen, Urine Neg (NEGATIVE)
[2025-02-06] MEDS: NOREPINEPHRINE 8 MG/250ML KIT 250 ML IV SCH (12:15)
[2025-02-06] MEDS: NOREPINEPHRINE 8 MG/250ML KIT 250 ML IV ONE (12:29)
--- NOTE | 2025-02-06 12:36 | DVHCONRES ---
Date Seen: Feb 06, 2025 Resident Creating Document: PHU VENCES RESDIENT History of Present Illness 44-year-old male with past medical history of methamphetamine induced end-stage dilated cardiomyopathy, recurrent DVT with pulmonary emboli, dyslipidemia came to the hospital due to shortness of breath since 3 days. Per patient, he ran out of medicine 5 days back and has been using methamphetamine (last smoke was 1 day before admission). He also reports of chest discomfort, and cough. He denies fever, palpitation, or any recent sick contacts/chest trauma. PMHx: methamphetamine induced end-stage dilated cardiomyopathy, recurrent DVT with pulmonary emboli, dyslipidemia Social history: Smokes cigarettes and methamphetamine Home medication: Xarelto 20 mg daily, Jardiance 10 mg, Lasix 40 mg twice daily, Lopressor 25 mg, with the patient ran out of medicine 5 days back. Allergic history: No known allergy Patient seen and examined at bedside. Patient is still complaining of mild shortness of breath. Family History: Patient reports no known family medical history. Allergies: Coded Allergies: NO KNOWN ALLERGIES (Unverified , 07/14/24) Home Meds Active Scripts Empagliflozin (Jardiance) 10 Mg Tab, 10 MG PO DAILY for 60 Days, #60 TAB Prov:CATALINA SHIPLEY MD 01/20/25 Potassium Chloride (Klor-Con M10) 10 Meq Tab, 1 TAB PO DAILY, #30 TAB Prov:JONES TORREZ MD 09/06/24 Metoprolol Tartrate (Lopressor) 25 Mg Tb, 25 MG PO BID, #60 TAB Prov:JONES TORREZ MD 09/06/24 Furosemide (Furosemide) 40 Mg Tab, 1 TAB PO BID, #60 TAB Prov:JONES TORREZ MD 09/06/24 Rivaroxaban (Xarelto Tablet) 20 Mg Tb, 1 TAB PO DAILY for 60 Days, #60 TAB Prov:JONES TORREZ MD 09/06/24 Current Medications Current Medications Medications (Trade) Dose Ordered Sig/Pravin Route PRN Reason Start Time Stop Time Status Last Admin Furosemide (Lasix Injection) 20 mg BIDD IV 02/06/25 06:00 02/06/25 05:08 DC Rivaroxaban (Xarelto Tablet) 20 mg DAILY PO 02/06/25 10:00 02/06/25 08:26 Empaglifozin (Jardiance) 10 mg DAILY PO 02/06/25 10:00 02/06/25 08:25 Metoprolol Tartrate (Lopressor Tablet) 25 mg BID PO 02/06/25 10:00 02/06/25 08:11 Labetalol HCl (Labetalol HCl) 10 mg Q4HPRN PRN IV SBP>150, HR>110 02/06/25 05:00 Ondansetron HCl (Zofran) 4 mg Q4HP PRN IV NAUSEA / VOMITING 02/06/25 05:00 Acetaminophen (Tylenol Tablet) 650 mg Q6HP PRN PO PAIN SCALE 1-3 OR TEMP>100.4 02/06/25 05:00 Nitroglycerin (Ntrostat Sublingual) 0.4 mg Q5MINP PRN SL FOR CHEST PAIN 02/06/25 05:00 Morphine Sulfate 2 mg Q30M PRN IV FOR CHEST PAIN 02/06/25 05:00 Albuterol (Ventolin Medneb) 2.5 mg Q6HPRN PRN NEB SHORTNESS OF BREATH 02/06/25 05:15 Furosemide (Lasix Injection) 40 mg BIDD IV 02/06/25 05:15 02/06/25 09:51 DC 02/06/25 06:04 Furosemide (Lasix Injection) 80 mg DAILY IV 02/07/25 10:00 Vital Signs Vital Signs Date Time Temp Pulse Resp B/P (MAP) Pulse Ox O2 Delivery O2 Flow Rate FiO2 02/06/25 10:06 95/65 02/06/25 09:36 15 93 Hi-Flow NC 6 44 44 02/06/25 09:36 100 02/06/25 05:14 98.6 98.6 Physical Exam General Appearance: Alert, Oriented X3, Cooperative, No acute distress HEENT: Atraumatic, PERRLA, EOMI, Mucous membrane moist/pink Respiratory: Bilateral crackles Cardiovascular: Regular rate, Normal S1, Normal S2, No murmurs, no chest wall tenderness Abdominal: Normal bowel sounds, Soft, No tenderness, No hepatospenomegaly, No masses Extremities: Grade 3-4 pitting pedal edema Skin: No rashes, No breakdown, No significant lesion Neuro: Normal gait, Normal speech, Strength at 5/5 X4 ext, Normal tone, Sensation intact, Cranial nerves 3-12 NL, Reflexes 2+ Psych/Mental Status: Mental status NL, Mood NL Labs/Diagnostic Data Labs Test 02/06/25 06:30 02/06/25 05:40 02/06/25 03:38 02/06/25 02:50 Range/Units Lactic Acid Level 1.5 0.4-2.0 mmol/L Troponin I High Sensitivity 91 *H </=54 ng/L Urine Color Light-yellow Yellow Urine Clarity Clear Clear Urine pH 5.0 5.0-9.0 Urine Specific [place] 1.008 1.001-1.035 Urine Protein Negative Negative Urine Ketones Negative Negative Urine Blood Negative Negative /uL Urine Nitrite Negative Negative Urine Bilirubin Negative Negative Urine Urobilinogen Normal Negative mg/dL Urine Leukocyte Esterase Negative Negative /uL Urine RBC None seen 0 - 3 /hpf Urine Microscopic WBC < 1 0-3 /HPF Urine Squamous Epithelial Cells None seen <5 /hpf Urine Bacteria None seen None Seen /hpf Urine Glucose Normal Normal mg/dL Urine Opiates Screen Neg NEGATIVE Urine Fentanyl Screen Neg NEGATIVE Urine Barbiturates Screen Neg NEGATIVE Urine Phencyclidine Screen Neg NEGATIVE Urine Amphetamines Screen Pos NEGATIVE Urine Benzodiazepines Screen Neg NEGATIVE Urine Cocaine Screen Neg NEGATIVE Urine Cannabinoids Screen Neg NEGATIVE Blood Gas Specimen Type Arterial Blood Gas Sample Site Left radial Blood Gas Patient Temperature 37.0 Arterial Blood Date Drawn [id number] Arterial Blood pH 7.459 H 7.350-7.450 Arterial Blood Partial Pressure CO2 26.3 L 35.0-48.0 mmHg Arterial Blood Partial Pressure O2 77.0 L 83.0-108.0 mmHg Arterial Blood HCO3 18.2 L 21.0-28.0 mmol/L Arterial Blood Oxygen Saturation 95.4 94.0-98.0 % Arterial Blood Base Excess -3.9 L -2.0-3.0 mmol/L Arterial Blood Oxyhemoglobin 94.0 94.0-98.0 % Arterial Blood Carboxyhemoglobin 1.0 0.5-1.5 % Arterial Blood Methemoglobin 0.5 0.0-1.5 % Demond Test Modified Blood Gas Total Hemoglobin 14.50 13.5-17.5 g/dL Blood Gas Set Respiration Rate 12.0 Blood Gas Modality Mask - bipap FiO2 % 30.0 Blood Gas EPAP 6 Blood Gas IPAP 12 Test 02/06/25 02:43 Range/Units White Blood Count 14.6 H 4.4-10.8 10^3/uL Red Blood Count 4.37 L 4.5-5.90 10^6/uL Hemoglobin 13.9 13.5-17.5 g/dL Hematocrit 43.8 41.0-53.0 % Mean Corpuscular Volume 100.2 H 80.0-100.0 fL Mean Corpuscular Hemoglobin 31.8 28.0-32.0 pg Mean Corpuscular Hemoglobin Concent 31.8 L 32.0-36.0 g/dL Red Cell Distribution Width 15.4 H 11.8-14.3 % Platelet Count 236 140-450 10^3/uL Mean Platelet Volume 9.0 6.9-10.8 fL Neutrophils (%) (Auto) 91.0 H 37.0-80.0 % Lymphocytes (%) (Auto) 3.4 L 10.0-50.0 % Monocytes (%) (Auto) 5.1 0.0-12.0 % Eosinophils (%) (Auto) 0.1 0.0-7.0 % Basophils (%) (Auto) 0.4 0.0-2.0 % Neutrophils # (Auto) 13.3 H 1.6-8.6 10 ^3/uL Lymphocytes # (Auto) 0.5 0.4-5.4 10 ^3/uL Monocytes # (Auto) 0.8 0-1.3 10 ^3/uL Eosinophils # (Auto) 0 0-0.8 10 ^3/uL Basophils # (Auto) 0.1 0-0.2 10 ^3/uL Nucleated Red Blood Cells 0.0 % Sodium Level 136 136-145 mmol/L Potassium Level 3.6 3.5-5.1 mmol/L Chloride Level 105 98-107 mmol/L Carbon Dioxide Level 21 20-31 mmol/L Anion Gap 10 5-15 Blood Urea Nitrogen 24 H 9-23 mg/dL Creatinine 1.90 H 0.700-1.30 mg/dL Glomerular Filtration Rate Calc 44 >90 mL/min BUN/Creatinine Ratio 12.6 10.0-20.0 Serum Glucose 157 H 74-106 mg/dL Calcium Level 8.4 L 8.7-10.4 mg/dL Total Bilirubin 1.2 H 0.2-1.0 mg/dL Aspartate Amino Transferase (AST) 67 H 13-40 U/L Alanine Aminotransferase (ALT) 140 H 7-40 U/L Alkaline Phosphatase 94 46-116 U/L B-Type Natriuretic Peptide 2319.83 0-100 pg/mL Total Protein 5.9 5.7-8.2 g/dL Albumin 3.7 3.2-4.8 g/dL Assessment Acute hypoxic respiratory failure, likely due to CHF exacerbation Acute on chronic systolic heart failure, due to medication and adherence/methamphetamine use disorder Volume overload, due to systolic heart failure Methamphetamine use disorder ORLY, on CKD, likely VMN Severe mitral regurgitation Severe tricuspid regurgitation Pulmonary hypertension History of DVT and pulmonary emboli Dyslipidemia Current smoker Obesity SVT, currently sinus rhythm, at 2 episodes of SVT at hospital 1st episode was reverted with Cardizem and 2nd episode was reverted to Sinus rhythm spont aneously Medication nonadherence * EKGs shows sinus tachycardia with no significant ST or T-wave changes * Trop I is mildly raised at 70s, stable, BNP is raised at 2300 * Echo shows dilated all cardiac chamber, EF 7% with RSVP 57 * Chest x-ray shows cardiomegaly Plan/recommendation sign (Case discussed with Dr. Pizano) * IV diuretic Lasix 80 mg daily * Jardiance 10 mg daily * Metoprolol tartrate 25 mg twice daily * May gradually start Entresto, if patient's hemodynamic status permits * Rest of plan per primary team * We sign of the patient Thank you for giving us the opportunity to take care of your patient. Please call back if you have any question/concern. Plan discussed with: Patient, Other (RN) PHU VENCES Feb 06, 2025 12:36
[2025-02-06] MEDS: SPIRONOLACTONE 25 MG TAB PO ONE (14:01)
--- NOTE | 2025-02-06 15:42 | DVHPNRES ---
Progress Note Date Seen: Feb 06, 2025 Resident Creating Document: KOLBY MOTLEY RESIDENT Medical Necessity Reason Pt with a Central, PICC or Fol: No Subjective Review of Systems 44-year-old male with past medical history of methamphetamine induced end-stage dilated cardiomyopathy, recurrent DVT with pulmonary emboli, dyslipidemia came to the hospital due to shortness of breath since 3 days. Per patient, he ran out of medicine 5 days back and has been using methamphetamine (last smoke was 1 day before admission). He also reports of chest discomfort, and cough. He denies fever, palpitation, or any recent sick contacts/chest trauma. PMHx: methamphetamine induced end-stage dilated cardiomyopathy, recurrent DVT with pulmonary emboli, dyslipidemia Social history: Smokes cigarettes and methamphetamine Home medication: Xarelto 20 mg daily, Jardiance 10 mg, Lasix 40 mg twice daily, Lopressor 25 mg, with the patient ran out of medicine 5 days back. Allergic history: No known allergy The patient was seen and examined on the bedside. He is alert oriented x3 and on high-flow oxygen 6L through oxymizer. Complaint of shortness of breath, tiredness and bilateral leg swelling. Constitutional: No: Fever, Chills, Sweats, Weakness, Malaise, Other Eyes: No: Pain, Vision change, Conjunctivae inflammation, Eyelid inflammation, Other, Redness ENT: No: Ear pain, Ear discharge, Nose pain, Nose discharge, Nose congestion, Mouth pain, Mouth swelling, Throat pain, Throat swelling, Other Respiratory: Shortness of breath, Cough, No Dry,Wheezing, Hemoptysis, Pleuritic Pain, Sputum, Wheezing, Other Cardiovascular: Edema, No: Chest Pain, Palpitations, Orthopnea, Paroxysmal Noc. Dyspnea, Lt Headedness, Other Gastrointestinal: No: Nausea, Vomiting, Abdominal Pain, Diarrhea, Constipation, Melena, Hematochezia, Other Musculoskeletal: No: other, neck pain, shoulder pain, arm pain, back pain, hand pain, leg pain, foot pain Neurological:; No: Weakness, Numbness, Incoordination, Change in speech, Confusion, Seizures Objective vital signs Vital Sign Date Time Temp Pulse Resp B/P (MAP) Pulse Ox O2 Delivery O2 Flow Rate FiO2 02/06/25 13:35 97 02/06/25 13:35 15 93 Hi-Flow NC 6 44 44 02/06/25 10:06 95/65 02/06/25 05:14 98.6 98.6 Total Intake and Output 02/05/25 02/05/25 02/06/25 15:00 23:00 07:00 Output Total 2150 ml Balance -2150 ml medications Current Medications Medications Dose Ordered Sig/Pravin Route Start Time Stop Time Status Last Admin Dose Admin Rivaroxaban 20 mg DAILY PO 02/06/25 10:00 02/06/25 08:26 20 MG Empaglifozin 10 mg DAILY PO 02/06/25 10:00 02/06/25 08:25 10 MG Metoprolol Tartrate 25 mg BID PO 02/06/25 10:00 Hold 02/06/25 08:11 25 MG Ondansetron HCl 4 mg Q4HP PRN IV 02/06/25 05:00 Acetaminophen 650 mg Q6HP PRN PO 02/06/25 05:00 Albuterol 2.5 mg Q6HPRN PRN NEB 02/06/25 05:15 Furosemide 80 mg DAILY IV 02/07/25 10:00 Norepinephrine Bitartrate 250 ml @ 3.75 mls/hr Q24H IV 02/06/25 12:15 Spironolactone 25 mg DAILY PO 02/07/25 10:00 Examination Physical examination: General Appearance: Alert, Oriented X3, Cooperative, mild resp distress HEENT: Atraumatic, PERRLA, EOMI, Mucous membrane moist/pink Respiratory: Bilateral basal crackles. Cardiovascular: Regular rate, Normal S1, Normal S2, No murmurs, no chest wall tenderness Abdominal: Normal bowel sounds, Soft, No tenderness, No hepatospenomegaly, No masses Extremities: Bilateral pedal edema 3+, No clubbing, No cyanosis, No edema, Normal pulses, No tenderness/swelling Skin: No rashes, No breakdown, No significant lesion Neuro: Normal speech, Strength at 5/5 X4 ext, Normal tone, Sensation intact, Cranial nerves 3-12 NL, Reflexes 2+ Psych/Mental Status: Mental status NL, Mood NL laboratory and microbiology Laboratory Tests 02/06/25 02:43 Test 02/06/25 02:43 Range/Units Serum Glucose 157 H 74-106 mg/dL Labs and/or images reviewed: Labs reviewed by me, Image(s) reviewed by me Problem List/Assessment/Plan Problem List/Assessment/Plan Assessment and plan: Sepsis likely due to pneumonia Possible gram positive/gram negative pneumonia Acute hypoxic respiratory failure, likely due to CHF exacerbation Acute on chronic decompensated systolic heart failure, due to medication nonadherence/methamphetamine use disorder Volume overload, due to systolic heart failure Possible NSTEMI type 2 Hyperbilirubinemia with transaminitis likely due to hepatic congestion Severe mitral regurgitation Severe tricuspid regurgitation Pulmonary hypertension History of DVT and pulmonary emboli Dyslipidemia SVT, currently sinus rhythm, at 2 episodes of SVT at hospital 1st episode was reverted with Cardizem and 2nd episode was reverted to Sinus rhythm spontaneously Medication nonadherence * EKGs shows sinus tachycardia with no significant ST or T-wave changes * Trop I is mildly raised at 70s, stable, BNP is raised at 2300 * Echo shows dilated all cardiac chamber, EF 7% with RSVP 57 * Chest x-ray shows cardiomegaly - Patient is on 6 L oxygen through [employer] - IV Lasix 80 mg daily - continue spironolactone 25 mg daily, Jardiance 10 mg daily and Xarelto 20 mg daily. - IV ceftriaxone 1 g daily - cardiology on board - strict I&O ORLY, on possible CKD, likely VMN Possible cradiorenal syndrome - Monitor BMP Currently smoker and methamphetamine abuse disorder - counseled patient regarding cessation of smoking and methamphetamine and discussed about the rehabilitation. DVT prophylaxis - patient is on Xarelto Goal of care discussed with the patient for more than 18 minutes full code Plan discussed with Dr. Escobar Plan discussed with: Patient (RN) Date of Service: Feb 06, 2025 Billing Provider: LISA ESCOBAR MD Common Visit Codes: [id number] INP/OBS CARE(HIGH) KOLBY MOTLEY RESIDENT Feb 06, 2025 15:42 LISA ESCOBAR MD Feb 06, 2025 22:05
[2025-02-06] MEDS: cefTRIAXone 1GM/50ML D5W 50 ML IV ONE (16:15)
--- NOTE | 2025-02-06 18:57 | DVH ---
EXAM: US BILAT LOWER DVT Clinical History: To exclude DVT Comparison: US BILAT LOWER DVT on DOS: 01/18/25, US BILAT LOWER DVT on DOS: 07/14/24 Technique: Duplex Doppler evaluation of the deep venous systems of both lower extremities from the common femora l veins to the popliteal veins including color Doppler and spectral/pulsed waveform analysis was perf ormed. Findings: No visible intraluminal venous thrombus. No evidence of incompressibility or abnormal color or spectr al Doppler flow visualized in the deep bilateral lower extremity veins. Proximal greater saphenous ve ins are grossly unremarkable. Impression: 1. No sonographic evidence of deep venous thrombosis throughout the bilateral lower extremities from the popliteal veins to the common femoral veins.
[2025-02-06] MEDS: ACETAMINOPHEN 325 MG TAB PO PRN (21:09)
[2025-02-06 22:47] LABS: Potassium 3.6 mmol/L (3.5-5.1)
[2025-02-06 22:54] LABS: Magnesium 2.1 mg/dL (1.6-2.6)
[2025-02-06] MEDS: POTASSIUM EFFERVESENT TAB 25 MEQ PO ONE (23:15)
[2025-02-07] VITALS (55 sets, daily range): BP systolic 38–136; BP diastolic 17–85; PULSE 94–122; RESP 14–35; TEMP 97.7–98.9; O2SAT 90–100
[2025-02-07] MEDS: HYDROcodone-ACET 5/325MG TAB PO ONE (00:18)
[2025-02-07] MEDS: METOPROLOL SUCCINATE XL 50 MG TAB PO ONE (01:04)
[2025-02-07] MEDS: ALBUTEROL SULF 2.5 MG/0.5ML(0.5%) NEB SOLN NEB PRN (01:22)
[2025-02-07] MEDS: LORazepam 2MG/ML-1ML VIAL IV ONE (02:00)
[2025-02-07 05:19] LABS: Hematocrit 40.6 % (41.0-53.0); Hemoglobin 13.3 g/dL (13.5-17.5); Mean Corpuscular Hemoglobin 32.3 pg (28.0-32.0); Mean Corpuscular Volume 99.0 fL (80.0-100.0); Nucleated Red Blood Cells % 0.0 %
--- NOTE | 2025-02-07 05:36 | DVH ---
CHEST RADIOGRAPH Indication: PROTOCOL Technique: Single frontal view of the chest was obtained Comparison: XY CHEST XRAY 1 VIEW on DOS: 02/06/25 FINDINGS: Lines and Tubes: None Lungs: No focal consolidation. Pleura: No effusion. No pneumothorax. Cardiomediastinal contours: Cardiomegaly. Bones: No acute osseous abnormality. IMPRESSION: 1. Cardiomegaly. 2. No focal airspace disease.
[2025-02-07 05:44] LABS: Alkaline Phosphatase 89 U/L (46-116); Anion Gap 8 (5-15); BUN/Creatinine Ratio 13.7 (10.0-20.0); Calcium 9.2 mg/dL (8.7-10.4); Carbon Dioxide 28 mmol/L (20-31); Chloride 100 mmol/L (98-107); Magnesium 2.1 mg/dL (1.6-2.6); Potassium 3.8 mmol/L (3.5-5.1); Total Protein 5.8 g/dL (5.7-8.2)
[2025-02-07 05:45] LABS: Albumin 3.6 g/dL (3.2-4.8)
[2025-02-07 05:46] LABS: Bilirubin, Total 1.0 mg/dL (0.2-1.0)
[2025-02-07 05:47] LABS: Alanine Aminotransferase 114 U/L (7-40); Blood Urea Nitrogen 23 mg/dL (9-23); Glucose 127 mg/dL (74-106); Sodium 136 mmol/L (136-145)
[2025-02-07] MEDS ORDERED: VANCOMYCIN PER PHARMACY 0 MG IV SCH (06:30)
--- NOTE | 2025-02-07 06:37 | ECG ---
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
[2025-02-07] MEDS: cefTRIAXone 1GM/50ML D5W 50 ML IV SCH (09:03)
--- NOTE | 2025-02-07 09:17 | DVHPNRES ---
Progress Note Date Seen: Feb 07, 2025 Resident Creating Document: KOLBY MOTLEY RESIDENT Medical Necessity Reason Pt with a Central, PICC or Fol: No Subjective Review of Systems Patient was seen and examined on the bedside. He is alert oriented x3 and on nasal canula 3L saturating 97%. Hemodynamically stable, systolic BP in 100 and heart rate is 100-110. Last night patient had few episodes of SVT and heart rate went up to 180 and spontaneously back to 100-110 without any intervention. Telemetry revealed few episodes of PVC without any ventricular fibrillation. Diuresing well and have negative balance. He mentioned improved shortness of breath, and complaining of left leg pain . Objective vital signs Vital Sign Date Time Temp Pulse Resp B/P (MAP) Pulse Ox O2 Delivery O2 Flow Rate FiO2 02/07/25 08:30 111 24 110/79 (89) 99 02/07/25 08:00 98.2 98.2 02/07/25 07:45 Nasal Cannula 5.0 02/07/25 07:45 40 Total Intake and Output 02/06/25 02/06/25 02/07/25 15:00 23:00 07:00 Intake Total 240 ml Output Total 3000 ml 1375 ml Balance -3000 ml -1135 ml medications Current Medications Medications Dose Ordered Sig/Pravin Route Start Time Stop Time Status Last Admin Dose Admin Rivaroxaban 20 mg DAILY PO 02/06/25 10:00 02/06/25 08:26 20 MG Empaglifozin 10 mg DAILY PO 02/06/25 10:00 02/06/25 08:25 10 MG Ondansetron HCl 4 mg Q4HP PRN IV 02/06/25 05:00 Acetaminophen 650 mg Q6HP PRN PO 02/06/25 05:00 02/06/25 21:09 650 MG Albuterol 2.5 mg Q6HPRN PRN NEB 02/06/25 05:15 02/07/25 01:22 2.5 MG Furosemide 80 mg DAILY IV 02/07/25 10:00 Norepinephrine Bitartrate 250 ml @ 3.75 mls/hr Q24H IV 02/06/25 12:15 Spironolactone 25 mg DAILY PO 02/07/25 10:00 Ceftriaxone Sodium 50 ml @ 100 mls/hr DAILY@09 IV 02/07/25 09:00 02/07/25 09:03 100 MLS/HR Metoprolol Succinate 25 mg DAILY PO 02/07/25 10:00 Vancomycin HCl 0 ml @ 0 mls/hr UD IV 02/07/25 06:30 UNV Examination Physical examination: General Appearance: Alert, Oriented X3, Cooperative, mild resp distress HEENT: Atraumatic, PERRLA, EOMI, Mucous membrane moist/pink Respiratory: Bilateral basal crackles. Cardiovascular: Regular rate, Normal S1, Normal S2, No murmurs, no chest wall tenderness Abdominal: Normal bowel sounds, Soft, No tenderness, No hepatospenomegaly, No masses Extremities: Bilateral pedal edema 3+, swollen tender left leg, No clubbing, No cyanosis, Normal pulses. Skin: No rashes, No breakdown, No significant lesion Neuro: Normal speech, Strength at 5/5 X4 ext, Normal tone, Sensation intact, Cranial nerves 3-12 NL, Reflexes 2+ Psych/Mental Status: Mental status NL, Mood NL laboratory and microbiology Laboratory Tests 02/07/25 04:01 Test 02/07/25 04:01 Range/Units Serum Glucose 127 H 74-106 mg/dL Microbiology Date/Time Source Procedure Growth Status 02/06/25 04:19 Blood Blood Culture - Preliminary NO GROWTH AFTER 24 HOURS OF INCUBATION. Resulted Labs and/or images reviewed: Labs reviewed by me, Image(s) reviewed by me Problem List/Assessment/Plan Problem List/Assessment/Plan Assessment and plan: Acute cellulitis of the left lower leg - IV vancomycin as per pharmacy and IV ceftriaxone 1 gm daily. Sepsis likely due to pneumonia Possible gram positive/gram negative pneumonia Acute hypoxic respiratory failure, likely due to CHF exacerbation Acute on chronic decompensated systolic heart failure, due to medication nonadherence/methamphetamine use disorder Volume overload, due to systolic heart failure Possible NSTEMI type 2 Hyperbilirubinemia with transaminitis likely due to hepatic congestion Severe mitral regurgitation Severe tricuspid regurgitation Pulmonary hypertension History of DVT and pulmonary emboli Dyslipidemia SVT, currently sinus rhythm, at 2 episodes of SVT at hospital 1st episode was reverted with Cardizem and 2nd episode was reverted to Sinus rhythm spontaneously Medication nonadherence * EKGs shows sinus tachycardia with no significant ST or T-wave changes * Trop I is mildly raised at 70s, stable, BNP is raised at 2300 * Echo shows dilated all cardiac chamber, EF 7% with RSVP 57 * Chest x-ray shows cardiomegaly - Patient is on 3 L oxygen through [employer] - IV Lasix 80 mg daily - continue spironolactone 25 mg daily, Jardiance 10 mg daily and Xarelto 20 mg daily. - IV ceftriaxone 1 g daily - cardiology on board - strict I&O ORLY, on possible CKD, likely VMN Possible cradiorenal syndrome - Monitor BMP Currently smoker and methamphetamine abuse disorder - counseled patient regarding cessation of smoking and methamphetamine and discussed about the rehabilitation. DVT prophylaxis - patient is on Xarelto Goal of care discussed with the patient for more than 18 minutes full code Plan discussed with Dr. Escobar Plan discussed with: Patient, Other (RN) My Orders My Orders Orders - KOLBY MOTLEY Procedure Category Date Status Time Bilat Lower Dvt US 02/06/25 Resulted 16:04 Ceftriaxone 1gm/50ml PHA 02/07/25 In Process D5w (Rocephin) 09:00 Strict I & O ZAID 02/06/25 In Process 16:39 Vancomycin Per PHA 02/07/25 Pending Pharmacy 06:30 Mrsa Screen [facility] 02/07/25 Uncollected 06:29 Covid19 Antigen [facility] 02/07/25 In Process Rapid Influenza A&B LAB 02/07/25 In Process 06:31 Respiratory Culture [facility] 02/07/25 Uncollected W/ Gs 08:58 Date of Service: Feb 07, 2025 Billing Provider: LISA ESCOBAR MD Common Visit Codes: [id number] CARE 30-74 MIN KOLBY MOTLEY Feb 07, 2025 09:17 LISA ESCOBAR MD Feb 10, 2025 15:53
[2025-02-07 09:48] LABS: COVID19 ANTIGEN SOFIA FIA NEGATIVE (NEGATIVE)
--- NOTE | 2025-02-07 09:52 | ECG ---
[facility] Test Date: 2025-02-06 Test Time: 08:11:01 Pat Name: AMBER BREWSTER Department: ED Room: 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
[2025-02-07] MEDS: SPIRONOLACTONE 25 MG TAB PO SCH (10:10)
[2025-02-07] MEDS: FUROSEMIDE 100 MG/10ML VIAL IV SCH (10:10)
[2025-02-07] MEDS: METOPROLOL SUCCINATE XL 50 MG TAB PO SCH (10:11)
[2025-02-07] MEDS: HYDROcodone-ACET 5/325MG TAB PO PRN (14:17)
[2025-02-07] MEDS: VANCOMYCIN 1GM/200ML PM 200 ML IV ONE (20:12)
[2025-02-07 21:09] LABS: Potassium 3.6 mmol/L (3.5-5.1); Sodium 137 mmol/L (136-145)
[2025-02-07 21:10] LABS: Anion Gap 6 (5-15); Calcium 9.0 mg/dL (8.7-10.4)
[2025-02-07 21:15] LABS: BUN/Creatinine Ratio 13.6 (10.0-20.0)
[2025-02-07 21:16] LABS: Magnesium 2.1 mg/dL (1.6-2.6)
[2025-02-07 21:22] LABS: Blood Urea Nitrogen 24 mg/dL (9-23); Carbon Dioxide 34 mmol/L (20-31); Chloride 97 mmol/L (98-107); Glucose 140 mg/dL (74-106)
[2025-02-08] VITALS (26 sets, daily range): BP systolic 84–130; BP diastolic 52–81; PULSE 91–112; RESP 14–32; TEMP 98.4–99; O2SAT 85–100
[2025-02-08 05:40] LABS: Hematocrit 40.5 % (41.0-53.0); Hemoglobin 13.1 g/dL (13.5-17.5); Mean Corpuscular Hemoglobin 32.1 pg (28.0-32.0); Mean Corpuscular Volume 99.2 fL (80.0-100.0); Nucleated Red Blood Cells % 0.0 %
[2025-02-08 05:48] LABS: Chloride 99 mmol/L (98-107); Potassium 3.6 mmol/L (3.5-5.1); Sodium 137 mmol/L (136-145)
[2025-02-08 05:49] LABS: Anion Gap 6 (5-15); Carbon Dioxide 32 mmol/L (20-31)
[2025-02-08 05:50] LABS: Calcium 8.7 mg/dL (8.7-10.4)
[2025-02-08 05:54] LABS: Glucose 105 mg/dL (74-106)
[2025-02-08 05:55] LABS: BUN/Creatinine Ratio 14.0 (10.0-20.0); Blood Urea Nitrogen 22 mg/dL (9-23)
[2025-02-08] MEDS: VANCOMYCIN 1GM/200ML PM 200 ML IV SCH (10:00)
--- NOTE | 2025-02-08 14:10 | DVHPNRES ---
Progress Note Date Seen: Feb 08, 2025 Resident Creating Document: KOLBY MOTLEY RESIDENT Medical Necessity Reason Pt with a Central, PICC or Fol: No Subjective Review of Systems Patient was seen and examined on the bedside. He is alert oriented x3 and on nasal canula 3L saturating 92%. Hemodynamically stable, diuresing well, negative balance 3600 mL. Complaint of pain and swelling in the left lower leg. Objective vital signs Vital Sign Date Time Temp Pulse Resp B/P (MAP) Pulse Ox O2 Delivery O2 Flow Rate FiO2 02/08/25 12:15 102/66 02/08/25 12:00 93 02/08/25 12:00 16 92 Nasal Cannula* 3 32 02/08/25 04:00 98.7 98.7 Total Intake and Output 02/07/25 02/07/25 02/08/25 15:00 23:00 07:00 Intake Total 1450 ml 200 ml 1000 ml Output Total 3525 ml 875 ml 1850 ml Balance -2075 ml -675 ml -850 ml medications Current Medications Medications Dose Ordered Sig/Pravin Route Start Time Stop Time Status Last Admin Dose Admin Rivaroxaban 20 mg DAILY PO 02/06/25 10:00 02/08/25 09:58 20 MG Empaglifozin 10 mg DAILY PO 02/06/25 10:00 02/08/25 09:58 10 MG Ondansetron HCl 4 mg Q4HP PRN IV 02/06/25 05:00 Acetaminophen 650 mg Q6HP PRN PO 02/06/25 05:00 02/06/25 21:09 650 MG Albuterol 2.5 mg Q6HPRN PRN NEB 02/06/25 05:15 02/07/25 01:22 2.5 MG Furosemide 80 mg DAILY IV 02/07/25 10:00 02/08/25 09:59 80 MG Norepinephrine Bitartrate 250 ml @ 3.75 mls/hr Q24H IV 02/06/25 12:15 Spironolactone 25 mg DAILY PO 02/07/25 10:00 02/08/25 09:58 25 MG Ceftriaxone Sodium 50 ml @ 100 mls/hr DAILY@09 IV 02/07/25 09:00 02/08/25 09:48 100 MLS/HR Metoprolol Succinate 25 mg DAILY PO 02/07/25 10:00 02/08/25 09:58 25 MG Vancomycin HCl 0 ml @ 0 mls/hr UD IV 02/07/25 06:30 Acetaminophen/ Hydrocodone Bitart 1 tab Q4HPRN PRN PO 02/07/25 14:00 02/08/25 09:57 1 TAB Vancomycin HCl 200 ml @ 200 mls/hr Q12HR IV 02/08/25 10:00 02/08/25 10:00 200 MLS/HR Examination Physical examination: General Appearance: Alert, Oriented X3, Cooperative, mild resp distress HEENT: Atraumatic, PERRLA, EOMI, Mucous membrane moist/pink Respiratory: Bilateral basal crackles. Cardiovascular: Regular rate, Normal S1, Normal S2, No murmurs, no chest wall tenderness Abdominal: Normal bowel sounds, Soft, No tenderness, No hepatospenomegaly, No masses Extremities: Bilateral pedal edema 3+, swollen tender left leg, No clubbing, No cyanosis, Normal pulses. Skin: No rashes, No breakdown, No significant lesion Neuro: Normal speech, Strength at 5/5 X4 ext, Normal tone, Sensation intact, Cranial nerves 3-12 NL, Reflexes 2+ Psych/Mental Status: Mental status NL, Mood NL laboratory and microbiology Laboratory Tests 02/08/25 04:35 Test 02/08/25 04:35 Range/Units Serum Glucose 105 74-106 mg/dL Microbiology Date/Time Source Procedure Growth Status 02/07/25 17:22 Nose MRSA Screen - Final Complete 02/07/25 15:00 Sputum Expectorated Sputum Gram Stain - Final Resulted 02/07/25 15:00 Sputum Expectorated Sputum Respiratory Culture - Preliminary Resulted 02/06/25 04:19 Blood Blood Culture - Preliminary NO GROWTH AFTER 48 HOURS OF INCUBATION. Resulted Labs and/or images reviewed: Labs reviewed by me, Image(s) reviewed by me Problem List/Assessment/Plan Problem List/Assessment/Plan Assessment and plan: Acute cellulitis of the left lower leg - IV vancomycin as per pharmacy and IV ceftriaxone 1 gm daily. Sepsis likely due to pneumonia Possible gram positive/gram negative pneumonia Acute hypoxic respiratory failure, likely due to CHF exacerbation Acute on chronic decompensated systolic heart failure, due to medication nonadherence/methamphetamine use disorder Volume overload, due to systolic heart failure Possible NSTEMI type 2 Hyperbilirubinemia with transaminitis likely due to hepatic congestion Severe mitral regurgitation Severe tricuspid regurgitation Pulmonary hypertension History of DVT and pulmonary emboli Dyslipidemia SVT, currently sinus rhythm, at 2 episodes of SVT at hospital 1st episode was reverted with Cardizem and 2nd episode was reverted to Sinus rhythm spontaneously Medication nonadherence * EKGs shows sinus tachycardia with no significant ST or T-wave changes * Trop I is mildly raised at 70s, stable, BNP is raised at 2300 * Echo shows dilated all cardiac chamber, EF 7% with RSVP 57 * Chest x-ray shows cardiomegaly - Patient is on 3 L oxygen through [employer] - IV Lasix 80 mg daily - continue spironolactone 25 mg daily, Jardiance 10 mg daily and Xarelto 20 mg daily. - IV ceftriaxone 1 g daily - cardiology on board - strict I&O ORLY, on possible CKD, likely VMN Possible cradiorenal syndrome - Monitor BMP Currently smoker and methamphetamine abuse disorder - counseled patient regarding cessation of smoking and methamphetamine and discussed about the rehabilitation. DVT prophylaxis - patient is on Xarelto Goal of care discussed with the patient for more than 18 minutes full code Plan discussed with Dr. Escobar Plan discussed with: Patient, Other (RN) My Orders My Orders Orders - KOLBY MOTLEY Procedure Category Date Status Time Vancomycin Per ZAID 02/07/25 In Process Pharmacy Protoc 20:[address] 02/08/25 Logged W/O Con 07:07 Vancomycin 1gm/200ml PHA 02/08/25 In Process Pm 10:00 Vancomycin,Trough LAB 02/09/25 Verified 09:00 Vancomycin Per ZAID 02/09/25 In Process Pharmacy Protoc 10:00 Creatinine LAB 02/09/25 Verified 09:00 Date of Service: Feb 08, 2025 Billing Provider: LISA ESCOBAR MD Common Visit Codes: [id number] CARE 30-74 MIN KOLBY MOTLEY Feb 08, 2025 14:10 LISA ESCOBAR MD Feb 10, 2025 16:05
[2025-02-08] MEDS: POTASSIUM PHOSPHATE 22 MEQ in SODIUM CHL 0.9% 100 ML IV ONE (15:15)
[2025-02-09] VITALS (26 sets, daily range): BP systolic 97–107; BP diastolic 57–78; PULSE 90–116; RESP 16–33; TEMP 97–98.6; O2SAT 80–100
--- NOTE | 2025-02-09 05:47 | DVH ---
INDICATION: Painful tense swelling of left lower extremity COMPARISON: None TECHNIQUE: CT of the left lower extremity was performed without contrast. Volume transverse images we re obtained and reconstructed in multiple planes using bone and soft tissue algorithms. Radiation Dose Information: CT Dose: CTDI volume is 12.66 mGy. Dose-length product is 1366.65 mGy*cm FINDINGS: The alignment is normal. The joint spaces are normal. There is no fracture, dislocation or aggressive osseous lesion. Extensive near water attenuation material extends the length of the left lower extremity along the la teral subcutaneous soft tissues from the level of the hip to the knee and measures up to 2.4 cm in th ickness. There is no discretely organized collection of this fluid to suggest an abscess formation at this time. Moderate circumferential soft tissue swelling and edema with mild tracking fluid within t he distal aspect of the left extremity. IMPRESSION: 1. Ill-defined extensive subcutaneous fluid with associated soft tissue swelling and edema throughout the lateral aspect of the left leg extending from the hip to the knee with less well-defined circumf erential soft tissue swelling and edema extending distally to the ankle. No definable organized fluid collection to suggest abscess at this time. 2. All CT scans at this medical facility are performed using dose modulation techniques as appropriat e to a performed exam including the following: Automated exposure control was utilized; adjustment of the MA and/or KV according to patient size; and use of iterative reconstruction technique.
[2025-02-09 05:57] LABS: Hematocrit 39.8 % (41.0-53.0); Hemoglobin 13.4 g/dL (13.5-17.5); Mean Corpuscular Hemoglobin 33.1 pg (28.0-32.0); Mean Corpuscular Volume 98.3 fL (80.0-100.0); Nucleated Red Blood Cells % 0.1 %
[2025-02-09 06:12] LABS: Anion Gap 8 (5-15); Carbon Dioxide 30 mmol/L (20-31); Chloride 100 mmol/L (98-107); Potassium 3.9 mmol/L (3.5-5.1); Sodium 138 mmol/L (136-145)
[2025-02-09 06:15] LABS: Calcium 8.7 mg/dL (8.7-10.4)
[2025-02-09 06:18] LABS: BUN/Creatinine Ratio 16.8 (10.0-20.0); Glucose 92 mg/dL (74-106)
[2025-02-09 06:19] LABS: Blood Urea Nitrogen 26 mg/dL (9-23)
[2025-02-09] MEDS: FUROSEMIDE 20 MG TAB PO ONE (11:00)
--- NOTE | 2025-02-09 14:25 | DVHPNRES ---
Progress Note Date Seen: Feb 09, 2025 Resident Creating Document: LUIS ANTONIO KATZ RESIDENT Medical Necessity Reason Pt with a Central, PICC or Fol: No Subjective Review of Systems Patient was seen and examined on the bedside. He is alert oriented x3 and on nasal canula 2L saturating 96%. Patient is downgraded to Tele Objective vital signs Vital Sign Date Time Temp Pulse Resp B/P (MAP) Pulse Ox O2 Delivery O2 Flow Rate FiO2 02/09/25 12:00 97.0 104 23 102/72 (82) 97.0 02/09/25 11:00 100 02/09/25 10:00 Nasal Cannula* 3 32 Total Intake and Output 02/08/25 02/08/25 02/09/25 15:00 23:00 07:00 Intake Total 1400 ml 1578.75 ml 650 ml Output Total 3600 ml 1800 ml Balance 1400 ml -2021.25 ml -1150 ml medications Current Medications Medications Dose Ordered Sig/Pravin Route Start Time Stop Time Status Last Admin Dose Admin Rivaroxaban 20 mg DAILY PO 02/06/25 10:00 02/09/25 09:57 20 MG Empaglifozin 10 mg DAILY PO 02/06/25 10:00 02/09/25 09:56 10 MG Ondansetron HCl 4 mg Q4HP PRN IV 02/06/25 05:00 Acetaminophen 650 mg Q6HP PRN PO 02/06/25 05:00 02/06/25 21:09 650 MG Albuterol 2.5 mg Q6HPRN PRN NEB 02/06/25 05:15 02/07/25 01:22 2.5 MG Spironolactone 25 mg DAILY PO 02/07/25 10:00 02/08/25 09:58 25 MG Ceftriaxone Sodium 50 ml @ 100 mls/hr DAILY@09 IV 02/07/25 09:00 02/09/25 09:55 100 MLS/HR Metoprolol Succinate 25 mg DAILY PO 02/07/25 10:00 02/09/25 11:00 25 MG Vancomycin HCl 0 ml @ 0 mls/hr UD IV 02/07/25 06:30 Acetaminophen/ Hydrocodone Bitart 1 tab Q4HPRN PRN PO 02/07/25 14:00 02/08/25 09:57 1 TAB Vancomycin HCl 200 ml @ 200 mls/hr Q12HR IV 02/08/25 10:00 02/09/25 10:59 200 MLS/HR Furosemide 80 mg DAILY PO 02/10/25 10:00 UNV Examination General Appearance: Alert, Oriented X3, Cooperative, mild resp distress HEENT: Atraumatic, PERRLA, EOMI, Mucous membrane moist/pink Respiratory: Bilateral basal crackles. Cardiovascular: Regular rate, Normal S1, Normal S2, No murmurs, no chest wall tenderness Abdominal: Normal bowel sounds, Soft, No tenderness, No hepatospenomegaly, No masses Extremities: Bilateral pedal edema 3+, swollen tender left leg, No clubbing, No cyanosis, Normal pulses. Skin: No rashes, No breakdown, No significant lesion Neuro: Normal speech, Strength at 5/5 X4 ext, Normal tone, Sensation intact, Cranial nerves 3-12 NL, Reflexes 2+ Psych/Mental Status: Mental status NL, Mood NL laboratory and microbiology Laboratory Tests 02/09/25 09:45 02/09/25 05:12 Test 02/09/25 05:12 Range/Units Serum Glucose 92 74-106 mg/dL Microbiology Date/Time Source Procedure Growth Status 02/07/25 17:22 Nose MRSA Screen - Final Complete 02/07/25 15:00 Sputum Expectorated Sputum Gram Stain - Final Resulted 02/07/25 15:00 Sputum Expectorated Sputum Respiratory Culture - Preliminary Resulted 02/06/25 04:19 Blood Blood Culture - Preliminary NO GROWTH AFTER 72 HOURS OF INCUBATION. Resulted Problem List/Assessment/Plan Problem List/Assessment/Plan Acute cellulitis of the left lower leg - IV vancomycin as per pharmacy and IV ceftriaxone 1 gm daily. Sepsis likely due to pneumonia Possible gram positive/gram negative pneumonia Acute hypoxic respiratory failure, likely due to CHF exacerbation Acute on chronic decompensated systolic heart failure, due to medication nonadherence/methamphetamine use disorder Volume overload, due to systolic heart failure Possible NSTEMI type 2 Hyperbilirubinemia with transaminitis likely due to hepatic congestion Severe mitral regurgitation Severe tricuspid regurgitation Pulmonary hypertension History of DVT and pulmonary emboli Dyslipidemia SVT, currently sinus rhythm, at 2 episodes of SVT at hospital 1st episode was reverted with Cardizem and 2nd episode was reverted to Sinus rhythm spontaneously Medication nonadherence EKGs shows sinus tachycardia with no significant ST or T-wave changes Trop I is mildly raised at 70s, stable, BNP is raised at 2300 Echo shows dilated all cardiac chamber, EF 7% with RSVP 57 Chest x-ray shows cardiomegaly - Patient is on 2L oxygen through [employer] - D/C IV Lasix 80 mg daily, -Start PO Lasix 80 mg daily - continue spironolactone 25 mg daily, Jardiance 10 mg daily and Xarelto 20 mg daily. - IV ceftriaxone 1 g daily - cardiology on board - strict I&O ORLY, on possible CKD, likely VMN Possible cradiorenal syndrome - Monitor BMP Currently smoker and methamphetamine abuse disorder - counseled patient regarding cessation of smoking and methamphetamine and discussed about the rehabilitation. Patient is downgraded to Tele DVT prophylaxis - patient is on Xarelto Goal of care discussed with the patient for 23 minutes full code Plan discussed with Dr. Escobar Plan discussed with: Patient My Orders My Orders Orders - LUIS ANTONIO KATZ RESIDENT Procedure Category Date Status Time Furosemide Tablet PHA 02/10/25 Logged (Lasix Tablet) 10:00 Date of Service: Feb 09, 2025 Billing Provider: LISA ESCOBAR MD Common Visit Codes: [id number] INP/OBS CARE(HIGH) LUIS ANTONIO KATZ Feb 09, 2025 14:25 LISA ESCOBAR MD Feb 10, 2025 16:11
[2025-02-09] MEDS: VANCOMYCIN 1.25GM/250ML 250 ML IV SCH (21:48)
[2025-02-10] VITALS (11 sets, daily range): BP systolic 107–123; BP diastolic 63–83; PULSE 51–112; RESP 16–22; TEMP 97.4–99; O2SAT 92–100
[2025-02-10 06:37] LABS: Hematocrit 40.1 % (41.0-53.0); Hemoglobin 13.5 g/dL (13.5-17.5); Mean Corpuscular Hemoglobin 33.1 pg (28.0-32.0); Mean Corpuscular Volume 98.1 fL (80.0-100.0); Nucleated Red Blood Cells % 0.1 %
[2025-02-10 06:50] LABS: Chloride 102 mmol/L (98-107); Potassium 3.9 mmol/L (3.5-5.1); Sodium 139 mmol/L (136-145)
[2025-02-10 06:51] LABS: Anion Gap 7 (5-15); Calcium 9.4 mg/dL (8.7-10.4); Carbon Dioxide 30 mmol/L (20-31)
[2025-02-10 06:56] LABS: BUN/Creatinine Ratio 20.9 (10.0-20.0); Glucose 92 mg/dL (74-106)
[2025-02-10 06:58] LABS: Blood Urea Nitrogen 28 mg/dL (9-23)
[2025-02-10] MEDS: FUROSEMIDE 20 MG TAB PO SCH (11:33)
[2025-02-10] MEDS ORDERED: FUROSEMIDE 100 MG/10ML VIAL IV ONE (14:15)
--- NOTE | 2025-02-10 15:10 | DVHPNRES ---
Progress Note Date Seen: Feb 10, 2025 Resident Creating Document: KOLBY MOTLEY RESIDENT Medical Necessity Reason Pt with a Central, PICC or Fol: No Subjective Review of Systems Patient was seen and examined on the bedside. He is alert oriented x3 and on 2 L oxygen saturating 97%. Complaint of shortness of Breath and left leg swelling. No other active complaint. Objective vital signs Vital Sign Date Time Temp Pulse Resp B/P (MAP) Pulse Ox O2 Delivery O2 Flow Rate FiO2 02/10/25 12:45 97.4 98 18 113/83 (93) 98 97.4 02/10/25 10:00 Nasal Cannula* 2 28 Total Intake and Output 02/09/25 02/09/25 02/10/25 15:00 23:00 07:00 Intake Total 250 ml 1750 ml 1600 ml Output Total 3100 ml 1300 ml Balance 250 ml -1350 ml 300 ml medications Current Medications Medications Dose Ordered Sig/Pravin Route Start Time Stop Time Status Last Admin Dose Admin Rivaroxaban 20 mg DAILY PO 02/06/25 10:00 02/10/25 10:20 20 MG Empaglifozin 10 mg DAILY PO 02/06/25 10:00 02/10/25 10:20 10 MG Ondansetron HCl 4 mg Q4HP PRN IV 02/06/25 05:00 Acetaminophen 650 mg Q6HP PRN PO 02/06/25 05:00 02/06/25 21:09 650 MG Albuterol 2.5 mg Q6HPRN PRN NEB 02/06/25 05:15 02/07/25 01:22 2.5 MG Spironolactone 25 mg DAILY PO 02/07/25 10:00 02/10/25 10:20 25 MG Ceftriaxone Sodium 50 ml @ 100 mls/hr DAILY@09 IV 02/07/25 09:00 02/10/25 10:18 100 MLS/HR Metoprolol Succinate 25 mg DAILY PO 02/07/25 10:00 02/10/25 10:20 25 MG Vancomycin HCl 0 ml @ 0 mls/hr UD IV 02/07/25 06:30 Acetaminophen/ Hydrocodone Bitart 1 tab Q4HPRN PRN PO 02/07/25 14:00 02/10/25 13:06 1 TAB Vancomycin HCl 250 ml @ 200 mls/hr Q12H IV 02/09/25 22:00 02/10/25 10:00 200 MLS/HR Furosemide 80 mg DAILY IV 02/11/25 10:00 Examination Physical examination: General Appearance: Alert, Oriented X3, Cooperative, mild distress HEENT: Atraumatic, PERRLA, EOMI, Mucous membrane moist/pink Respiratory: Bilateral basal crackles. Cardiovascular: Regular rate, Normal S1, Normal S2, No murmurs, no chest wall tenderness Abdominal: Normal bowel sounds, Soft, No tenderness, No hepatospenomegaly, No masses Extremities: Bilateral Pedal edema, No clubbing, No cyanosis, Normal pulses, No tenderness/swelling Skin: No rashes, No breakdown, No significant lesion Neuro: Normal speech, Strength at 5/5 X4 ext, Normal tone, Sensation intact, Cranial nerves 3-12 NL, Reflexes 2+ Psych/Mental Status: Mental status NL, Mood NL laboratory and microbiology Laboratory Tests 02/10/25 05:12 Test 02/10/25 05:12 Range/Units Serum Glucose 92 74-106 mg/dL Microbiology Date/Time Source Procedure Growth Status 02/07/25 17:22 Nose MRSA Screen - Final Complete 02/07/25 15:00 Sputum Expectorated Sputum Gram Stain - Final Complete 02/07/25 15:00 Sputum Expectorated Sputum Respiratory Culture - Final Complete 02/06/25 04:19 Blood Blood Culture - Preliminary NO GROWTH AFTER 72 HOURS OF INCUBATION. Resulted Labs and/or images reviewed: Labs reviewed by me, Image(s) reviewed by me Problem List/Assessment/Plan Problem List/Assessment/Plan Assessment and plan: Acute cellulitis of the left lower leg - IV vancomycin as per pharmacy and IV ceftriaxone 1 gm daily. Sepsis likely due to pneumonia Possible gram positive/gram negative pneumonia Acute hypoxic respiratory failure, likely due to CHF exacerbation Acute on chronic decompensated systolic heart failure, due to medication nonadherence/methamphetamine use disorder Volume overload, due to systolic heart failure Possible NSTEMI type 2 Hyperbilirubinemia with transaminitis likely due to hepatic congestion Severe mitral regurgitation Severe tricuspid regurgitation Pulmonary hypertension History of DVT and pulmonary emboli Dyslipidemia SVT, currently sinus rhythm, at 2 episodes of SVT at hospital 1st episode was reverted with Cardizem and 2nd episode was reverted to Sinus rhythm spontaneously Medication nonadherence * EKGs shows sinus tachycardia with no significant ST or T-wave changes * Trop I is mildly raised at 70s, stable, BNP is raised at 2300 * Echo shows dilated all cardiac chamber, EF 7% with RSVP 57 * Chest x-ray shows cardiomegaly - Patient is on 3 L oxygen through [employer] - IV Lasix 80 mg daily - continue spironolactone 25 mg daily, Jardiance 10 mg daily and Xarelto 20 mg daily. - IV ceftriaxone 1 g daily - cardiology on board - strict I&O ORLY, on possible CKD, likely VMN Possible cradiorenal syndrome - Monitor BMP Currently smoker and methamphetamine abuse disorder - counseled patient regarding cessation of smoking and methamphetamine and discussed about the rehabilitation. DVT prophylaxis - patient is on Xarelto Goal of care discussed with the patient for more than 18 minutes full code Plan discussed with Dr. Escobar Plan discussed with: Patient, Other (RN) My Orders My Orders Orders - KOLBY MOTLEY Procedure Category Date Status Time Vancomycin PHA 02/09/25 In Process 1.25gm/250ml 22:00 Vancomycin,Trough LAB 02/11/25 Verified 09:00 Vancomycin Per [facility] 02/11/25 In Process Pharmacy Protoc 10:00 Pt Request For Service PT 02/10/25 Logged 11:54 Furosemide Injection PHA 02/11/25 In Process (Lasix Injection) 10:00 Date of Service: Feb 10, 2025 Billing Provider: LISA ESCOBAR MD Common Visit Codes: [id number] INP/OBS CARE(HIGH) KOLBY MOTLEY RESIDENT Feb 10, 2025 15:10 LISA ESCOBAR MD Feb 10, 2025 16:18
[2025-02-11] VITALS (11 sets, daily range): BP systolic 107–121; BP diastolic 66–91; PULSE 96–109; RESP 18–21; TEMP 98.1–98.6; O2SAT 96–100
[2025-02-11 07:46] LABS: Anion Gap 7 (5-15); Carbon Dioxide 29 mmol/L (20-31); Chloride 105 mmol/L (98-107); Potassium 4.1 mmol/L (3.5-5.1); Sodium 141 mmol/L (136-145)
[2025-02-11 07:47] LABS: Calcium 9.2 mg/dL (8.7-10.4)
[2025-02-11 07:52] LABS: BUN/Creatinine Ratio 18.9 (10.0-20.0); Blood Urea Nitrogen 25 mg/dL (9-23); Glucose 94 mg/dL (74-106)
[2025-02-11] MEDS: FUROSEMIDE 100 MG/10ML VIAL IV SCH (10:37)
[2025-02-11] MEDS: VANCOMYCIN 1GM/200ML PM 200 ML IV SCH (13:00)
--- NOTE | 2025-02-11 15:13 | DVHPNRES ---
Progress Note Date Seen: Feb 11, 2025 Resident Creating Document: KOLBY MOTLEY RESIDENT Medical Necessity Reason Pt with a Central, PICC or Fol: No Subjective Review of Systems Patient was seen and examined on the bedside. He is alert oriented x3 and on 1 L oxygen saturating 97%. Complaint of left leg swelling. No other active complaint. Objective vital signs Vital Sign Date Time Temp Pulse Resp B/P (MAP) Pulse Ox O2 Delivery O2 Flow Rate FiO2 02/11/25 12:56 98.6 99 21 121/91 (101) 98 98.6 02/11/25 10:00 Nasal Cannula 1.0 02/11/25 10:00 24 Total Intake and Output 02/10/25 02/10/25 02/11/25 15:00 23:00 07:00 Intake Total 300 ml 1330 ml 1600 ml Output Total 6451 ml 2100 ml Balance 300 ml -5121 ml -500 ml medications Current Medications Medications Dose Ordered Sig/Pravin Route Start Time Stop Time Status Last Admin Dose Admin Rivaroxaban 20 mg DAILY PO 02/06/25 10:00 02/11/25 10:39 20 MG Empaglifozin 10 mg DAILY PO 02/06/25 10:00 02/11/25 10:00 10 MG Ondansetron HCl 4 mg Q4HP PRN IV 02/06/25 05:00 Acetaminophen 650 mg Q6HP PRN PO 02/06/25 05:00 02/06/25 21:09 650 MG Albuterol 2.5 mg Q6HPRN PRN NEB 02/06/25 05:15 02/07/25 01:22 2.5 MG Spironolactone 25 mg DAILY PO 02/07/25 10:00 02/11/25 10:37 25 MG Ceftriaxone Sodium 50 ml @ 100 mls/hr DAILY@09 IV 02/07/25 09:00 02/11/25 10:40 100 MLS/HR Metoprolol Succinate 25 mg DAILY PO 02/07/25 10:00 02/11/25 10:39 25 MG Vancomycin HCl 0 ml @ 0 mls/hr UD IV 02/07/25 06:30 Acetaminophen/ Hydrocodone Bitart 1 tab Q4HPRN PRN PO 02/07/25 14:00 02/11/25 10:41 1 TAB Furosemide 80 mg DAILY IV 02/11/25 10:00 02/11/25 10:37 80 MG Vancomycin HCl 200 ml @ 200 mls/hr Q12H IV 02/11/25 13:00 Examination Physical examination: General Appearance: Alert, Oriented X3, Cooperative, mild distress HEENT: Atraumatic, PERRLA, EOMI, Mucous membrane moist/pink Respiratory: Bilateral fine basal crackles. Cardiovascular: Regular rate, Normal S1, Normal S2, No murmurs, no chest wall tenderness Abdominal: Normal bowel sounds, Soft, No tenderness, No hepatospenomegaly, No masses Extremities: Bilateral Pedal edema 3+, No clubbing, No cyanosis, Normal pulses. Skin: No rashes, No breakdown, No significant lesion Neuro: Normal speech, Strength at 5/5 X4 ext, Normal tone, Sensation intact, Cranial nerves 3-12 NL, Reflexes 2+ Psych/Mental Status: Mental status NL, Mood NL laboratory and microbiology Laboratory Tests 02/11/25 09:56 02/11/25 06:26 02/10/25 05:12 Test 02/11/25 06:26 Range/Units Serum Glucose 94 74-106 mg/dL Microbiology Date/Time Source Procedure Growth Status 02/07/25 17:22 Nose MRSA Screen - Final Complete 02/07/25 15:00 Sputum Expectorated Sputum Gram Stain - Final Complete 02/07/25 15:00 Sputum Expectorated Sputum Respiratory Culture - Final Complete 02/06/25 04:19 Blood Blood Culture - Final NO GROWTH AFTER 5 DAYS OF INCUBATION. Complete Labs and/or images reviewed: Labs reviewed by me, Image(s) reviewed by me Problem List/Assessment/Plan Problem List/Assessment/Plan Assessment and plan: Acute cellulitis of the left lower leg - IV vancomycin as per pharmacy and IV ceftriaxone 1 gm daily. Sepsis likely due to pneumonia Possible gram positive/gram negative pneumonia Acute hypoxic respiratory failure, likely due to CHF exacerbation Acute on chronic decompensated systolic heart failure, due to medication nonadherence/methamphetamine use disorder Volume overload, due to systolic heart failure Possible NSTEMI type 2 Hyperbilirubinemia with transaminitis likely due to hepatic congestion Severe mitral regurgitation Severe tricuspid regurgitation Pulmonary hypertension History of DVT and pulmonary emboli Dyslipidemia SVT, currently sinus rhythm, at 2 episodes of SVT at hospital 1st episode was reverted with Cardizem and 2nd episode was reverted to Sinus rhythm spontaneously Medication nonadherence * EKGs shows sinus tachycardia with no significant ST or T-wave changes * Trop I is mildly raised at 70s, stable, BNP is raised at 2300 * Echo shows dilated all cardiac chamber, EF 7% with RSVP 57 * Chest x-ray shows cardiomegaly - Patient is on 1 L oxygen - IV Lasix 80 mg daily - continue spironolactone 25 mg daily, Jardiance 10 mg daily and Xarelto 20 mg daily. - IV ceftriaxone 1 g daily - cardiology on board - strict I&O ORLY, on possible CKD, likely VMN Possible cradiorenal syndrome - Monitor BMP Currently smoker and methamphetamine abuse disorder - counseled patient regarding cessation of smoking and methamphetamine and discussed about the rehabilitation. DVT prophylaxis - patient is on Xarelto Goal of care discussed with the patient for more than 18 minutes full code Plan discussed with Dr. Escobar Plan discussed with: Patient, Other My Orders My Orders Orders - KOLBY MOTLEY Procedure Category Date Status Time Vancomycin 1gm/200ml PHA 02/11/25 In Process Pm 13:00 Vancomycin,Trough LAB 02/13/25 Verified 12:00 Vancomycin Per [facility]AID 02/11/25 In Process Pharmacy Protoc 13:00 Creatinine LAB 02/12/25 Verified 04:00 Dietary Evaluation Review Comments: 1) Continue current POC 2) Monitor PO intake, lab values, I/O Expected Outcomes/Goals: To meet >75% estimated needs Fu 3-5 days Date of Service: Feb 11, 2025 Billing Provider: LISA ESCOBAR MD Common Visit Codes: [id number] INP/OBS CARE(HIGH) KOLBY MOTLEY Feb 11, 2025 15:13 LISA ESCOBAR MD Feb 14, 2025 14:11
[2025-02-12] VITALS (12 sets, daily range): BP systolic 101–119; BP diastolic 71–82; PULSE 51–107; RESP 16–19; TEMP 97.5–98; O2SAT 92–100
--- NOTE | 2025-02-12 07:15 | ECG ---
[facility] Test Date: 2025-02-09 Test Time: 07:09:37 Pat Name: AMBER CORNISH Department: Room: 0277T A Gender: M [facility]: : 1980 Requested By: KOLBY MOTLEY Order Number: [id number] Reading MD: Shade Pizano Measurements Intervals [place] Rate: 111 P: 70 [place]: 176 QRS: 65 QRSD: 88 T: -42 QT: 336 QTc: 456 Interpretive Statements Sinus tachycardia Left atrial enlargement T wave abnormality, consider lateral ischemia Electronically Signed On 02-13-2025 15:24:12 PDT by Shade Pizano Please click the below link to view image of tracing.
[2025-02-12 07:33] LABS: Anion Gap 9 (5-15); Calcium 9.5 mg/dL (8.7-10.4); Carbon Dioxide 27 mmol/L (20-31); Chloride 103 mmol/L (98-107); Potassium 4.5 mmol/L (3.5-5.1); Sodium 139 mmol/L (136-145)
[2025-02-12 07:39] LABS: BUN/Creatinine Ratio 19.0 (10.0-20.0); Glucose 94 mg/dL (74-106)
[2025-02-12 07:40] LABS: Blood Urea Nitrogen 26 mg/dL (9-23)
[2025-02-12] MEDS: FUROSEMIDE 100 MG/10ML VIAL IV SCH (12:45)
[2025-02-12 15:08] LABS: Magnesium 2.2 mg/dL (1.6-2.6)
--- NOTE | 2025-02-12 16:18 | DVHPNRES ---
Progress Note Date Seen: Feb 12, 2025 Resident Creating Document: KOLBY MOTLEY RESIDENT Medical Necessity Reason Pt with a Central, PICC or Fol: No Subjective Review of Systems Patient was seen and examined on the bedside. He is alert oriented x3 and on room air saturating 97%. Mentioned feeling better, mild pain in left leg. Last 24 hour negative balance 4550 mL. The patient's wet weight was 100 kg and reduced to 91 kg now. Objective vital signs Vital Sign Date Time Temp Pulse Resp B/P (MAP) Pulse Ox O2 Delivery O2 Flow Rate FiO2 02/12/25 12:34 97.7 95 16 101/71 (81) 94 97.7 02/12/25 10:00 Room Air 0.0 02/12/25 10:00 21 Total Intake and Output 02/11/25 02/11/25 02/12/25 15:00 23:00 07:00 Intake Total 1300 ml 200 ml Output Total 6050 ml Balance -4750 ml 200 ml medications Current Medications Medications Dose Ordered Sig/Pravin Route Start Time Stop Time Status Last Admin Dose Admin Rivaroxaban 20 mg DAILY PO 02/06/25 10:00 02/12/25 09:36 20 MG Empaglifozin 10 mg DAILY PO 02/06/25 10:00 02/12/25 09:36 10 MG Ondansetron HCl 4 mg Q4HP PRN IV 02/06/25 05:00 Acetaminophen 650 mg Q6HP PRN PO 02/06/25 05:00 02/06/25 21:09 650 MG Albuterol 2.5 mg Q6HPRN PRN NEB 02/06/25 05:15 02/07/25 01:22 2.5 MG Spironolactone 25 mg DAILY PO 02/07/25 10:00 02/12/25 09:36 25 MG Ceftriaxone Sodium 50 ml @ 100 mls/hr DAILY@09 IV 02/07/25 09:00 02/12/25 09:37 100 MLS/HR Metoprolol Succinate 25 mg DAILY PO 02/07/25 10:00 02/12/25 09:37 25 MG Vancomycin HCl 0 ml @ 0 mls/hr UD IV 02/07/25 06:30 Acetaminophen/ Hydrocodone Bitart 1 tab Q4HPRN PRN PO 02/07/25 14:00 02/12/25 09:47 1 TAB Vancomycin HCl 200 ml @ 200 mls/hr Q12H IV 02/11/25 13:00 02/12/25 13:00 200 MLS/HR Furosemide 40 mg DAILY IV 02/12/25 12:45 Examination Physical examination: General Appearance: Alert, Oriented X3, Cooperative, on room air. HEENT: Atraumatic, PERRLA, EOMI, Mucous membrane moist/pink Respiratory: Bilateral fine basal crackles. Cardiovascular: Regular rate, Normal S1, Normal S2, No murmurs, no chest wall tenderness Abdominal: Normal bowel sounds, Soft, No tenderness, No hepatospenomegaly, No masses Extremities: Bilateral Pedal edema 1+, No clubbing, No cyanosis, Normal pulses. Skin: No rashes, No breakdown, No significant lesion Neuro: Normal speech, Strength at 5/5 X4 ext, Normal tone, Sensation intact, Cranial nerves 3-12 NL, Reflexes 2+ Psych/Mental Status: Mental status NL, Mood NL laboratory and microbiology Laboratory Tests 02/12/25 05:38 02/10/25 05:12 Test 02/12/25 05:38 Range/Units Serum Glucose 94 74-106 mg/dL Microbiology Date/Time Source Procedure Growth Status 02/07/25 17:22 Nose MRSA Screen - Final Complete 02/07/25 15:00 Sputum Expectorated Sputum Gram Stain - Final Complete 02/07/25 15:00 Sputum Expectorated Sputum Respiratory Culture - Final Complete 02/06/25 04:19 Blood Blood Culture - Final NO GROWTH AFTER 5 DAYS OF INCUBATION. Complete Labs and/or images reviewed: Labs reviewed by me, Image(s) reviewed by me Problem List/Assessment/Plan Problem List/Assessment/Plan Assessment and plan: Acute cellulitis of the left lower leg - IV vancomycin as per pharmacy and IV ceftriaxone 1 gm daily. Sepsis likely due to pneumonia Possible gram positive/gram negative pneumonia Acute hypoxic respiratory failure, likely due to CHF exacerbation Acute on chronic decompensated systolic heart failure, due to medication nonadherence/methamphetamine use disorder Volume overload, due to systolic heart failure Possible NSTEMI type 2 Hyperbilirubinemia with transaminitis likely due to hepatic congestion Severe mitral regurgitation Severe tricuspid regurgitation Pulmonary hypertension History of DVT and pulmonary emboli Dyslipidemia SVT, currently sinus rhythm, at 2 episodes of SVT at hospital 1st episode was reverted with Cardizem and 2nd episode was reverted to Sinus rhythm spontaneously Medication nonadherence * EKGs shows sinus tachycardia with no significant ST or T-wave changes * Trop I is mildly raised at 70s, stable, BNP is raised at 2300 * Echo shows dilated all cardiac chamber, EF 7% with RSVP 57 * Chest x-ray shows cardiomegaly - Patient is on 1 L oxygen - IV Lasix 40 mg daily - continue spironolactone 25 mg daily, Jardiance 10 mg daily and Xarelto 20 mg daily. - IV ceftriaxone 1 g daily - cardiology on board - strict I&O ORLY, on possible CKD, likely VMN Possible cradiorenal syndrome - Monitor BMP Currently smoker and methamphetamine abuse disorder - counseled patient regarding cessation of smoking and methamphetamine and discussed about the rehabilitation. DVT prophylaxis - patient is on Xarelto Goal of care discussed with the patient for more than 18 minutes full code Plan discussed with Dr. Escobar Plan discussed with: Patient, Other (RN) My Orders My Orders Orders - KOLBY MOTLEY Procedure Category Date Status Time Creatinine LAB 02/13/25 Verified 04:00 Furosemide Injection PHA 02/12/25 In Process (Lasix Injection) 12:45 Dietary Evaluation Review Comments: 1) Continue current POC 2) Monitor PO intake, lab values, I/O Expected Outcomes/Goals: To meet >75% estimated needs Fu 3-5 days Date of Service: Feb 12, 2025 Billing Provider: LISA ESCOBAR MD Common Visit Codes: [id number] INP/OBS CARE(HIGH) KOLBY MOTLEY Feb 12, 2025 16:18 LISA ESCOBAR MD Feb 14, 2025 14:27
[2025-02-13] VITALS (8 sets, daily range): BP systolic 104–116; BP diastolic 72–83; PULSE 54–107; RESP 17–19; TEMP 97.4–98.2; O2SAT 94–98
[2025-02-13 06:42] LABS: Hematocrit 41.4 % (41.0-53.0); Hemoglobin 13.8 g/dL (13.5-17.5); Mean Corpuscular Hemoglobin 32.6 pg (28.0-32.0); Mean Corpuscular Volume 97.7 fL (80.0-100.0); Nucleated Red Blood Cells % 0.1 %
[2025-02-13 07:00] LABS: Chloride 104 mmol/L (98-107); Potassium 4.6 mmol/L (3.5-5.1); Sodium 140 mmol/L (136-145)
[2025-02-13 07:01] LABS: Anion Gap 8 (5-15); Calcium 9.8 mg/dL (8.7-10.4); Carbon Dioxide 28 mmol/L (20-31)
[2025-02-13 07:06] LABS: BUN/Creatinine Ratio 18.6 (10.0-20.0); Glucose 83 mg/dL (74-106)
[2025-02-13 07:10] LABS: Blood Urea Nitrogen 27 mg/dL (9-23)
[2025-02-13] MEDS: VANCOMYCIN 750mg/150ml 150 ML IV SCH (14:53)
--- NOTE | 2025-02-13 16:39 | DVHPNRES ---
Progress Note Date Seen: Feb 13, 2025 Resident Creating Document: KOLBY MOTLEY RESIDENT Medical Necessity Reason Pt with a Central, PICC or Fol: No Subjective Review of Systems Patient was seen and examined on the bedside. He is alert oriented x3 and on room air saturating 97%. Mentioned feeling better, mild pain in left leg. Last 24 hour negative balance 3066 mL. Changed IV Lasix 40 mg daily to oral p.o. Lasix 40 mg daily. Possible discharge tomorrow. Objective vital signs Vital Sign Date Time Temp Pulse Resp B/P (MAP) Pulse Ox O2 Delivery O2 Flow Rate FiO2 02/13/25 13:00 98.1 100 17 104/72 (83) 96 98.1 02/13/25 09:42 Room Air* 0 21 Total Intake and Output 02/12/25 02/12/25 02/13/25 15:00 23:00 07:00 Intake Total 250 ml 1516 ml 1418 ml Output Total 4250 ml 2000 ml Balance 250 ml -2734 ml -582 ml medications Current Medications Medications Dose Ordered Sig/Pravin Route Start Time Stop Time Status Last Admin Dose Admin Rivaroxaban 20 mg DAILY PO 02/06/25 10:00 02/13/25 08:26 20 MG Empaglifozin 10 mg DAILY PO 02/06/25 10:00 02/13/25 08:26 10 MG Ondansetron HCl 4 mg Q4HP PRN IV 02/06/25 05:00 Acetaminophen 650 mg Q6HP PRN PO 02/06/25 05:00 02/06/25 21:09 650 MG Spironolactone 25 mg DAILY PO 02/07/25 10:00 02/13/25 08:26 25 MG Metoprolol Succinate 25 mg DAILY PO 02/07/25 10:00 02/13/25 08:26 25 MG Acetaminophen/ Hydrocodone Bitart 1 tab Q4HPRN PRN PO 02/07/25 14:00 02/13/25 08:25 1 TAB Furosemide 40 mg DAILY PO 02/14/25 10:00 Examination Physical examination: General Appearance: Alert, Oriented X3, Cooperative, on room air. HEENT: Atraumatic, PERRLA, EOMI, Mucous membrane moist/pink Respiratory: Bilateral fine basal crackles. Cardiovascular: Regular rate, Normal S1, Normal S2, No murmurs, no chest wall tenderness Abdominal: Normal bowel sounds, Soft, No tenderness, No hepatospenomegaly, No masses Extremities: Bilateral Pedal edema 1+, No clubbing, No cyanosis, Normal pulses. Skin: No rashes, No breakdown, No significant lesion Neuro: Normal speech, Strength at 5/5 X4 ext, Normal tone, Sensation intact, Cranial nerves 3-12 NL, Reflexes 2+ Psych/Mental Status: Mental status NL, Mood NL laboratory and microbiology Laboratory Tests 02/13/25 05:22 Test 02/13/25 05:22 Range/Units Serum Glucose 83 74-106 mg/dL Microbiology Date/Time Source Procedure Growth Status 02/07/25 17:22 Nose MRSA Screen - Final Complete 02/07/25 15:00 Sputum Expectorated Sputum Gram Stain - Final Complete 02/07/25 15:00 Sputum Expectorated Sputum Respiratory Culture - Final Complete 02/06/25 04:19 Blood Blood Culture - Final NO GROWTH AFTER 5 DAYS OF INCUBATION. Complete Labs and/or images reviewed: Labs reviewed by me, Image(s) reviewed by me Problem List/Assessment/Plan Problem List/Assessment/Plan Assessment and plan: Acute cellulitis of the left lower leg - CT Left lower leg scan Ill-defined extensive subcutaneous fluid with associated soft tissue swelling and edema throughout the lateral aspect of the left leg extending from the hip to the knee with less well-defined circumferential soft tissue swelling and edema extending distally to the ankle. No definable organized fluid collection to suggest abscess at this time. - Discontinued IV vancomycin and IV ceftriaxone Sepsis likely due to pneumonia Possible gram positive/gram negative pneumonia Acute hypoxic respiratory failure, likely due to CHF exacerbation Acute on chronic decompensated systolic heart failure, due to medication nonadherence/methamphetamine use disorder Volume overload, due to systolic heart failure Possible NSTEMI type 2 Hyperbilirubinemia with transaminitis likely due to hepatic congestion Severe mitral regurgitation Severe tricuspid regurgitation Pulmonary hypertension History of DVT and pulmonary emboli Dyslipidemia SVT, currently sinus rhythm, at 2 episodes of SVT at hospital 1st episode was reverted with Cardizem and 2nd episode was reverted to Sinus rhythm spontaneously Medication nonadherence * EKGs shows sinus tachycardia with no significant ST or T-wave changes * Trop I is mildly raised at 70s, stable, BNP is raised at 2300 * Echo shows dilated all cardiac chamber, EF 7% with RSVP 57 * Chest x-ray shows cardiomegaly - Patient is on room air - Lasix 40 mg po daily. - continue spironolactone 25 mg daily, Jardiance 10 mg daily and Xarelto 20 mg daily. - IV ceftriaxone 1 g daily - cardiology on board - strict I&O ORLY, on possible CKD, likely VMN Possible cradiorenal syndrome - Monitor BMP Currently smoker and methamphetamine abuse disorder - counseled patient regarding cessation of smoking and methamphetamine and discussed about the rehabilitation. DVT prophylaxis - patient is on Xarelto Goal of care discussed with the patient for more than 18 minutes full code Plan discussed with Dr. Escobar Plan discussed with: Patient, Other My Orders My Orders Orders - KOLBY MOTLEY Procedure Category Date Status Time Discontinue Tele [facility] 02/13/25 In Process 06:33 Transfer Orders XFER 02/13/25 Transmitted 06:33 Vancomycin Per [facility] 02/13/25 In Process Pharmacy Protoc 14:00 Furosemide Tablet PHA 02/14/25 In Process (Lasix Tablet) 10:00 Dietary Evaluation Review Comments: 1) Continue current POC 2) Monitor PO intake, lab values, I/O Expected Outcomes/Goals: To meet >75% estimated needs Fu 3-5 days Date of Service: Feb 13, 2025 Billing Provider: LISA ESCOBAR MD Common Visit Codes: [id number] INP/OBS CARE(HIGH) KOLBY MOTLEY Feb 13, 2025 16:39 LISA ESCOBAR MD Feb 19, 2025 20:04
[2025-02-14] VITALS (9 sets, daily range): BP systolic 92–139; BP diastolic 64–80; PULSE 57–115; RESP 16–20; TEMP 96.5–97.9; O2SAT 91–100
[2025-02-14] MEDS: FUROSEMIDE 40 MG/4 ML VIAL IV ONE (02:09)
[2025-02-14] MEDS: ALBUTEROL SULF 2.5 MG/0.5ML(0.5%) NEB SOLN NEB ONE (02:20)
[2025-02-14 08:23] LABS: Calcium 9.7 mg/dL (8.7-10.4); Chloride 104 mmol/L (98-107); Potassium 4.7 mmol/L (3.5-5.1); Sodium 140 mmol/L (136-145)
[2025-02-14 08:24] LABS: Anion Gap 9 (5-15); Carbon Dioxide 27 mmol/L (20-31)
[2025-02-14 08:29] LABS: BUN/Creatinine Ratio 18.2 (10.0-20.0); Blood Urea Nitrogen 26 mg/dL (9-23); Glucose 97 mg/dL (74-106)
[2025-02-14] MEDS: FUROSEMIDE 20 MG TAB PO SCH (08:56)
--- NOTE | 2025-02-14 16:50 | DVH ---
BILATERAL Lower Extremity Arterial Duplex Date: 02/14/2025 03:50 PM Clinical History: Rule out PAD Comparison: None Technique: Duplex Doppler evaluation including color Doppler and spectral/pulsed waveform analysis of the lower extremity arteries was performed. Finding: RIGHT: Peak systolic velocities are as follows: [employer] 76 cm/s triphasic Deep femoral 39 cm/s triphasic SFA proximal 61 cm/s triphasic SFA mid-portion 74 cm/s triphasic SFA distal 74 cm/s triphasic Popliteal 50 cm/s triphasic Posterior tibial 74 cm/s triphasic Anterior tibial 33 cm/s triphasic Dorsalis pedis 57 cm/s triphasic The waveforms are triphasic waveform throughout. LEFT: Peak systolic velocities are as follows: [employer] 85 cm/s triphasic Deep femoral 72 cm/s triphasic SFA proximal 55 cm/s triphasic SFA mid-portion 74 cm/s triphasic SFA distal 71 cm/s triphasic Popliteal 58 cm/s triphasic Posterior tibial 62 cm/s triphasic Anterior tibial 35 cm/s triphasic Dorsalis pedis 58 cm/s triphasic The waveforms are triphasic waveform throughout. REFERENCE VALUES, [facility] ([facility]) vascular Imaging Lab Criteria: Peak systolic velocity ranges (in cm/sec) are as follows: <150 cm/s - <20 % stenosis 150-200 cm/s - 20-49% stenosis 200-300 cm/s - 50-75% stenosis >300 cm/s -> 75% stenosis IMPRESSION: 1. There is no evidence for peripheral vascular insufficiency in the right lower extremity. 2. There is no evidence for peripheral vascular insufficiency in the left lower extremity. 3. No significant focal stenosis is identified.
--- NOTE | 2025-02-14 17:49 | DVHPNRES ---
Progress Note Date Seen: Feb 14, 2025 Resident Creating Document: KOLBY MOTLEY RESIDENT Medical Necessity Reason Pt with a Central, PICC or Fol: No Subjective Review of Systems Patient was seen and examined on the bedside. He is alert oriented x3 and on room air saturating 97%. Complaining of severe left leg pain. Duplex scan of the lower extremity revealed there is no evidence for peripheral vascular insufficiency in the right and left lower extremity. Objective vital signs Vital Sign Date Time Temp Pulse Resp B/P (MAP) Pulse Ox O2 Delivery O2 Flow Rate FiO2 02/14/25 16:59 96.9 98 20 92/64 (73) 94 96.9 02/14/25 10:00 Nasal Cannula* 2 28 Total Intake and Output 02/13/25 02/13/25 02/14/25 15:00 23:00 07:00 Intake Total 50 ml 1150 ml 900 ml Output Total 2700 ml 2800 ml Balance 50 ml -1550 ml -1900 ml medications Current Medications Medications Dose Ordered Sig/Pravin Route Start Time Stop Time Status Last Admin Dose Admin Rivaroxaban 20 mg DAILY PO 02/06/25 10:00 02/14/25 08:56 20 MG Empaglifozin 10 mg DAILY PO 02/06/25 10:00 02/14/25 08:57 10 MG Ondansetron HCl 4 mg Q4HP PRN IV 02/06/25 05:00 Acetaminophen 650 mg Q6HP PRN PO 02/06/25 05:00 02/14/25 11:24 650 MG Spironolactone 25 mg DAILY PO 02/07/25 10:00 02/14/25 08:56 25 MG Metoprolol Succinate 25 mg DAILY PO 02/07/25 10:00 02/14/25 08:57 25 MG Acetaminophen/ Hydrocodone Bitart 1 tab Q4HPRN PRN PO 02/07/25 14:00 02/14/25 08:05 1 TAB Furosemide 40 mg DAILY PO 02/14/25 10:00 02/14/25 08:56 40 MG Examination Physical examination: General Appearance: Alert, Oriented X3, Cooperative, on room air. HEENT: Atraumatic, PERRLA, EOMI, Mucous membrane moist/pink Respiratory: Bilateral fine basal crackles. Cardiovascular: Regular rate, Normal S1, Normal S2, No murmurs, no chest wall tenderness Abdominal: Normal bowel sounds, Soft, No tenderness, No hepatospenomegaly, No masses Extremities: Bilateral Pedal edema 1+, No clubbing, No cyanosis, Normal peripheral pulses bilaterally. Skin: No rashes, No breakdown, No significant lesion Neuro: Normal speech, Strength at 5/5 X4 ext, Normal tone, Sensation intact, Cranial nerves 3-12 NL, Reflexes 2+ Psych/Mental Status: Mental status NL, Mood NL laboratory and microbiology Laboratory Tests 02/14/25 06:45 02/13/25 05:22 Test 02/14/25 06:45 Range/Units Serum Glucose 97 74-106 mg/dL Microbiology Date/Time Source Procedure Growth Status 02/07/25 17:22 Nose MRSA Screen - Final Complete 02/07/25 15:00 Sputum Expectorated Sputum Gram Stain - Final Complete 02/07/25 15:00 Sputum Expectorated Sputum Respiratory Culture - Final Complete 02/06/25 04:19 Blood Blood Culture - Final NO GROWTH AFTER 5 DAYS OF INCUBATION. Complete Labs and/or images reviewed: Labs reviewed by me, Image(s) reviewed by me Problem List/Assessment/Plan Problem List/Assessment/Plan Assessment and plan: Left leg pain ruled out cellulitis - CT Left lower leg scan Ill-defined extensive subcutaneous fluid with associated soft tissue swelling and edema throughout the lateral aspect of the left leg extending from the hip to the knee with less well-defined circumferential soft tissue swelling and edema extending distally to the ankle. No definable organized fluid collection to suggest abscess at this time. - Duplex scan of te lower extremity showed there is no evidence for peripheral vascular insufficiency in the right and left lower extremity. - Discontinued IV vancomycin and IV ceftriaxone Sepsis likely due to pneumonia Possible gram positive/gram negative pneumonia Acute hypoxic respiratory failure, likely due to CHF exacerbation Acute on chronic decompensated systolic heart failure, due to medication nonadherence/methamphetamine use disorder Volume overload, due to systolic heart failure Possible NSTEMI type 2 Hyperbilirubinemia with transaminitis likely due to hepatic congestion Severe mitral regurgitation Severe tricuspid regurgitation Pulmonary hypertension History of DVT and pulmonary emboli Dyslipidemia SVT, currently sinus rhythm, at 2 episodes of SVT at hospital 1st episode was reverted with Cardizem and 2nd episode was reverted to Sinus rhythm spontaneously Medication nonadherence * EKGs shows sinus tachycardia with no significant ST or T-wave changes * Trop I is mildly raised at 70s, stable, BNP is raised at 2300 * Echo shows dilated all cardiac chamber, EF 7% with RSVP 57 * Chest x-ray shows cardiomegaly - Patient is on room air - Lasix 40 mg po daily - continue spironolactone 25 mg daily, Jardiance 10 mg daily and Xarelto 20 mg daily. - IV ceftriaxone 1 g daily - cardiology on board - strict I&O ORLY, on possible CKD, likely VMN Possible cradiorenal syndrome - Monitor BMP Currently smoker and methamphetamine abuse disorder - counseled patient regarding cessation of smoking and methamphetamine and discussed about the rehabilitation. DVT prophylaxis - patient is on Xarelto Goal of care discussed with the patient for more than 18 minutes full code Plan discussed with Dr. Escobar Plan discussed with: Patient, Other My Orders My Orders Orders - KOLBY MOTLEY Procedure Category Date Status Time Creatinine LAB 02/15/25 Verified 04:00 Bilat Low Ext Art US 02/14/25 Resulted Duplex 15:37 Dietary Evaluation Review Comments: 1) Continue current POC 2) Monitor PO intake, lab values, I/O Expected Outcomes/Goals: To meet >75% estimated needs Fu 3-5 days Date of Service: Feb 14, 2025 Billing Provider: LISA ESCOBAR MD Common Visit Codes: [id number] INP/OBS CARE(HIGH) KOLBY MOTLEY Feb 14, 2025 17:49 LISA ESCOBAR MD Feb 19, 2025 20:13
[2025-02-15] VITALS (7 sets, daily range): BP systolic 97–121; BP diastolic 56–91; PULSE 58–111; RESP 14–21; TEMP 97.9–98.5; O2SAT 94–99
[2025-02-15 05:23] LABS: Anion Gap 9 (5-15); Carbon Dioxide 25 mmol/L (20-31); Chloride 105 mmol/L (98-107); Potassium 4.7 mmol/L (3.5-5.1); Sodium 139 mmol/L (136-145)
[2025-02-15 05:24] LABS: Calcium 9.4 mg/dL (8.7-10.4)
[2025-02-15 05:29] LABS: BUN/Creatinine Ratio 16.4 (10.0-20.0); Glucose 84 mg/dL (74-106)
[2025-02-15 05:38] LABS: Blood Urea Nitrogen 24 mg/dL (9-23)
[2025-02-15] MEDS ORDERED: POTA-36 PO (11:03)
[2025-02-15] MEDS ORDERED: RIVA20TA PO (11:03)
[2025-02-15] MEDS ORDERED: EMPA1TAB PO (11:03)
[2025-02-15] MEDS ORDERED: METO25TA93 PO (11:03)
[2025-02-15] MEDS ORDERED: SPIR25TA PO (11:03)
[2025-02-15] MEDS ORDERED: FURO1TAB31 PO (11:03)
--- NOTE | 2025-02-15 17:48 | DVHDSRES ---
Discharge Summary Date of Admission Resident Creating Document: KOLBY MOTLEY RESIDENT Feb 06, 2025 at 04:57 Date of Discharge: Feb 15, 2025 Admitting Diagnosis Acute hypoxic respiratory failure, likely due to CHF exacerbation . Wounds: No wound was present. Labs/Diagnostic Data: Laboratory Results Test 02/15/25 04:19 02/13/25 11:43 02/13/25 05:22 02/12/25 05:38 Sodium Level 139 mmol/L (136-145) Potassium Level 4.7 mmol/L (3.5-5.1) Chloride Level 105 mmol/L (98-107) Carbon Dioxide Level 25 mmol/L (20-31) Anion Gap 9 (5-15) Blood Urea Nitrogen 24 mg/dL (9-23) Creatinine 1.46 mg/dL (0.700-1.30) Glomerular Filtration Rate Calc 61 mL/min (>90) BUN/Creatinine Ratio 16.4 (10.0-20.0) Serum Glucose 84 mg/dL (74-106) Calcium Level 9.4 mg/dL (8.7-10.4) Vancomycin Level Trough 20.6 ug/mL (5-10) White Blood Count 7.5 10^3/uL (4.4-10.8) Red Blood Count 4.23 10^6/uL (4.5-5.90) Hemoglobin 13.8 g/dL (13.5-17.5) Hematocrit 41.4 % (41.0-53.0) Mean Corpuscular Volume 97.7 fL (80.0-100.0) Mean Corpuscular Hemoglobin 32.6 pg (28.0-32.0) Mean Corpuscular Hemoglobin Concent 33.4 g/dL (32.0-36.0) Red Cell Distribution Width 14.8 % (11.8-14.3) Platelet Count 251 10^3/uL (140-450) Mean Platelet Volume 9.4 fL (6.9-10.8) Neutrophils (%) (Auto) 67.8 % (37.0-80.0) Lymphocytes (%) (Auto) 17.9 % (10.0-50.0) Monocytes (%) (Auto) 10.9 % (0.0-12.0) Eosinophils (%) (Auto) 2.3 % (0.0-7.0) Basophils (%) (Auto) 1.1 % (0.0-2.0) Neutrophils # (Auto) 5.1 10 ^3/uL (1.6-8.6) Lymphocytes # (Auto) 1.3 10 ^3/uL (0.4-5.4) Monocytes # (Auto) 0.8 10 ^3/uL (0-1.3) Eosinophils # (Auto) 0.2 10 ^3/uL (0-0.8) Basophils # (Auto) 0.1 10 ^3/uL (0-0.2) Nucleated Red Blood Cells 0.1 % Phosphorus Level 3.4 mg/dL (2.4-5.1) Magnesium Level 2.2 mg/dL (1.6-2.6) Test 02/08/25 04:35 02/07/25 09:09 02/07/25 04:01 02/06/25 05:40 Random Vancomycin Level 11.6 ug/mL (5-10) Influenza Type A Antigen Negative (Negative) Influenza Type B Antigen Negative (Negative) SARS-CoV-2 Antigen (Rapid) Negative (NEGATIVE) Lactic Acid Level 1.2 mmol/L (0.4-2.0) Total Bilirubin 1.0 mg/dL (0.2-1.0) Aspartate Amino Transferase (AST) 48 U/L (13-40) Alanine Aminotransferase (ALT) 114 U/L (7-40) Alkaline Phosphatase 89 U/L (46-116) Total Protein 5.8 g/dL (5.7-8.2) Albumin 3.6 g/dL (3.2-4.8) Troponin I High Sensitivity 91 ng/L (</=54) Test 02/06/25 03:38 02/06/25 02:50 02/06/25 02:43 Urine Color Light-yellow (Yellow) Urine Clarity Clear (Clear) Urine pH 5.0 (5.0-9.0) Urine Specific [place] 1.008 (1.001-1.035) Urine Protein Negative (Negative) Urine Ketones Negative (Negative) Urine Blood Negative /uL (Negative) Urine Nitrite Negative (Negative) Urine Bilirubin Negative (Negative) Urine Urobilinogen Normal mg/dL (Negative) Urine Leukocyte Esterase Negative /uL (Negative) Urine RBC None seen /hpf (0 - 3) Urine Microscopic WBC < 1 /HPF (0-3) Urine Squamous Epithelial Cells None seen /hpf (<5) Urine Bacteria None seen /hpf (None Seen) Urine Glucose Normal mg/dL (Normal) Urine Opiates Screen Neg (NEGATIVE) Urine Fentanyl Screen Neg (NEGATIVE) Urine Barbiturates Screen Neg (NEGATIVE) Urine Phencyclidine Screen Neg (NEGATIVE) Urine Amphetamines Screen Pos (NEGATIVE) Urine Benzodiazepines Screen Neg (NEGATIVE) Urine Cocaine Screen Neg (NEGATIVE) Urine Cannabinoids Screen Neg (NEGATIVE) Blood Gas Specimen Type Arterial Blood Gas Sample Site Left radial Blood Gas Patient Temperature 37.0 Arterial Blood Date Drawn [id number] Arterial Blood pH 7.459 (7.350-7.450) Arterial Blood Partial Pressure CO2 26.3 mmHg (35.0-48.0) Arterial Blood Partial Pressure O2 77.0 mmHg (83.0-108.0) Arterial Blood HCO3 18.2 mmol/L (21.0-28.0) Arterial Blood Oxygen Saturation 95.4 % (94.0-98.0) Arterial Blood Base Excess -3.9 mmol/L (-2.0-3.0) Arterial Blood Oxyhemoglobin 94.0 % (94.0-98.0) Arterial Blood Carboxyhemoglobin 1.0 % (0.5-1.5) Arterial Blood Methemoglobin 0.5 % (0.0-1.5) Demond Test Modified Blood Gas Total Hemoglobin 14.50 g/dL (13.5-17.5) Blood Gas Set Respiration Rate 12.0 Blood Gas Modality Mask - bipap FiO2 % 30.0 Blood Gas EPAP 6 Blood Gas IPAP 12 B-Type Natriuretic Peptide 2319.83 pg/mL (0-100) Other Laboratory Tests 02/15/25 04:19 02/13/25 05:22 Brief Hx & Hospital Course: This is a 44-year-old male with past medical history of methamphetamine induced end-stage dilated cardiomyopathy, recurrent DVT with pulmonary emboli, dyslipidemia came to the hospital due to shortness of breath since 3 days. Per patient, he ran out of medicine 5 days back and has been using methamphetamine (last smoke was 1 day before admission). He also reports of chest discomfort, and cough. He denies fever, palpitation, or any recent sick contacts/chest trauma. PMHx: methamphetamine induced end-stage dilated cardiomyopathy, recurrent DVT with pulmonary emboli, dyslipidemia Social history: Smokes cigarettes and methamphetamine Home medication: Xarelto 20 mg daily, Jardiance 10 mg, Lasix 40 mg twice daily, Lopressor 25 mg, with the patient ran out of medicine 5 days back. Allergic history: No known allergy Hospital course: Initially presented with acute hypoxic respiratory failure due to CHF exacerbation. Initial EKG shows sinus tachycardia with no significant ST or T wave changes. Trop I is mildly raised at 70s, stable, BNP is raised at 2300 .Echo shows dilated all cardiac chamber, EF 7% with RSVP 57 and Chest x-ray shows cardiomegaly. Patient had 2 episodes of SVT at ED 1st episode was reverted with Cardizem and 2nd episode was reverted to Sinus rhythm spontaneously. the patient was initially on 6 L Oxymizer and later down to room air. patient was treated with IV Lasix 80 mg daily and resumed GDM T. Patient was diuresing almost 9 L fluid, wet weight was 100 kg later dropped down to 91 kg. Patient was septic and complaint of severe left leg pain, initially empirically treated with IV vancomycin and IV ceftriaxone daily for [address] of the left leg ruled out cellulitis and duplex scan of the lower extremity demonstrated no sign of hemodynamically significant stenosis in bilateral limbs. IV Lasix was converted to oral Lasix 40 mg p.o. daily for last 2 days. Discharge plan was discussed with the patient and all questions were answered. Patient is being discharged to home with Lasix 40 mg p.o. daily, Jardiance 10 mg daily, metoprolol succinate 25 mg daily, potassium chloride 10 mEq daily, Xarelto 20 mg daily and spironolactone 25 mg daily. Patient was advised to follow up with DC clinic in 1 week and Cardiology in 2 weeks. Physical examination: General Appearance: Alert, Oriented X3, Cooperative, on room air. HEENT: Atraumatic, PERRLA, EOMI, Mucous membrane moist/pink Respiratory: Bilateral fine basal crackles. Cardiovascular: Regular rate, Normal S1, Normal S2, No murmurs, no chest wall tenderness Abdominal: Normal bowel sounds, Soft, No tenderness, No hepatospenomegaly, No masses Extremities: Bilateral Pedal edema 1+, No clubbing, No cyanosis, Normal pulses. Skin: No rashes, No breakdown, No significant lesion Neuro: Normal speech, Strength at 5/5 X4 ext, Normal tone, Sensation intact, Cranial nerves 3-12 NL, Reflexes 2+ Psych/Mental Status: Mental status NL, Mood NL Consults/Reason for consult Cardiology was consulted. Operations or Procedures EXAM: US BILAT LOWER DVT Clinical History: To exclude DVT Comparison: US BILAT LOWER DVT on DOS: 01/18/25, US BILAT LOWER DVT on DOS: 07/14/24 Technique: Duplex Doppler evaluation of the deep venous systems of both lower extremities from the common femoral veins to the popliteal veins including color Doppler and spectral/pulsed waveform analysis was performed. Findings: No visible intraluminal venous thrombus. No evidence of incompressibility or abnormal color or spectral Doppler flow visualized in the deep bilateral lower extremity veins. Proximal greater saphenous veins are grossly unremarkable. Impression: 1. No sonographic evidence of deep venous thrombosis throughout the bilateral lower extremities from the popliteal veins to the common femoral veins. CHEST RADIOGRAPH Indication: PROTOCOL Technique: Single frontal view of the chest was obtained Comparison: XY CHEST XRAY 1 VIEW on DOS: 02/06/25 FINDINGS: Lines and Tubes: None Lungs: No focal consolidation. Pleura: No effusion. No pneumothorax. Cardiomediastinal contours: Cardiomegaly. Bones: No acute osseous abnormality. IMPRESSION: 1. Cardiomegaly. 2. No focal airspace disease. INDICATION: Painful tense swelling of left lower extremity FINDINGS: The alignment is normal. The joint spaces are normal. There is no fracture, dislocation or aggressive osseous lesion. Extensive near water attenuation material extends the length of the left lower extremity along the lateral subcutaneous soft tissues from the level of the hip to the knee and measures up to 2.4 cm in thickness. There is no discretely organized collection of this fluid to suggest an abscess formation at this time. Moderate circumferential soft tissue swelling and edema with mild tracking fluid within the distal aspect of the left extremity. IMPRESSION: 1. Ill-defined extensive subcutaneous fluid with associated soft tissue swelling and edema throughout the lateral aspect of the left leg extending from the hip to the knee with less well-defined circumferential soft tissue swelling and edema extending distally to the ankle. No definable organized fluid collection to suggest abscess at this time. BILATERAL Lower Extremity Arterial Duplex Date: 02/14/2025 03:50 PM Duplex Doppler evaluation including color Doppler and spectral/pulsed waveform analysis of the lower extremity arteries was performed. Finding: RIGHT: Peak systolic velocities are as follows: MANAGER STAFFING 76 cm/s triphasic Deep femoral 39 cm/s triphasic SFA proximal 61 cm/s triphasic SFA mid-portion 74 cm/s triphasic SFA distal 74 cm/s triphasic Popliteal 50 cm/s triphasic Posterior tibial 74 cm/s triphasic Dorsalis pedis 57 cm/s triphasic The waveforms are triphasic waveform throughout. LEFT: Peak systolic velocities are as follows: MANAGER STAFFING 85 cm/s triphasic Deep femoral 72 cm/s triphasic SFA proximal 55 cm/s triphasic SFA mid-portion 74 cm/s triphasic SFA distal 71 cm/s triphasic Popliteal 58 cm/s triphasic Posterior tibial 62 cm/s triphasic Anterior tibial 35 cm/s triphasic Dorsalis pedis 58 cm/s triphasic The waveforms are triphasic waveform throughout. REFERENCE VALUES, [facility] ([facility]) vascular Imaging Lab Criteria: Peak systolic velocity ranges (in cm/sec) are as follows: <150 cm/s - <20 % stenosis 150-200 cm/s - 20-49% stenosis 200-300 cm/s - 50-75% stenosis >300 cm/s -> 75% stenosis IMPRESSION: 1. There is no evidence for peripheral vascular insufficiency in the right lower extremity. 2. There is no evidence for peripheral vascular insufficiency in the left lower extremity. Condition at Discharge: Guarded Final Diagnosis/Problems List Left leg pain ruled out cellulitis Sepsis likely due to pneumonia Possible gram positive/gram negative pneumonia Acute hypoxic respiratory failure, likely due to CHF exacerbation Acute on chronic decompensated systolic heart failure, due to medication nonadherence/methamphetamine use disorder Volume overload, due to systolic heart failure Possible NSTEMI type 2 Hyperbilirubinemia with transaminitis likely due to hepatic congestion Severe mitral regurgitation Severe tricuspid regurgitation Pulmonary hypertension History of DVT and pulmonary emboli Dyslipidemia SVT, currently sinus rhythm, at 2 episodes of SVT at hospital 1st episode was reverted with Cardizem and 2nd episode was reverted to Sinus rhythm spontaneously Medication nonadherence ORLY, on possible CKD, likely VMN Currently smoker and methamphetamine abuse disorder Discharge Disposition: Home Discharge Instruct/Medications Diet: Consistent carbohydrate, Renal Activity: No Restrictions, As Tolerated Follow Up/Referral: Follow up with DC clinic in 1 week. Follow up wit Cardiology in 2 weeks Medications: As per EMR Scheduled Empagliflozin (Jardiance), 10 MG PO DAILY Empagliflozin (Jardiance), 10 MG PO DAILY Furosemide (Furosemide), 1 TAB PO BID Furosemide (Lasix), 40 MG PO DAILY Metoprolol Succinate (Metoprolol Succinate Er), 1 TAB PO DAILY Metoprolol Tartrate (Lopressor), 25 MG PO BID Potassium Chloride (Klor-Con M10), 1 TAB PO DAILY Potassium Chloride (Potassium Chloride Cr), 1 TAB PO DAILY Rivaroxaban (Xarelto Tablet), 1 TAB PO DAILY Rivaroxaban (Xarelto), 1 TAB PO DAILY Spironolactone (Aldactone), 1 TAB PO DAILY Discharge Statement: "Patient was advised to return to the ER or call 911 if any headaches, dizziness, shortness of breath, chest pain, abdominal pain, bleeding, fevers, or worsening of medical condition. Patient was counseled about treatment plan, medications, possible side effects, patientverbalized understanding. All questions were answered to the best of my ability. This discharge took greater then 30 minutes in planning, reviewing documentation, counseling the patient, and discussing with other team members." ASSESSMENT ASSESSMENT Assessment Acute hypoxic respiratory failure, likely due to CHF exacerbation . Acute on chronic decompensated systolic heart failure, due to medication nonadherence/methamphetamine use disorder . KOLBY MOTLEY RESIDENT Feb 15, 2025 17:48
[2025-02-16] VITALS (7 sets, daily range): BP systolic 107–115; BP diastolic 56–92; PULSE 54–110; RESP 17–18; TEMP 97.2–98.4; O2SAT 90–98
--- NOTE | 2025-02-16 18:50 | DVHPN2 ---
Subjective Complaining of left lower extremity pain. 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 Medications Current Medications Medications Dose Ordered Sig/Pravin Route Start Time Stop Time Status Last Admin Dose Admin Rivaroxaban 20 mg DAILY PO 02/06/25 10:00 02/16/25 10:55 20 MG Empaglifozin 10 mg DAILY PO 02/06/25 10:00 02/16/25 10:55 10 MG Ondansetron HCl 4 mg Q4HP PRN IV 02/06/25 05:00 Acetaminophen 650 mg Q6HP PRN PO 02/06/25 05:00 02/15/25 10:35 650 MG Spironolactone 25 mg DAILY PO 02/07/25 10:00 02/16/25 10:56 25 MG Metoprolol Succinate 25 mg DAILY PO 02/07/25 10:00 02/16/25 10:54 25 MG Furosemide 40 mg DAILY PO 02/14/25 10:00 02/16/25 10:55 40 MG Laboratory Results Laboratory Tests 02/13/25 05:22 02/15/25 04:19 Urinalysis Test 02/06/25 03:38 Urine Color Light-yellow (Yellow) Urine Clarity Clear (Clear) Urine pH 5.0 (5.0-9.0) Urine Specific [place] 1.008 (1.001-1.035) Urine Protein Negative (Negative) Urine Ketones Negative (Negative) Urine Blood Negative /uL (Negative) Urine Nitrite Negative (Negative) Urine Bilirubin Negative (Negative) Urine Urobilinogen Normal mg/dL (Negative) Urine Leukocyte Esterase Negative /uL (Negative) Urine RBC None seen /hpf (0 - 3) Urine Microscopic WBC < 1 /HPF (0-3) Urine Squamous Epithelial Cells None seen /hpf (<5) Urine Bacteria None seen /hpf (None Seen) Urine Glucose Normal mg/dL (Normal) Microbiology Microbiology Date/Time Source Procedure Growth Status 02/07/25 17:22 Nose MRSA Screen - Final Complete 02/07/25 15:00 Sputum Expectorated Sputum Gram Stain - Final Complete 02/07/25 15:00 Sputum Expectorated Sputum Respiratory Culture - Final Complete 02/06/25 04:19 Blood Blood Culture - Final NO GROWTH AFTER 5 DAYS OF INCUBATION. Complete Assessment/Plan Assessment/Plan 44-year-old male admitted for 1. Sepsis secondary to pneumonia 2. Pneumonia 3. Acute on chronic congestive heart failure with systolic dysfunction 4. NSTEMI type 2 5. Pulmonary hypertension 6. Severe mitral regurgitation/tricuspid regurgitation 7. 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
[2025-02-17] VITALS (7 sets, daily range): BP systolic 99–147; BP diastolic 60–81; PULSE 53–105; RESP 14–17; TEMP 98–98.4; O2SAT 90–100
--- NOTE | 2025-02-17 17:37 | DVHPN2 ---
Subjective Complaining of left lower extremity pain. 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 Medications Current Medications Medications Dose Ordered Sig/Pravin Route Start Time Stop Time Status Last Admin Dose Admin Rivaroxaban 20 mg DAILY PO 02/06/25 10:00 02/17/25 09:28 20 MG Empaglifozin 10 mg DAILY PO 02/06/25 10:00 02/17/25 09:28 10 MG Ondansetron HCl 4 mg Q4HP PRN IV 02/06/25 05:00 Acetaminophen 650 mg Q6HP PRN PO 02/06/25 05:00 02/17/25 14:30 650 MG Spironolactone 25 mg DAILY PO 02/07/25 10:00 02/17/25 09:28 25 MG Metoprolol Succinate 25 mg DAILY PO 02/07/25 10:00 02/17/25 09:28 25 MG Furosemide 40 mg DAILY PO 02/14/25 10:00 02/17/25 09:27 40 MG Laboratory Results Laboratory Tests 02/13/25 05:22 02/15/25 04:19 Urinalysis Test 02/06/25 03:38 Urine Color Light-yellow (Yellow) Urine Clarity Clear (Clear) Urine pH 5.0 (5.0-9.0) Urine Specific [place] 1.008 (1.001-1.035) Urine Protein Negative (Negative) Urine Ketones Negative (Negative) Urine Blood Negative /uL (Negative) Urine Nitrite Negative (Negative) Urine Bilirubin Negative (Negative) Urine Urobilinogen Normal mg/dL (Negative) Urine Leukocyte Esterase Negative /uL (Negative) Urine RBC None seen /hpf (0 - 3) Urine Microscopic WBC < 1 /HPF (0-3) Urine Squamous Epithelial Cells None seen /hpf (<5) Urine Bacteria None seen /hpf (None Seen) Urine Glucose Normal mg/dL (Normal) Microbiology Microbiology Date/Time Source Procedure Growth Status 02/07/25 17:22 Nose MRSA Screen - Final Complete 02/07/25 15:00 Sputum Expectorated Sputum Gram Stain - Final Complete 02/07/25 15:00 Sputum Expectorated Sputum Respiratory Culture - Final Complete 02/06/25 04:19 Blood Blood Culture - Final NO GROWTH AFTER 5 DAYS OF INCUBATION. Complete Assessment/Plan Assessment/Plan 44-year-old male admitted for 1. Sepsis secondary to pneumonia 2. Pneumonia 3. Acute on chronic congestive heart failure with systolic dysfunction 4. NSTEMI type 2 5. Pulmonary hypertension 6. Severe mitral regurgitation/tricuspid regurgitation 7. 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
[2025-02-18] VITALS (7 sets, daily range): BP systolic 97–116; BP diastolic 58–78; PULSE 57–111; RESP 16–19; TEMP 97.6–98.2; O2SAT 93–98
--- NOTE | 2025-02-18 12:59 | ECG ---
[facility] Test Date: 2025-02-07 Test Time: 01:48:05 Pat Name: AMBER STRANGE Department: ED Room: 0277 A Gender: M Manager Generation: : 1980 Requested By: PHU VENCES Order Number: [id number] Reading MD: Measurements Intervals [place] Rate: 179 P: 0 DE: 79 QRS: 104 QRSD: 151 T: -80 QT: 303 QTc: 524 Interpretive Statements Extreme tachycardia with wide complex, no further rhythm analysis attempted Baseline wander in lead(s) V2,V3,V4,V5,V6 Please click the below link to view image of tracing.
--- NOTE | 2025-02-18 14:11 | DVHPNRES ---
Progress Note Date Seen: Feb 18, 2025 Resident Creating Document: PHU VENCES RESDIENT Medical Necessity Reason Pt with a Central, PICC or Fol: No Subjective Review of Systems Patient seen and examined at the bedside. Patient is feeling better since admission and does not have any active complaint including chest pain and shortness of breaths. Patient reports: No new complaints Objective vital signs Vital Sign Date Time Temp Pulse Resp B/P (MAP) Pulse Ox O2 Delivery O2 Flow Rate FiO2 02/18/25 12:30 97.7 57 16 97/76 (83) 93 97.7 02/18/25 08:00 Room Air* 0 21 Total Intake and Output 02/17/25 02/17/25 02/18/25 15:00 23:00 07:00 Intake Total 420 ml 900 ml Output Total 1651 ml 1600 ml Balance -1231 ml -700 ml medications Current Medications Medications Dose Ordered Sig/Pravin Route Start Time Stop Time Status Last Admin Dose Admin Rivaroxaban 20 mg DAILY PO 02/06/25 10:00 02/18/25 08:44 20 MG Empaglifozin 10 mg DAILY PO 02/06/25 10:00 02/18/25 08:43 10 MG Ondansetron HCl 4 mg Q4HP PRN IV 02/06/25 05:00 Acetaminophen 650 mg Q6HP PRN PO 02/06/25 05:00 02/18/25 10:51 650 MG Spironolactone 25 mg DAILY PO 02/07/25 10:00 02/18/25 08:43 25 MG Metoprolol Succinate 25 mg DAILY PO 02/07/25 10:00 02/18/25 08:44 25 MG Furosemide 40 mg DAILY PO 02/14/25 10:00 02/18/25 08:44 40 MG Examination General Appearance: Alert, Oriented X3, Cooperative, No acute distress HEENT: Atraumatic, PERRLA, EOMI, Mucous membrane moist/pink Respiratory: Clear to auscultation, Normal air movement Cardiovascular: Regular rate, Normal S1, Normal S2, No murmurs, no chest wall tenderness Abdominal: Normal bowel sounds, Soft, No tenderness, No hepatospenomegaly, No masses Extremities: No clubbing, No cyanosis, No edema, Normal pulses, No tenderness/swelling Skin: No rashes, No breakdown, No significant lesion Neuro: Normal gait, Normal speech, Strength at 5/5 X4 ext, Normal tone, Sensation intact, Cranial nerves 3-12 NL, Reflexes 2+ Psych/Mental Status: Mental status NL, Mood NL laboratory and microbiology Laboratory Tests 02/15/25 04:19 02/13/25 05:22 Test 02/15/25 04:19 Range/Units Serum Glucose 84 74-106 mg/dL Microbiology Date/Time Source Procedure Growth Status 02/07/25 17:22 Nose MRSA Screen - Final Complete 02/07/25 15:00 Sputum Expectorated Sputum Gram Stain - Final Complete 02/07/25 15:00 Sputum Expectorated Sputum Respiratory Culture - Final Complete 02/06/25 04:19 Blood Blood Culture - Final NO GROWTH AFTER 5 DAYS OF INCUBATION. Complete Labs and/or images reviewed: Labs reviewed by me, Image(s) reviewed by me Problem List/Assessment/Plan Problem List/Assessment/Plan Left leg pain ruled out cellulitis - CT Left lower leg scan Ill-defined extensive subcutaneous fluid with associated soft tissue swelling and edema throughout the lateral aspect of the left leg extending from the hip to the knee with less well-defined circumferential soft tissue swelling and edema extending distally to the ankle. No definable organized fluid collection to suggest abscess at this time. - Duplex scan of te lower extremity showed there is no evidence for peripheral vascular insufficiency in the right and left lower extremity. - Discontinued IV vancomycin and IV ceftriaxone Sepsis likely due to pneumonia Possible gram positive/gram negative pneumonia Acute hypoxic respiratory failure, likely due to CHF exacerbation Acute on chronic decompensated systolic heart failure, due to medication nonadherence/methamphetamine use disorder Volume overload, due to systolic heart failure Possible NSTEMI type 2 Hyperbilirubinemia with transaminitis likely due to hepatic congestion Severe mitral regurgitation Severe tricuspid regurgitation Pulmonary hypertension History of DVT and pulmonary emboli Dyslipidemia SVT, currently sinus rhythm, at 2 episodes of SVT at hospital 1st episode was reverted with Cardizem and 2nd episode was reverted to Sinus rhythm spontaneously Medication nonadherence * EKGs shows sinus tachycardia with no significant ST or T-wave changes * Trop I is mildly raised at 70s, stable, BNP is raised at 2300 * Echo shows dilated all cardiac chamber, EF 7% with RSVP 57 * Chest x-ray shows cardiomegaly - Patient is on room air - Lasix 40 mg po daily - continue spironolactone 25 mg daily, Jardiance 10 mg daily and Xarelto 20 mg daily. - IV ceftriaxone 1 g daily - cardiology on board - strict I&O ORLY, on possible CKD, likely VMN Possible cradiorenal syndrome - Monitor BMP Currently smoker and methamphetamine abuse disorder - counseled patient regarding cessation of smoking and methamphetamine and discussed about the rehabilitation. DVT prophylaxis - patient is on Xarelto Goal of care discussed with the patient for more than 18 minutes full code Patient was discharged on 02/15/2025, but due to unavailability of walker, the patient was kept in the hospital. Today, patient walker was provided at the bedside. The patient is discharged to home. Plan discussed with Dr. Chino Plan discussed with: Patient, Other (RN) My Orders My Orders Orders - PHU VENCES Procedure Category Date Status Time Discharge DISCHARGE 02/18/25 Verified 14:04 Dietary Evaluation Review Comments: 1) Continue current POC 2) Monitor PO intake, lab values, I/O Expected Outcomes/Goals: To meet >75% estimated needs Fu 3-5 days PHU VENCES Feb 18, 2025 14:11
== END 2025-02-18 16:44 | disposition home or self-care (01) | DRG 720 ==
LOC: ER 02:39 → EDBD 02:39 → OVERFLOW 04:57 → DOU IN ICU 02-07 16:13 → TELE-WESTW 02-09 17:31 → WEST WING 02-13 22:57
PROVIDERS: ADMIT Student in an Organized Health Care Education/Training Program; ATTEND Student in an Organized Health Care Education/Training Program
PROC: 5A09357 Assistance with Respiratory Ventilation, Less than 24 Consecutive Hours, Continuous Positive Airway Pressure (ICD-10-PCS; principal; 2025-02-06)
PROC: 5A0935A Assistance with Respiratory Ventilation, Less than 24 Consecutive Hours, High Flow/Velocity Cannula (ICD-10-PCS; 2025-02-06)
DX: A41.59 Other Gram-negative sepsis (principal); N17.0 Acute kidney failure with tubular necrosis; J96.21 Acute and chronic respiratory failure with hypoxia; I50.23 Acute on chronic systolic (congestive) heart failure; J15.69 Pneumonia due to other Gram-negative bacteria; I21.A1 Myocardial infarction type 2; I11.0 Hypertensive heart disease with heart failure; J15.9 Unspecified bacterial pneumonia; I27.20 Pulmonary hypertension, unspecified; E66.9 Obesity, unspecified; E78.5 Hyperlipidemia, unspecified; F17.210 Nicotine dependence, cigarettes, uncomplicated; F15.10 Other stimulant abuse, uncomplicated; I08.1 Rheumatic disorders of both mitral and tricuspid valves; I47.10 Supraventricular tachycardia, unspecified; E80.6 Other disorders of bilirubin metabolism; Z86.718 Personal history of other venous thrombosis and embolism; Z86.711 Personal history of pulmonary embolism; Z91.148 Patient's other noncompliance with medication regimen for other reason; Z79.01 Long term (current) use of anticoagulants; Z68.29 Body mass index [BMI] 29.0-29.9, adult; Z79.899 Other long term (current) drug therapy; E87.70 Fluid overload, unspecified; R74.01 Elevation of levels of liver transaminase levels; K76.1 Chronic passive congestion of liver
CPT/HCPCS: 36415; 36600; 71045; 73700; 80048; 80053; 80202; 80307; 81001; 82565; 82805; 83605; 83735; 83880; 84100; 84132; 84484; 85025; 87040; 87070; 87081; 87205; 87426; 87804; 93005; 93925; 93970; 94640; 94660; 96374; 96375; 97110; 97116; 97163; 99291; G0378; J2250